=== PATIENT | female | born 1970 | race Hispanic/Latino ===

== ENCOUNTER 2016-09-21 07:56 | Inpatient (IN) | payer OTHER ==
[2016-09-21 09:03] LABS: Hematocrit 34.1 % (30.3-42.9); Hemoglobin 11.3 gm/dl (10.1-14.3); Mean Corpuscular HGB Conc 33 % (30-34); Mean Corpuscular Hemoglobin 28 pg (28-32); Mean Corpuscular Volume 85 fl (79-97); Platelet Count 394 K/mm3 (140-440); Red Blood Count 4.03 M/mm3 (3.65-5.03); Red Cell Distribution Width 13.4 % (13.2-15.2); White Blood Count 19.6 K/mm3 (4.5-11.0)
[2016-09-21 09:17] LABS: BUN/Creatinine Ratio 13.75; Blood Urea Nitrogen 11 mg/dL (7-17); Calcium 8.2 mg/dL (8.4-10.2); Carbon Dioxide 21 mmol/L (22-30); Glucose 404 mg/dL (65-100)
[2016-09-21 09:35] LABS: Anion Gap 25 mmol/L; Chloride 90.7 mmol/L (98-107); Potassium 3.1 mmol/L (3.6-5.0); Sodium 134 mmol/L (137-145)
[2016-09-21 10:52] LABS: Basophils % (Manual) 0 % (0.0-1.8); Blastocytes % (Manual) 0 %
[2016-09-21 10:53] LABS: Diff Status Complete; RBC Morphology Normal
--- NOTE | 2016-09-21 12:21 | Emergency Department Report ---
HPI - General Chief Complaint: Skin/Abscess/Foreign Body Time Seen by Provider: 09/21/16 12:05 - HPI HPI: Room 7 The patient is a 46-year-old female presenting with a chief complaint of buttocks abscess. Patient states for the past week she is "felt miserable." Patient states her symptoms include body aches, subjective fever and chills. Patient states last night she developed nausea vomiting. Patient states approximately one week ago she noticed a "cyst" on her left buttocks that has been draining "red pus." The patient states she has had similar episodes in the past she has same feeling. The patient currently gives her pain a score of 8-9/10 Location: Left buttocks Duration: One week Quality: Pain Severity: 8-9/10 Modifying factors: [see above] Context: [see above] Mode of transportation: Unknown ED Past Medical Hx - Past Medical History Hx Hypertension: Yes Hx Congestive Heart Failure: Yes Hx Diabetes: Yes Hx Renal Disease: Yes (CKD) Additional medical history: pacemaker, chronic back pain, peripheral neuropathy - Surgical History Hx Pacemaker: Yes Hx Internal Defibrillator: Yes Hx Breast Surgery: Yes Additional Surgical History: breast surg x 2 - Family History Family history: no significant - Social History Smoking Status: Current Every Day Smoker Substance Use Type: None (denies illicit drug use) - Medications Home Medications: Home Medications Medication Instructions Recorded Confirmed Last Taken Type metFORMIN [Glucophage] 1,000 mg PO BID 07/31/14 02/08/16 02/07/16 History Lansoprazole [Prevacid] 30 mg PO QDAY 11/29/15 02/08/16 02/07/16 History PARoxetine [Paxil] 40 mg PO DAILY 11/29/15 02/08/16 02/07/16 History Cephalexin [Keflex] 250 mg PO QID #40 capsule 06/25/16 Unknown Rx Ibuprofen [Motrin 600 MG tab] 600 mg PO Q8H PRN #30 tablet 06/25/16 Unknown Rx Clindamycin [Clindamycin CAP] 300 mg PO Q8H #20 cap 06/29/16 Unknown Rx oxyCODONE /ACETAMINOPHEN [Percocet 1 tab PO Q6HR PRN #20 tablet 06/29/16 Unknown Rx 5/325] ED Review of Systems ROS: Stated complaint: INFECTED CYST Other details as noted in HPI Comment: All other systems reviewed and negative Constitutional: chills, fever (subjective) Eyes: denies: eye pain, eye discharge, vision change ENT: denies: ear pain, throat pain Respiratory: denies: cough, shortness of breath, wheezing Cardiovascular: denies: chest pain, palpitations Endocrine: no symptoms reported Gastrointestinal: nausea, vomiting. denies: abdominal pain, diarrhea Musculoskeletal: myalgia Skin: lesions. denies: rash Neurological: denies: headache, weakness, paresthesias Psychiatric: denies: anxiety, depression Hematological/Lymphatic: denies: easy bleeding, easy bruising Physical Exam - Physical Exam Vital Signs: Vital Signs 09/21/16 08:10 Temperature 98.9 F Pulse Rate 110 H Respiratory 19 Rate Blood Pressure 118/71 O2 Sat by Pulse 100 Oximetry Physical Exam: GENERAL: The patient is well-developed well-nourished female lying on stretcher in right lateral decubitus position not appearing to be in acute distress. [] HEENT: Normocephalic. Atraumatic. Extraocular motions are intact. Patient has moist mucous membranes. NECK: Supple. Trachea midline CHEST/LUNGS: Clear to auscultation. There is no respiratory distress noted. HEART/CARDIOVASCULAR: Regular. There is tachycardia. There is no gallop rub or murmur. ABDOMEN: Abdomen is soft, nontender. Patient has normal bowel sounds. There is no abdominal distention. SKIN: . Left perianal gluteal fullness palpated. No overlying erythema. No definite abscess palpated. Intertriginous candidiasis of the gluteal cleft/ perineum There is no diaphoresis. NEURO: The patient is awake, alert, and oriented. The patient is cooperative. The patient has normal speech MUSCULOSKELETAL: There is no evidence of acute injury. ED Course Vital Signs 09/21/16 08:10 Temperature 98.9 F Pulse Rate 110 H Respiratory 19 Rate Blood Pressure 118/71 O2 Sat by Pulse 100 Oximetry ED Medical Decision Making - Lab Data Result diagrams: 09/21/16 08:39 09/21/16 08:39 Laboratory Tests 09/21/16 09/21/16 09/21/16 08:39 08:39 08:39 WBC 19.6 H RBC 4.03 Hgb 11.3 Hct 34.1 MCV 85 MCH 28 MCHC 33 RDW 13.4 Plt Count 394 Add Manual Diff Complete Total Counted 100 Seg Neuts % (Manual) 89.0 H Band Neutrophils % 4.0 Lymphocytes % (Manual) 3.0 L Reactive Lymphs % (Man) 0 Monocytes % (Manual) 3.0 Eosinophils % (Manual) 1.0 Basophils % (Manual) 0 Metamyelocytes % 0 Myelocytes % 0 Promyelocytes % 0 Blast Cells % 0 Nucleated RBC % Not Reportable Seg Neutrophils # Man 17.4 H Band Neutrophils # 0.8 Lymphocytes # (Manual) 0.6 L Abs React Lymphs (Man) 0.0 Monocytes # (Manual) 0.6 Eosinophils # (Manual) 0.2 Basophils # (Manual) 0.0 Metamyelocytes # 0.0 Myelocytes # 0.0 Promyelocytes # 0.0 Blast Cells # 0.0 WBC Morphology Not Reportable Hypersegmented Neuts Not Reportable Hyposegmented Neuts Not Reportable Hypogranular Neuts Not Reportable Smudge Cells Not Reportable Toxic Granulation Not Reportable Toxic Vacuolation Not Reportable Dohle Bodies Not Reportable Pelger-Huet Anomaly Not Reportable Joel Rods Not Reportable Platelet Estimate Appears normal Clumped Platelets Not Reportable Plt Clumps, EDTA Not Reportable Large Platelets Not Reportable Giant Platelets Not Reportable Platelet Satelliting Not Reportable Plt Morphology Comment Not Reportable RBC Morphology Normal Dimorphic RBCs Not Reportable Polychromasia Not Reportable Hypochromasia Not Reportable Poikilocytosis Not Reportable Anisocytosis Not Reportable Microcytosis Not Reportable Macrocytosis Not Reportable Spherocytes Not Reportable Pappenheimer Bodies Not Reportable Sickle Cells Not Reportable Target Cells Not Reportable Tear Drop Cells Not Reportable Ovalocytes Not Reportable Helmet Cells Not Reportable [place] Bodies Not Reportable [place] Rings Not Reportable [place] Cells Not Reportable Bite Cells Not Reportable Crenated Cell Not Reportable Elliptocytes Not Reportable Acanthocytes (Spur) Not Reportable Rouleaux Not Reportable Hemoglobin C Crystals Not Reportable Schistocytes Not Reportable Malaria parasites Not Reportable Prashant Bodies Not Reportable Hem Pathologist Commnt No VBG pH Sodium 134 L Potassium 3.1 L Chloride 90.7 L Carbon Dioxide 21 L Anion Gap 25 BUN 11 Creatinine 0.8 Estimated GFR > 60 BUN/Creatinine Ratio 13.75 Glucose 404 H Calcium 8.2 L HCG, Qual Negative 03/16/17 12:38 WBC RBC Hgb Hct MCV MCH MCHC RDW Plt Count Add Manual Diff Total Counted Seg Neuts % (Manual) Band Neutrophils % Lymphocytes % (Manual) Reactive Lymphs % (Man) Monocytes % (Manual) Eosinophils % (Manual) Basophils % (Manual) Metamyelocytes % Myelocytes % Promyelocytes % Blast Cells % Nucleated RBC % Seg Neutrophils # Man Band Neutrophils # Lymphocytes # (Manual) Abs React Lymphs (Man) Monocytes # (Manual) Eosinophils # (Manual) Basophils # (Manual) Metamyelocytes # Myelocytes # Promyelocytes # Blast Cells # WBC Morphology Hypersegmented Neuts Hyposegmented Neuts Hypogranular Neuts Smudge Cells Toxic Granulation Toxic Vacuolation Dohle Bodies Pelger-Huet Anomaly Joel Rods Platelet Estimate Clumped Platelets Plt Clumps, EDTA Large Platelets Giant Platelets Platelet Satelliting Plt Morphology Comment RBC Morphology Dimorphic RBCs Polychromasia Hypochromasia Poikilocytosis Anisocytosis Microcytosis Macrocytosis Spherocytes Pappenheimer Bodies Sickle Cells Target Cells Tear Drop Cells Ovalocytes Helmet Cells [place] Bodies [place] Rings [place] Cells Bite Cells Crenated Cell Elliptocytes Acanthocytes (Spur) Rouleaux Hemoglobin C Crystals Schistocytes Malaria parasites Prashant Bodies Hem Pathologist Commnt VBG pH 7.454 H Sodium Potassium Chloride Carbon Dioxide Anion Gap BUN Creatinine Estimated GFR BUN/Creatinine Ratio Glucose Calcium HCG, Qual - Radiology Data Radiology results: report reviewed (CT pelvis), image reviewed (CT pelvis) CT pelvis (read by radiologist)-clamped or changes/cellulitis are seen in the left perirectal/perineal soft tissues with no evidence of abscess. - Differential Diagnosis gluteal abscess, deep space infection, Critical care attestation.: If time is entered above; I have spent that time in minutes in the direct care of this critically ill patient, excluding procedure time. ED Disposition Clinical Impression: Leukocytosis, Tachycardia, Hyperglycemia, Gluteal pain, Intertriginous candidiasis Disposition: OP ADMITTED IP TO THIS HOSP Is pt being admited?: Yes Does the pt Need Aspirin: Yes Condition: Fair Referrals: PRIMARY CARE, [Primary Care Provider] - 3-5 Days Time of Disposition: 13:46 (hospitalist paged)
[2016-09-21] MEDS ORDERED: ZOFRAN IV ONE ×2 (12:25→16:59)
[2016-09-21] MEDS ORDERED: NACL 0.9% 1000 ML 1,000 ML IV ONE (12:25)
[2016-09-21] MEDS ORDERED: SUBLIMAZE IV ONE (12:25)
--- NOTE | 2016-09-21 12:57 | Admit Criteria Form ---
Admission Criteria Documentation: CELLULITIS Clinical Indications for Admission to Inpatient Care (Place 'X' for any and all applicable criteria): Admission is indicated for ANY ONE of the following(1)(2)(3)(4)(5): [ ]I. Limb-threatening infection [ X]II. High-risk comorbid condition as indicated by ANY ONE of the following: [ ]a) Uncontrolled diabetes (eg, HbA1c greater than 10% (0.1)) [ ]b) Cirrhosis [ ]c) Neutropenia [ ]d) Asplenia [ ]e) Immunosuppression [X ]f) Symptomatic heart failure [ ]III. Failure of outpatient therapy as indicated by ALL of the following: [ ]a) Progression or no improvement after adequate trial (minimum of 48 hours, with longer period for stable lower extremity infection) [ ]b) Adequate antibiotic regimen as indicated by use of ANY ONE of the following: [ ]i) First-generation cephalosporin (e.g., cephalexin) [ ]ii) Antistaphylococcal penicillin (e.g., dicloxacillin) [ ]iii) Penicillin-allergic patient regimen (clindamycin, extended-spectrum fluoroquinolone, or doxycycline) [ ]iv) Resistant organism (eg, methicillin-resistant Staphylococcus aureus) regimen (6) [ ]c) Outpatient intravenous therapy regimen is not appropriate due to ANY ONE of the following. (7)(8)(9)(10): [ ]i) It was tried and was not successful (eg, progression of infection). [ ]ii) It is not available or cannot be arranged in a clinically appropriate time frame (e.g., the next day). [ ]iii) Clinical presentation (eg, acuity of infection, rapidity of progression, confirmed or suspected bacteremia) is judged to require ALL of the following: [ ]1) Immediate initiation of intravenous therapy ( eg, cannot wait for next day) [ ]2) Intensity of patient monitoring and observation (eg, vital sign measurement, checks for infection progression) that cannot be provided at other than inpatient level of care [ ]IV. Mental status changes [ ]V. Bacteremia [ ]. Hemodynamic instability [ ]VII. Suspected necrotizing soft tissue infection (e.g., gas in tissue)(11)( 12) [ ]VIII. Orbital infection (13)(14) [ ]IX. Associated surgical procedure (e.g., abscess drainage, debridement) not amenable to outpatient, emergency department, or observation care [ ]X. Cutaneous gangrene [ ]XI. High fever (temperature greater than 39.5 degrees C (103.1 degrees F) (oral)) not responsive to outpatient, emergency department, or observation care therapy [ ]XIII. Inpatient admission required rather than observation care (Also use Cellulitis: Observation Care as appropriate) because of ANY ONE of the following : [ ]a) Periorbital or perineal infection that is severe or worsening [ ]b) Severe pain requiring acute inpatient management [ ]c) IV fluid to replace significant ongoing (e.g., for over 24 hours) losses (greater than 3L/m2 per day) [ ]d) Compartment syndrome monitoring (17) [ ]e) Strict or protective (eg, laminar flow) isolation [ ]f) Urgent debridement or skin grafting [ ]g) Bone or joint debridement [ ]h) Immediate inpatient surgery [ ]i) Other condition, treatment or monitoring requiring inpatient admission Extended stay beyond goal length of stay may be needed for (1)(18): [ ]a) Necrotizing soft tissue infection or fasciitis [ ]b) Gram-negative infection [ ]c) Methicillin-resistant Staphylococcal aureus (MRSA) infection [ ]d) Peripheral venous insufficiency with cellulitis [ ]e) Extensive edema [ ]f) Sepsis or continued Hemodynamic instability [ ]g) Continued high fever or mental status change [ ]h) Bacteremia [ ]i) Active serious comorbid conditions ( eg, heart failure, renal insufficiency) The original [facility] content created by [facility] [employer] has been revised. The portions of the content which have been revised are identified through the use of italic text or in bold, and [facility] has neither reviewed nor approved the modified material. All other unmodified content is copyright [facility] Please see references footnoted in the original [facility] [employer] edition 2016 Admission Criteria Met: Yes
--- NOTE | 2016-09-21 13:37 | Cat Scan Report ---
CT of the pelvis with IV contrast. History: Left gluteal perirectal fullness and pain. Findings: There are no pelvic masses or abnormal fluid collections. No adenopathy is seen. The uterus and adnexal regions are unremarkable. There is edema in the left perirectal fat with no evidence of a focal fluid collection or other evidence of a perirectal abscess. The edema extends into the perineal and subcutaneous fat as well. Impression: Inflammatory changes/cellulitis are seen in the left perirectal/perineal soft tissues with no evidence of abscess.
[2016-09-21] MEDS ORDERED: LEVAQUIN 750MG/150ML 750 MG/150 ML BAG IV ONE (13:43)
[2016-09-21] MEDS ORDERED: ZOFRAN ONE (16:57)
[2016-09-21] MEDS ORDERED: PERCOCET 5/325 ONE (16:57)
[2016-09-21] MEDS ORDERED: PERCOCET 5/325 PO ONE (17:00)
--- NOTE | 2016-09-21 17:45 | History and Physical Report ---
History of Present Illness Date of examination: 09/21/16 Date of admission: 09/21/16 13:50 History of present illness: The patient is a 46-year-old female presenting with a chief complaint of buttocks abscess. Patient states for the past week she is "felt miserable." Patient states her symptoms include body aches, subjective fever and chills. Patient states last night she developed nausea vomiting. Patient states approximately one week ago she noticed a "cyst" on her left buttocks that has been draining "red pus." The patient states she has had similar episodes in the past she has same feeling. The patient currently gives her pain a score of 8-9/10 Past History Past Medical History: diabetes, GERD Medications and Allergies Allergies Allergy/AdvReac Type Severity Reaction Status Date / Time Sulfa (Sulfonamide Allergy Anaphylaxis Verified 09/21/16 08:14 Antibiotics) vancomycin Allergy "SHUTS Verified 09/21/16 08:14 KIDNEYS DOWN" Home Medications Medication Instructions Recorded Confirmed Last Taken Type metFORMIN [Glucophage] 1,000 mg PO BID 07/31/14 02/08/16 02/07/16 History Lansoprazole [Prevacid] 30 mg PO QDAY 11/29/15 02/08/16 02/07/16 History PARoxetine [Paxil] 40 mg PO DAILY 11/29/15 02/08/16 02/07/16 History Cephalexin [Keflex] 250 mg PO QID #40 capsule 06/25/16 Unknown Rx Ibuprofen [Motrin 600 MG tab] 600 mg PO Q8H PRN #30 tablet 06/25/16 Unknown Rx Clindamycin [Clindamycin CAP] 300 mg PO Q8H #20 cap 06/29/16 Unknown Rx oxyCODONE /ACETAMINOPHEN [Percocet 1 tab PO Q6HR PRN #20 tablet 06/29/16 Unknown Rx 5/325] Exam - Constitutional Vitals: Temp Pulse Resp BP Pulse Ox 98.9 F 104 H 16 137/84 97 09/21/16 17:05 09/21/16 17:05 09/21/16 17:05 09/21/16 17:05 09/21/16 17:05 General appearance: Present: no acute distress - EENT Eyes: Present: PERRL, EOM intact ENT: hearing intact, clear oral mucosa - Neck Neck: Present: supple, normal ROM - Respiratory Respiratory effort: normal Respiratory: bilateral: CTA - Cardiovascular Rhythm: regular Heart Sounds: Present: S1 & S2 - Extremities Extremities: no ischemia, No edema - Abdominal General gastrointestinal: Present: soft, non-tender, non-distended, normal bowel sounds - Rectal Rectal Exam: other (left buttock erythema and tenderness) - Musculoskeletal Musculoskeletal: strength equal bilaterally - Psychiatric Psychiatric: appropriate mood/affect, intact judgment & insight - Neurologic Neurologic: CNII-XII intact, moves all extremities Results - Labs CBC & Chem 7: 09/21/16 08:39 09/21/16 08:39 Labs: Laboratory Last Values WBC 19.6 K/mm3 (4.5-11.0) H 09/21/16 08:39 RBC 4.03 M/mm3 (3.65-5.03) 09/21/16 08:39 Hgb 11.3 gm/dl (10.1-14.3) 09/21/16 08:39 Hct 34.1 % (30.3-42.9) 09/21/16 08:39 MCV 85 fl (79-97) 09/21/16 08:39 MCH 28 pg (28-32) 09/21/16 08:39 MCHC 33 % (30-34) 09/21/16 08:39 RDW 13.4 % (13.2-15.2) 09/21/16 08:39 Plt Count 394 K/mm3 (140-440) 09/21/16 08:39 Add Manual Diff Complete 09/21/16 08:39 Total Counted 100 09/21/16 08:39 Seg Neuts % (Manual) 89.0 % (40.0-70.0) H 09/21/16 08:39 Band Neutrophils % 4.0 % 09/21/16 08:39 Lymphocytes % (Manual) 3.0 % (13.4-35.0) L 09/21/16 08:39 Reactive Lymphs % (Man) 0 % 09/21/16 08:39 Monocytes % (Manual) 3.0 % (0.0-7.3) 09/21/16 08:39 Eosinophils % (Manual) 1.0 % (0.0-4.3) 09/21/16 08:39 Basophils % (Manual) 0 % (0.0-1.8) 09/21/16 08:39 Metamyelocytes % 0 % 09/21/16 08:39 Myelocytes % 0 % 09/21/16 08:39 Promyelocytes % 0 % 09/21/16 08:39 Blast Cells % 0 % 09/21/16 08:39 Nucleated RBC % Not Reportable 09/21/16 08:39 Seg Neutrophils # Man 17.4 K/mm3 (1.8-7.7) H 09/21/16 08:39 Band Neutrophils # 0.8 K/mm3 09/21/16 08:39 Lymphocytes # (Manual) 0.6 K/mm3 (1.2-5.4) L 09/21/16 08:39 Abs React Lymphs (Man) 0.0 K/mm3 09/21/16 08:39 Monocytes # (Manual) 0.6 K/mm3 (0.0-0.8) 09/21/16 08:39 Eosinophils # (Manual) 0.2 K/mm3 (0.0-0.4) 09/21/16 08:39 Basophils # (Manual) 0.0 K/mm3 (0.0-0.1) 09/21/16 08:39 Metamyelocytes # 0.0 K/mm3 09/21/16 08:39 Myelocytes # 0.0 K/mm3 09/21/16 08:39 Promyelocytes # 0.0 K/mm3 09/21/16 08:39 Blast Cells # 0.0 K/mm3 09/21/16 08:39 WBC Morphology Not Reportable 09/21/16 08:39 Hypersegmented Neuts Not Reportable 09/21/16 08:39 Hyposegmented Neuts Not Reportable 09/21/16 08:39 Hypogranular Neuts Not Reportable 09/21/16 08:39 Smudge Cells Not Reportable 09/21/16 08:39 Toxic Granulation Not Reportable 09/21/16 08:39 Toxic Vacuolation Not Reportable 09/21/16 08:39 Dohle Bodies Not Reportable 09/21/16 08:39 Pelger-Huet Anomaly Not Reportable 09/21/16 08:39 Joel Rods Not Reportable 09/21/16 08:39 Platelet Estimate Appears normal 09/21/16 08:39 Clumped Platelets Not Reportable 09/21/16 08:39 Plt Clumps, EDTA Not Reportable 09/21/16 08:39 Large Platelets Not Reportable 09/21/16 08:39 Giant Platelets Not Reportable 09/21/16 08:39 Platelet Satelliting Not Reportable 09/21/16 08:39 Plt Morphology Comment Not Reportable 09/21/16 08:39 RBC Morphology Normal 09/21/16 08:39 Dimorphic RBCs Not Reportable 09/21/16 08:39 Polychromasia Not Reportable 09/21/16 08:39 Hypochromasia Not Reportable 09/21/16 08:39 Poikilocytosis Not Reportable 09/21/16 08:39 Anisocytosis Not Reportable 09/21/16 08:39 Microcytosis Not Reportable 09/21/16 08:39 Macrocytosis Not Reportable 09/21/16 08:39 Spherocytes Not Reportable 09/21/16 08:39 Pappenheimer Bodies Not Reportable 09/21/16 08:39 Sickle Cells Not Reportable 09/21/16 08:39 Target Cells Not Reportable 09/21/16 08:39 Tear Drop Cells Not Reportable 09/21/16 08:39 Ovalocytes Not Reportable 09/21/16 08:39 Helmet Cells Not Reportable 09/21/16 08:39 [place] Bodies Not Reportable 09/21/16 08:39 [place] Rings Not Reportable 09/21/16 08:39 [place] Cells Not Reportable 09/21/16 08:39 Bite Cells Not Reportable 09/21/16 08:39 Crenated Cell Not Reportable 09/21/16 08:39 Elliptocytes Not Reportable 09/21/16 08:39 Acanthocytes (Spur) Not Reportable 09/21/16 08:39 Rouleaux Not Reportable 09/21/16 08:39 Hemoglobin C Crystals Not Reportable 09/21/16 08:39 Schistocytes Not Reportable 09/21/16 08:39 Malaria parasites Not Reportable 09/21/16 08:39 Prashant Bodies Not Reportable 09/21/16 08:39 Hem Pathologist Commnt No 09/21/16 08:39 VBG pH 7.454 (7.320-7.420) H 09/21/16 12:38 Sodium 134 mmol/L (137-145) L 09/21/16 08:39 Potassium 3.1 mmol/L (3.6-5.0) L 09/21/16 08:39 Chloride 90.7 mmol/L (98-107) L 09/21/16 08:39 Carbon Dioxide 21 mmol/L (22-30) L 09/21/16 08:39 Anion Gap 25 mmol/L 09/21/16 08:39 BUN 11 mg/dL (7-17) 09/21/16 08:39 Creatinine 0.8 mg/dL (0.7-1.2) 09/21/16 08:39 Estimated GFR > 60 ml/min 09/21/16 08:39 BUN/Creatinine Ratio 13.75 % 09/21/16 08:39 Glucose 404 mg/dL (65-100) H 09/21/16 08:39 Calcium 8.2 mg/dL (8.4-10.2) L 09/21/16 08:39 HCG, Qual Negative (Negative) 09/21/16 08:39 Assessment and Plan - Patient Problems (1) Cellulitis of buttock, left Current Visit: Yes Status: Acute Plan to address problem: Start IV Zosyn. Follow blood cultures. (2) Diabetes mellitus Current Visit: Yes Status: Acute Qualifiers: Diabetes mellitus type: D Diabetes mellitus complication status: D Diabetes mellitus complication detail: D Diabetic retinopathy severity: D Proliferative retinopathy type: P Diabetes mellitus macular edema: D Diabetes mellitus lobsterman insulin use: D Laterality: L Chronic kidney disease stage: C Plan to address problem: Accu-Cheks, sliding scale insulin, follow hemoglobin A1c (3) CHF (congestive heart failure) Current Visit: Yes Status: Acute Qualifiers: Congestive heart failure type: C Congestive heart failure chronicity: C Plan to address problem: 2-D echo. Continue meds (4) HTN (hypertension), benign Current Visit: No Status: Acute Plan to address problem: Control. Continue meds
[2016-09-21] MEDS ORDERED: NON-FORMULARY (Lansoprazole [Prevacid] 30 MG) PO SCH (18:00)
[2016-09-21] MEDS ORDERED: LEVAQUIN 500MG/100ML 500 MG/100 ML BAG IV SCH (18:00)
[2016-09-21] MEDS: PAXIL PO SCH (20:09)
[2016-09-21] MEDS: PERCOCET 5/325 PO PRN (20:09)
[2016-09-21] MEDS: GLUCOPHAGE PO SCH (22:11)
[2016-09-22] MEDS: ZOFRAN IV PRN ×4 (00:53→18:20)
[2016-09-22 04:36] LABS: Hematocrit 31.1 % (30.3-42.9); Hemoglobin 10.3 gm/dl (10.1-14.3); Mean Corpuscular HGB Conc 33 % (30-34); Mean Corpuscular Hemoglobin 28 pg (28-32); Mean Corpuscular Volume 85 fl (79-97); Platelet Count 343 K/mm3 (140-440); Red Blood Count 3.69 M/mm3 (3.65-5.03); Red Cell Distribution Width 13.4 % (13.2-15.2); White Blood Count 19.6 K/mm3 (4.5-11.0)
[2016-09-22 05:34] LABS: Alanine Aminotransferase 6 units/L (7-56); Albumin 2.6 g/dL (3.9-5); Albumin/Globulin Ratio 0.7 %; Alkaline Phosphatase 130 units/L (35-129); Anion Gap 22 mmol/L; BUN/Creatinine Ratio 16.66; Bilirubin,Total 0.3 mg/dL (0.1-1.2); Blood Urea Nitrogen 10 mg/dL (7-17); Calcium 7.4 mg/dL (8.4-10.2); Carbon Dioxide 21 mmol/L (22-30); Chloride 90.8 mmol/L (98-107); Glucose 252 mg/dL (65-100); Sodium 131 mmol/L (137-145); Total Protein 6.6 g/dL (6.3-8.2)
[2016-09-22 06:58] LABS: Potassium 2.8 mmol/L (3.6-5.0)
[2016-09-22 07:03] LABS: Basophils % (Manual) 0 % (0.0-1.8); Blastocytes % (Manual) 0 %
[2016-09-22 07:08] LABS: Anisocytosis Few; Diff Status Complete
[2016-09-22] MEDS: PERCOCET 5/325 PO PRN ×3 (07:40→20:08)
[2016-09-22] MEDS ORDERED: NACL 0.9% 500 ML 500 ML IV ONE (09:32)
[2016-09-22] MEDS ORDERED: GLUCOPHAGE PO SCH (10:17)
[2016-09-22] MEDS: PAXIL PO SCH (11:21)
[2016-09-22] MEDS: KCL 10MEQ/100ML 10 MEQ/100 ML BAG IV SCH ×4 (11:21→21:52)
[2016-09-22] MEDS: PROTONIX PO SCH (11:23)
[2016-09-22] MEDS: HABITROL TD SCH (11:35)
[2016-09-22] MEDS: GLUCOPHAGE PO SCH (12:12)
--- NOTE | 2016-09-22 14:44 | Progress Note ---
Assessment and Plan Assessment and plan: Cellulitis right gluteal region. Continue IV antibiotics with Levaquin IV. Add Flagyl. Continue IV fluids. Consult wound nurse Diabetes mellitus type II. Fingerstick glucose before every meal and at bedtime Leukocytosis secondary to cellulitis Hypokalemia. Replace and recheck later today. Hyponatremia. iv fluids with Normal saline. DVT prophylaxis with Lovenox History Interval history: Patient is 46-year-old presented with right gluteal cellulitis, drainage from cellulitis Hospitalist Physical - Physical exam Narrative exam: Gen: not in acute distress HEENT: normocephalic,atraumatic Neck :supple, no JVD Lungs: clear to auscultation bilaterally, no crackles no wheezes Heart: S1 and S2 regular, no murmurs no gallops, Abdomen: soft nontender, nondistended, normal bowel sounds Extremities: no edema, no clubbing or cyanosis Neuro: Awake alert oriented x 3, no focal signs. Psych: Normal mood Skin: cellulitis,redness tender, right lower gluteal region - Constitutional Vitals: Temp Pulse Resp BP Pulse Ox 99.9 F H 103 H 18 146/70 96 09/21/16 23:00 09/21/16 23:00 09/22/16 07:40 09/21/16 23:00 09/21/16 23:00 General appearance: Present: no acute distress Results - Labs CBC & Chem 7: 09/23/16 09:10 09/23/16 09:10 Labs: Laboratory Last Values WBC 19.6 K/mm3 (4.5-11.0) H 09/22/16 03:53 RBC 3.69 M/mm3 (3.65-5.03) 09/22/16 03:53 Hgb 10.3 gm/dl (10.1-14.3) 09/22/16 03:53 Hct 31.1 % (30.3-42.9) 09/22/16 03:53 MCV 85 fl (79-97) 09/22/16 03:53 MCH 28 pg (28-32) 09/22/16 03:53 MCHC 33 % (30-34) 09/22/16 03:53 RDW 13.4 % (13.2-15.2) 09/22/16 03:53 Plt Count 343 K/mm3 (140-440) 09/22/16 03:53 Add Manual Diff Complete 09/22/16 03:53 Total Counted 100 09/22/16 03:53 Seg Neuts % (Manual) 80.0 % (40.0-70.0) H 09/22/16 03:53 Band Neutrophils % 0 % 09/22/16 03:53 Lymphocytes % (Manual) 13.0 % (13.4-35.0) L 09/22/16 03:53 Reactive Lymphs % (Man) 1.0 % 09/22/16 03:53 Monocytes % (Manual) 4.0 % (0.0-7.3) 09/22/16 03:53 Eosinophils % (Manual) 1.0 % (0.0-4.3) 09/22/16 03:53 Basophils % (Manual) 0 % (0.0-1.8) 09/22/16 03:53 Metamyelocytes % 0 % 09/22/16 03:53 Myelocytes % 1.0 % 09/22/16 03:53 Promyelocytes % 0 % 09/22/16 03:53 Blast Cells % 0 % 09/22/16 03:53 Nucleated RBC % Not Reportable 09/22/16 03:53 Seg Neutrophils # Man 15.7 K/mm3 (1.8-7.7) H 09/22/16 03:53 Band Neutrophils # 0.0 K/mm3 09/22/16 03:53 Lymphocytes # (Manual) 2.5 K/mm3 (1.2-5.4) 09/22/16 03:53 Abs React Lymphs (Man) 0.2 K/mm3 09/22/16 03:53 Monocytes # (Manual) 0.8 K/mm3 (0.0-0.8) 09/22/16 03:53 Eosinophils # (Manual) 0.2 K/mm3 (0.0-0.4) 09/22/16 03:53 Basophils # (Manual) 0.0 K/mm3 (0.0-0.1) 09/22/16 03:53 Metamyelocytes # 0.0 K/mm3 09/22/16 03:53 Myelocytes # 0.2 K/mm3 09/22/16 03:53 Promyelocytes # 0.0 K/mm3 09/22/16 03:53 Blast Cells # 0.0 K/mm3 09/22/16 03:53 WBC Morphology Not Reportable 09/22/16 03:53 Hypersegmented Neuts Not Reportable 09/22/16 03:53 Hyposegmented Neuts Not Reportable 09/22/16 03:53 Hypogranular Neuts Not Reportable 09/22/16 03:53 Smudge Cells Not Reportable 09/22/16 03:53 Toxic Granulation Not Reportable 09/22/16 03:53 Toxic Vacuolation Not Reportable 09/22/16 03:53 Dohle Bodies Not Reportable 09/22/16 03:53 Pelger-Huet Anomaly Not Reportable 09/22/16 03:53 Joel Rods Not Reportable 09/22/16 03:53 Platelet Estimate Appears normal 09/22/16 03:53 Clumped Platelets Not Reportable 09/22/16 03:53 Plt Clumps, EDTA Not Reportable 09/22/16 03:53 Large Platelets Not Reportable 09/22/16 03:53 Giant Platelets Not Reportable 09/22/16 03:53 Platelet Satelliting Not Reportable 09/22/16 03:53 Plt Morphology Comment Not Reportable 09/22/16 03:53 RBC Morphology Not Reportable 09/22/16 03:53 Dimorphic RBCs Not Reportable 09/22/16 03:53 Polychromasia Not Reportable 09/22/16 03:53 Hypochromasia Not Reportable 09/22/16 03:53 Poikilocytosis Not Reportable 09/22/16 03:53 Anisocytosis Few 09/22/16 03:53 Microcytosis Not Reportable 09/22/16 03:53 Macrocytosis Not Reportable 09/22/16 03:53 Spherocytes Not Reportable 09/22/16 03:53 Pappenheimer Bodies Not Reportable 09/22/16 03:53 Sickle Cells Not Reportable 09/22/16 03:53 Target Cells Not Reportable 09/22/16 03:53 Tear Drop Cells Not Reportable 09/22/16 03:53 Ovalocytes Not Reportable 09/22/16 03:53 Helmet Cells Not Reportable 09/22/16 03:53 [place] Bodies Not Reportable 09/22/16 03:53 [place] Rings Not Reportable 09/22/16 03:53 [place] Cells Not Reportable 09/22/16 03:53 Bite Cells Not Reportable 09/22/16 03:53 Crenated Cell Not Reportable 09/22/16 03:53 Elliptocytes Not Reportable 09/22/16 03:53 Acanthocytes (Spur) Not Reportable 09/22/16 03:53 Rouleaux Not Reportable 09/22/16 03:53 Hemoglobin C Crystals Not Reportable 09/22/16 03:53 Schistocytes Not Reportable 09/22/16 03:53 Malaria parasites Not Reportable 09/22/16 03:53 Prashant Bodies Not Reportable 09/22/16 03:53 Hem Pathologist Commnt No 09/22/16 03:53 VBG pH 7.454 (7.320-7.420) H 09/21/16 12:38 Sodium 131 mmol/L (137-145) L 09/22/16 03:53 Potassium 2.8 mmol/L (3.6-5.0) L* 09/22/16 03:53 Chloride 90.8 mmol/L (98-107) L 09/22/16 03:53 Carbon Dioxide 21 mmol/L (22-30) L 09/22/16 03:53 Anion Gap 22 mmol/L 09/22/16 03:53 BUN 10 mg/dL (7-17) 09/22/16 03:53 Creatinine 0.6 mg/dL (0.7-1.2) L 09/22/16 03:53 Estimated GFR > 60 ml/min 09/22/16 03:53 BUN/Creatinine Ratio 16.66 % 09/22/16 03:53 Glucose 252 mg/dL (65-100) H 09/22/16 03:53 Calcium 7.4 mg/dL (8.4-10.2) L 09/22/16 03:53 Total Bilirubin 0.3 mg/dL (0.1-1.2) 09/22/16 03:53 AST 10 units/L (5-40) 09/22/16 03:53 ALT 6 units/L (7-56) L 09/22/16 03:53 Alkaline Phosphatase 130 units/L (35-129) H 09/22/16 03:53 Total Protein 6.6 g/dL (6.3-8.2) 09/22/16 03:53 Albumin 2.6 g/dL (3.9-5) L 09/22/16 03:53 Albumin/Globulin Ratio 0.7 % 09/22/16 03:53 HCG, Qual Negative (Negative) 09/21/16 08:39
[2016-09-22] MEDS: LEVAQUIN 750MG/150ML 750 MG/150 ML BAG IV SCH (18:16)
[2016-09-22] MEDS: FLAGYL 500 MG/100 ML 500 MG/100 ML BAG IV SCH ×2 (20:09→23:18)
[2016-09-22] MEDS: LOVENOX SUB-Q SCH (21:57)
[2016-09-22] MEDS: DOMEBORO PACKET TP SCH (21:57)
[2016-09-23] MEDS: PERCOCET 5/325 PO PRN ×4 (00:49→23:10)
[2016-09-23] MEDS: ZOFRAN IV PRN ×5 (00:49→21:32)
[2016-09-23] MEDS: FLAGYL 500 MG/100 ML 500 MG/100 ML BAG IV SCH ×3 (05:23→22:38)
[2016-09-23] MEDS: DOMEBORO PACKET TP SCH ×2 (05:31→22:45)
[2016-09-23] MEDS: PAXIL PO SCH (09:40)
[2016-09-23] MEDS: PROTONIX PO SCH (09:41)
[2016-09-23] MEDS: HABITROL TD SCH (09:41)
[2016-09-23 09:43] LABS: Hematocrit 32.1 % (30.3-42.9); Hemoglobin 10.7 gm/dl (10.1-14.3); Mean Corpuscular HGB Conc 33 % (30-34); Mean Corpuscular Hemoglobin 28 pg (28-32); Mean Corpuscular Volume 84 fl (79-97); Platelet Count 367 K/mm3 (140-440); Red Cell Distribution Width 13.5 % (13.2-15.2)
[2016-09-23 09:48] LABS: White Blood Count 20.7 K/mm3 (4.5-11.0)
[2016-09-23 09:52] LABS: Anion Gap 23 mmol/L; BUN/Creatinine Ratio 11.66; Blood Urea Nitrogen 7 mg/dL (7-17); Calcium 7.1 mg/dL (8.4-10.2); Carbon Dioxide 20 mmol/L (22-30); Chloride 95.5 mmol/L (98-107); Glucose 260 mg/dL (65-100); Potassium 3.1 mmol/L (3.6-5.0); Sodium 135 mmol/L (137-145)
--- NOTE | 2016-09-23 10:17 | Consultation ---
History of Present Illness Consult date: 09/23/16 Reason for consult: other (Perineal drainage) Chief complaint: Perineal drainage and pain. - History of present illness History of present illness: 46 years old female history the diabetes mellitus admitted to the hospital because of perineal pain and drainage. CT of the abdomen and pelvis showed cellulitis in the left perineal region. We are consulted because of the persistent drainage. Past History Past Medical History: diabetes, GERD Past Surgical History: Other (incision and drainage of breast abscess.) Medications and Allergies Allergies Allergy/AdvReac Type Severity Reaction Status Date / Time Sulfa (Sulfonamide Allergy Anaphylaxis Verified 09/21/16 08:14 Antibiotics) vancomycin Allergy "SHUTS Verified 09/21/16 08:14 KIDNEYS DOWN" Home Medications Medication Instructions Recorded Confirmed Last Taken Type metFORMIN [Glucophage] 1,000 mg PO BID 07/31/14 02/08/16 02/07/16 History Lansoprazole [Prevacid] 30 mg PO QDAY 11/29/15 02/08/16 02/07/16 History PARoxetine [Paxil] 40 mg PO DAILY 11/29/15 02/08/16 02/07/16 History Cephalexin [Keflex] 250 mg PO QID #40 capsule 06/25/16 Unknown Rx Ibuprofen [Motrin 600 MG tab] 600 mg PO Q8H PRN #30 tablet 06/25/16 Unknown Rx Clindamycin [Clindamycin CAP] 300 mg PO Q8H #20 cap 06/29/16 Unknown Rx oxyCODONE /ACETAMINOPHEN [Percocet 1 tab PO Q6HR PRN #20 tablet 06/29/16 Unknown Rx 5/325] Active Meds: Active Medications Aluminum Sulfate/Calcium Acetate ([place] Packet) 1 each TP Q8HR [facility] Last Admin: 09/23/16 05:31 Dose: 1 each Enoxaparin Sodium (Lovenox) 40 mg SUB-Q QDAY@2200 [facility] Last Admin: 09/22/16 21:57 Dose: 40 mg Levofloxacin/Dextrose (Levaquin 750mg/150ml) 750 mg in 150 mls @ 150 mls/hr IV Q24H MARLO PRN Reason: Protocol Last Admin: 09/22/16 18:16 Dose: 150 mls/hr Metronidazole (Flagyl 500 Mg/100 Ml) 500 mg in 100 mls @ 100 mls/hr IV Q8HR [facility] Last Admin: 09/23/16 05:23 Dose: 100 mls/hr Ibuprofen (Motrin) 600 mg PO Q8H PRN PRN Reason: Pain Insulin Human Isoph/Insulin Regular (Novolin 70/30) 8 unit SUB-Q BIDDIAB [facility] Last Admin: 09/23/16 08:52 Dose: 8 unit Nicotine (Habitrol) 21 mg TD QDAY [facility] Last Admin: 09/23/16 09:41 Dose: 21 mg Ondansetron HCl (Zofran) 4 mg IV Q4H PRN PRN Reason: Nausea And Vomiting Last Admin: 09/23/16 05:21 Dose: 4 mg Oxycodone/Acetaminophen (Percocet 5/325) 1 tab PO Q6HR PRN PRN Reason: Pain Last Admin: 09/23/16 05:21 Dose: 1 tab Pantoprazole Sodium (Protonix) 40 mg PO DAILY [facility] Last Admin: 09/23/16 09:41 Dose: 40 mg Paroxetine HCl (Paxil) 40 mg PO DAILY [facility] Last Admin: 09/23/16 09:40 Dose: 40 mg Review of Systems - Constitutional weight loss (she reportedly secondary to diabetic neuropathy.) Exam Vital Signs Temp Pulse Resp BP Pulse Ox 98.9 F 110 H 19 118/71 100 09/21/16 08:10 09/21/16 08:10 09/21/16 08:10 09/21/16 08:10 09/21/16 08:10 - General physical appearance Positive: well developed, well nourished, no distress - Eyes Positive: PERRL, normal occular movement - ENT Positive: normal pinna, normal nares, normal mucosa, no hearing loss, no congestion - Neck Positive: no masses, no bruits, trachea midline, no venous distension - Respiratory Positive: normal expansion, normal respiratory effort, clear to auscultation - Cardiovascular Rhythm: regular Heart Sounds: Present: S1 & S2 - Breasts Breasts: deferred - Abdomen Abdomen: Present: soft, bowel sounds normal. Absent: tender - Genitourinary Female Genitourinary: normal - Rectum Rectum: normal spincter tone, no hemorrhoids - Integumentary other (redness, induration and tenderness in the posterior left perineal area ) Results - Labs 09/23/16 09:10 09/23/16 09:10 Abnormal lab results 09/22/16 09/23/16 09/23/16 Range/Units 15:29 06:20 09:10 WBC 20.7 H (4.5-11.0) K/mm3 Sodium (137-145) mmol/L Potassium 3.2 L (3.6-5.0) mmol/L Chloride (98-107) mmol/L Carbon Dioxide (22-30) mmol/L Creatinine (0.7-1.2) mg/dL Glucose (65-100) mg/dL Hemoglobin A1c 14.3 H (4-6) % Calcium (8.4-10.2) mg/dL 09/23/16 Range/Units 09:10 WBC (4.5-11.0) K/mm3 Sodium 135 L (137-145) mmol/L Potassium 3.1 L (3.6-5.0) mmol/L Chloride 95.5 L (98-107) mmol/L Carbon Dioxide 20 L (22-30) mmol/L Creatinine 0.6 L (0.7-1.2) mg/dL Glucose 260 H (65-100) mg/dL Hemoglobin A1c (4-6) % Calcium 7.1 L (8.4-10.2) mg/dL Diabetes panel 09/22/16 09/23/16 09/23/16 Range/Units 15:29 06:20 09:10 Sodium 135 L (137-145) mmol/L Potassium 3.2 L 3.1 L (3.6-5.0) mmol/L Chloride 95.5 L (98-107) mmol/L Carbon Dioxide 20 L (22-30) mmol/L BUN 7 (7-17) mg/dL Creatinine 0.6 L (0.7-1.2) mg/dL Glucose 260 H (65-100) mg/dL Hemoglobin A1c 14.3 H (4-6) % Calcium 7.1 L (8.4-10.2) mg/dL Calcium panel 09/23/16 Range/Units 09:10 Calcium 7.1 L (8.4-10.2) mg/dL Pituitary panel 09/22/16 09/23/16 Range/Units 15:29 09:10 Sodium 135 L (137-145) mmol/L Potassium 3.2 L 3.1 L (3.6-5.0) mmol/L Chloride 95.5 L (98-107) mmol/L Carbon Dioxide 20 L (22-30) mmol/L BUN 7 (7-17) mg/dL Creatinine 0.6 L (0.7-1.2) mg/dL Glucose 260 H (65-100) mg/dL Calcium 7.1 L (8.4-10.2) mg/dL Adrenal panel 09/22/16 09/23/16 Range/Units 15:29 09:10 Sodium 135 L (137-145) mmol/L Potassium 3.2 L 3.1 L (3.6-5.0) mmol/L Chloride 95.5 L (98-107) mmol/L Carbon Dioxide 20 L (22-30) mmol/L BUN 7 (7-17) mg/dL Creatinine 0.6 L (0.7-1.2) mg/dL Glucose 260 H (65-100) mg/dL Calcium 7.1 L (8.4-10.2) mg/dL - Imaging CT scan - abdomen: report reviewed, image reviewed (CT reviewed with Dr. Banegas. There is an area in the left perineal region more superficial that seems to be liquifying and has some bubbles.) Assessment and Plan Impression: #1. Cellulitis and abscess left perineal area. 2. Diabetes mellitus. Plans: Incision and drainage of left perineal area under general anesthesia in the operating room. Patient was explained the operative procedure, risks and complications. She requested to have the procedure performed.
[2016-09-23] MEDS ORDERED: ZOFRAN IV PRN (10:51)
[2016-09-23] MEDS ORDERED: SUBLIMAZE ONE ×2 (10:55→11:30)
[2016-09-23] MEDS ORDERED: DIPRIVAN 10 MG/ML IV ONE (10:55)
[2016-09-23] MEDS ORDERED: PEPCID IV ONE (11:00)
[2016-09-23] MEDS ORDERED: NACL 0.9% 1000 ML 1,000 ML ONE ×2 (11:01→13:29)
--- NOTE | 2016-09-23 11:01 | Anesthesia Consultation ---
Anesthesia Consult and Med Hx Date of service: 09/23/16 - Airway Anesthetic Teeth Evaluation: Edentulous ROM Head & Neck: Adequate Mental/Hyoid Distance: Adequate Mallampati Class: Class II Intubation Access Assessment: Probably Good - Pulmonary Exam CTA: Yes - Cardiac Exam Cardiac Exam: RRR - Pre-Operative Health Status ASA Pre-Surgery Classification: ASA3, Emergency Proposed Anesthetic Plan: General - Pulmonary Hx Smoking: Yes (1PPD) Hx Asthma: No COPD: No Hx Pneumonia: No Hx Sleep Apnea: No - Cardiovascular System Hx Hypertension: No Hx Coronary Artery Disease: No (H/O CHF, EF 30%) Hx Cardia Arrhythmia: Yes (H/O AFIB) Hx Pacemaker: Yes Hx Internal Defibrillator: Yes - Central Nervous System Hx Seizures: No CVA: No - Endocrine Hx Renal Disease: No Hx End Stage Renal Disease: No Hx Insulin Dependent Diabetes: Yes Hx Thyroid Disease: No Hx Hypothyroidism: No - Other Systems Hx Cancer: No Hx Obesity: No
[2016-09-23] MEDS ORDERED: XYLOCAINE MPF 2% ONE (11:09)
[2016-09-23] MEDS ORDERED: QUELICIN ONE (11:10)
--- NOTE | 2016-09-23 11:14 | Post Anesthesia Evaluation ---
- Post Anesthesia Evaluation Patient Participated: Yes Airway Patent: Yes Stable Respiratory Function: Yes Nausea/Vomiting: No Temp > 96.8F: Yes Pain Manageable: Yes Adequeate Hydration: Yes Anesthesia Complications: No Block Receding Appropriately: Not Applicable Patient on Ventilator: No
--- NOTE | 2016-09-23 11:14 | Anesthesia Day of Surgery ---
Anesthesia Day of Surgery - Day of Surgery Patient Examined: Yes Patient H&P Reviewed: Yes Patient is NPO: Yes
[2016-09-23] MEDS ORDERED: MARCAINE 0.5% INFILTRATI ONE (11:34)
[2016-09-23] MEDS ORDERED: NACL 0.9% IR ONE (11:34)
[2016-09-23] MEDS ORDERED: ZOFRAN ONE (11:41)
--- NOTE | 2016-09-23 12:34 | Operative Report ---
Operative Report Operative Report: Date of operation: 09/23/2016. Preoperative diagnosis: Abscess left perineal area. Postoperative diagnosis: #1. Abscess left buttock and perineal area. #2. Necrotizing cellulitis left buttock and perineal area. Operation: #1. Incision and drainage of abscess left buttock and perineal area. #2. Excisional debridement of cellulitis left buttock and perineal area. Surgeon: Ming Rodriguez M.D. Findings: 46 years old female admitted with drainage and induration and pain in the left buttock and perineal area. A CT scan of the abdomen and pelvis 2 days ago showed extensive cellulitis of that area. The patient drainage and pain persisted, the white blood count continued to increase. We were consulted for evaluation. The CT findings were discussed with the radiologist and we were concerned about abscess development by this time. At operation we found abscess in the area of interest with extensive necrotizing cellulitis or soft tissue in the left buttock and perineal area. Procedure: Under general anesthesia the patient was put in the decubitus prone position. The buttocks were spread with tape. The area was prepped and draped in the usual sterile manner. Then at the point of drainage we made an incision big enough to admit my index finger which was used to probe the subcutaneous tissue and immediately a pocket of pus was encountered. This incision was extended to the left anterolateral position of the perianal area in the buttock. The incision was extended laterally and immediately a chunk of necrotic tissue was easily removed. Then we continued debridement of the necrotic tissue encountered. We noticed that the cavity was radiating posteriorly or superiorly in the left buttock, so another incision was made radially in the posterior-lateral perianal area of the buttock. Some more necrotic tissue was encountered at that site and it was removed by sharp dissection. The necrotic tissue under the bridge of skin between the 2 incisions was also removed by dissection. The area of interest was about 15 x 8 cm and about 4 cm deep making it about 500 cm. The wound was irrigated with peroxide and normal saline solution mixed half and half and then again irrigated with plain normal saline solution until clear. The wounds were packed with Kerlix gauze soaked in Betadine solution. Then they were dressed with fluffs and AVD pads. The patient was then returned to the supine position , awakened, extubated and transferred to the recovery room in good condition. Estimated blood loss: Less than 50 mL. Intravenous fluid replacement: Crystalloids. Condition: Stable. Specimen: Necrotic tissue from the left buttock sent to pathology for examination and cultures.
[2016-09-23] MEDS: DILAUDID IV PRN ×4 (12:35→13:05)
--- NOTE | 2016-09-23 14:51 | Progress Note ---
Assessment and Plan Assessment and plan: Cellulitis right buttock. Continue IV Levaquin IV and Flagyl 500mg iv q8h. She is allergic to Vanco. Continue IV fluids. Consulted wound nurse and discussed with her. She recommended surgical consult. Discussed today with Dr. Rodriguez. He will take to OR for I and D for possible abscess. Diabetes mellitus type II. Fingerstick glucose before every meal and at bedtime Sepsis secondary to cellulitis possible abscess Leukocytosis secondary to sepsis. Hypokalemia. Potassium 3.1. Replace and recheck tomorrow Hyponatremia. iv fluids with Normal saline. DVT prophylaxis with Lovenox Full code status History Interval history: Patient is 46-year-old presented with right gluteal cellulitis, drainage from cellulitis, pain buttock Hospitalist Physical - Physical exam Narrative exam: Gen: not in acute distress HEENT: normocephalic,atraumatic Neck :supple, no JVD Lungs: clear to auscultation bilaterally, no crackles no wheezes Heart: S1 and S2 regular, no murmurs no gallops, Abdomen: soft nontender, nondistended, normal bowel sounds Extremities: no edema, no clubbing or cyanosis Neuro: Awake alert oriented x 3, no focal signs. Psych: Normal mood Skin: cellulitis,redness tender, right lower gluteal region - Constitutional Vitals: Temp Pulse Resp BP Pulse Ox 98.9 F 105 H 24 130/71 96 09/23/16 13:45 09/23/16 14:00 09/23/16 14:00 09/23/16 14:00 09/23/16 14:00 General appearance: Present: no acute distress Results - Labs CBC & Chem 7: 09/23/16 09:10 09/23/16 09:10 Labs: Laboratory Last Values WBC 20.7 K/mm3 (4.5-11.0) H 09/23/16 09:10 RBC 3.80 M/mm3 (3.65-5.03) 09/23/16 09:10 Hgb 10.7 gm/dl (10.1-14.3) 09/23/16 09:10 Hct 32.1 % (30.3-42.9) 09/23/16 09:10 MCV 84 fl (79-97) 09/23/16 09:10 MCH 28 pg (28-32) 09/23/16 09:10 MCHC 33 % (30-34) 09/23/16 09:10 RDW 13.5 % (13.2-15.2) 09/23/16 09:10 Plt Count 367 K/mm3 (140-440) 09/23/16 09:10 Add Manual Diff Complete 09/22/16 03:53 Total Counted 100 09/22/16 03:53 Seg Neuts % (Manual) 80.0 % (40.0-70.0) H 09/22/16 03:53 Band Neutrophils % 0 % 09/22/16 03:53 Lymphocytes % (Manual) 13.0 % (13.4-35.0) L 09/22/16 03:53 Reactive Lymphs % (Man) 1.0 % 09/22/16 03:53 Monocytes % (Manual) 4.0 % (0.0-7.3) 09/22/16 03:53 Eosinophils % (Manual) 1.0 % (0.0-4.3) 09/22/16 03:53 Basophils % (Manual) 0 % (0.0-1.8) 09/22/16 03:53 Metamyelocytes % 0 % 09/22/16 03:53 Myelocytes % 1.0 % 09/22/16 03:53 Promyelocytes % 0 % 09/22/16 03:53 Blast Cells % 0 % 09/22/16 03:53 Nucleated RBC % Not Reportable 09/22/16 03:53 Seg Neutrophils # Man 15.7 K/mm3 (1.8-7.7) H 09/22/16 03:53 Band Neutrophils # 0.0 K/mm3 09/22/16 03:53 Lymphocytes # (Manual) 2.5 K/mm3 (1.2-5.4) 09/22/16 03:53 Abs React Lymphs (Man) 0.2 K/mm3 09/22/16 03:53 Monocytes # (Manual) 0.8 K/mm3 (0.0-0.8) 09/22/16 03:53 Eosinophils # (Manual) 0.2 K/mm3 (0.0-0.4) 09/22/16 03:53 Basophils # (Manual) 0.0 K/mm3 (0.0-0.1) 09/22/16 03:53 Metamyelocytes # 0.0 K/mm3 09/22/16 03:53 Myelocytes # 0.2 K/mm3 09/22/16 03:53 Promyelocytes # 0.0 K/mm3 09/22/16 03:53 Blast Cells # 0.0 K/mm3 09/22/16 03:53 WBC Morphology Not Reportable 09/22/16 03:53 Hypersegmented Neuts Not Reportable 09/22/16 03:53 Hyposegmented Neuts Not Reportable 09/22/16 03:53 Hypogranular Neuts Not Reportable 09/22/16 03:53 Smudge Cells Not Reportable 09/22/16 03:53 Toxic Granulation Not Reportable 09/22/16 03:53 Toxic Vacuolation Not Reportable 09/22/16 03:53 Dohle Bodies Not Reportable 09/22/16 03:53 [place]-Huet Anomaly Not Reportable 09/22/16 03:53 Joel Rods Not Reportable 09/22/16 03:53 Platelet Estimate Appears normal 09/22/16 03:53 Clumped Platelets Not Reportable 09/22/16 03:53 Plt Clumps, EDTA Not Reportable 09/22/16 03:53 Large Platelets Not Reportable 09/22/16 03:53 Giant Platelets Not Reportable 09/22/16 03:53 Platelet Satelliting Not Reportable 09/22/16 03:53 Plt Morphology Comment Not Reportable 09/22/16 03:53 RBC Morphology Not Reportable 09/22/16 03:53 Dimorphic RBCs Not Reportable 09/22/16 03:53 Polychromasia Not Reportable 09/22/16 03:53 Hypochromasia Not Reportable 09/22/16 03:53 Poikilocytosis Not Reportable 09/22/16 03:53 Anisocytosis Few 09/22/16 03:53 Microcytosis Not Reportable 09/22/16 03:53 Macrocytosis Not Reportable 09/22/16 03:53 Spherocytes Not Reportable 09/22/16 03:53 Pappenheimer Bodies Not Reportable 09/22/16 03:53 Sickle Cells Not Reportable 09/22/16 03:53 Target Cells Not Reportable 09/22/16 03:53 Tear Drop Cells Not Reportable 09/22/16 03:53 Ovalocytes Not Reportable 09/22/16 03:53 Helmet Cells Not Reportable 09/22/16 03:53 [place] Bodies Not Reportable 09/22/16 03:53 [place] Rings Not Reportable 09/22/16 03:53 [place] Cells Not Reportable 09/22/16 03:53 Bite Cells Not Reportable 09/22/16 03:53 Crenated Cell Not Reportable 09/22/16 03:53 Elliptocytes Not Reportable 09/22/16 03:53 Acanthocytes (Spur) Not Reportable 09/22/16 03:53 Rouleaux Not Reportable 09/22/16 03:53 Hemoglobin C Crystals Not Reportable 09/22/16 03:53 Schistocytes Not Reportable 09/22/16 03:53 Malaria parasites Not Reportable 09/22/16 03:53 Prashant Bodies Not Reportable 09/22/16 03:53 Hem Pathologist Commnt No 09/22/16 03:53 VBG pH 7.454 (7.320-7.420) H 09/21/16 12:38 Sodium 135 mmol/L (137-145) L 09/23/16 09:10 Potassium 3.1 mmol/L (3.6-5.0) L 09/23/16 09:10 Chloride 95.5 mmol/L (98-107) L 09/23/16 09:10 Carbon Dioxide 20 mmol/L (22-30) L 09/23/16 09:10 Anion Gap 23 mmol/L 09/23/16 09:10 BUN 7 mg/dL (7-17) 09/23/16 09:10 Creatinine 0.6 mg/dL (0.7-1.2) L 09/23/16 09:10 Estimated GFR > 60 ml/min 09/23/16 09:10 BUN/Creatinine Ratio 11.66 % 09/23/16 09:10 Glucose 260 mg/dL (65-100) H 09/23/16 09:10 Hemoglobin A1c 14.3 % (4-6) H 09/23/16 06:20 Calcium 7.1 mg/dL (8.4-10.2) L 09/23/16 09:10 Total Bilirubin 0.3 mg/dL (0.1-1.2) 09/22/16 03:53 AST 10 units/L (5-40) 09/22/16 03:53 ALT 6 units/L (7-56) L 09/22/16 03:53 Alkaline Phosphatase 130 units/L (35-129) H 09/22/16 03:53 Total Protein 6.6 g/dL (6.3-8.2) 09/22/16 03:53 Albumin 2.6 g/dL (3.9-5) L 09/22/16 03:53 Albumin/Globulin Ratio 0.7 % 09/22/16 03:53 HCG, Qual Negative (Negative) 09/21/16 08:39
[2016-09-23] MEDS ORDERED: KCL 10MEQ/100ML 10 MEQ/100 ML BAG IV SCH (15:00)
[2016-09-23] MEDS: LEVAQUIN 750MG/150ML 750 MG/150 ML BAG IV SCH (15:44)
[2016-09-23 21:34] LABS: Anion Gap 22 mmol/L; Blood Urea Nitrogen 6 mg/dL (7-17); Calcium 6.5 mg/dL (8.4-10.2); Carbon Dioxide 20 mmol/L (22-30); Chloride 95.4 mmol/L (98-107); Glucose 208 mg/dL (65-100); Sodium 135 mmol/L (137-145)
[2016-09-23] MEDS: MOTRIN PO PRN (21:42)
[2016-09-23 22:03] LABS: Potassium 2.8 mmol/L (3.6-5.0)
[2016-09-23] MEDS: KCL 10MEQ/100ML 10 MEQ/100 ML BAG IV SCH (23:01)
[2016-09-23] MEDS: LOVENOX SUB-Q SCH (23:43)
[2016-09-24] MEDS: KCL 10MEQ/100ML 10 MEQ/100 ML BAG IV SCH ×2 (00:40→01:40)
[2016-09-24] MEDS ORDERED: MAGNESIUM SULFATE 2GM/50ML 2 GM/50 ML BAG IV ONE (04:17)
[2016-09-24] MEDS: FLAGYL 500 MG/100 ML 500 MG/100 ML BAG IV SCH ×3 (05:19→22:35)
[2016-09-24] MEDS: DOMEBORO PACKET TP SCH ×4 (06:48→21:38)
[2016-09-24 07:53] LABS: Hematocrit 30.8 % (30.3-42.9); Mean Corpuscular HGB Conc 32 % (30-34); Mean Corpuscular Hemoglobin 28 pg (28-32); Mean Corpuscular Volume 85 fl (79-97); Platelet Count 377 K/mm3 (140-440); Red Blood Count 3.61 M/mm3 (3.65-5.03); Red Cell Distribution Width 13.6 % (13.2-15.2)
[2016-09-24] MEDS: ZOFRAN IV PRN ×2 (07:56→20:20)
[2016-09-24] MEDS: PERCOCET 5/325 PO PRN ×3 (08:06→21:25)
[2016-09-24 08:14] LABS: Anion Gap 23 mmol/L; BUN/Creatinine Ratio 8.75; Blood Urea Nitrogen 7 mg/dL (7-17); Calcium 6.4 mg/dL (8.4-10.2); Carbon Dioxide 20 mmol/L (22-30); Chloride 96.3 mmol/L (98-107); Glucose 236 mg/dL (65-100); Potassium 3.3 mmol/L (3.6-5.0); Sodium 136 mmol/L (137-145)
--- NOTE | 2016-09-24 09:12 | Progress Note ---
Assessment and Plan IMP: Clinically better. Parsistent vomiting, Gastroparesis? PLAN: To start sitz bath today. Compazine IV. Labs in am. Subjective Date of service: 09/24/16 Patient Reports: Positive: feels better, vomiting (in spite of Zofran) Objective Vital Signs - 12hr 09/23/16 09/24/16 09/24/16 22:00 00:00 04:00 Temperature 98.4 F 98.1 F Pulse Rate [ 102 H From Monitor] Pulse Rate [ 105 H 98 H Right Radial] Respiratory 18 18 18 Rate Blood Pressure 151/82 140/77 [Right Arm] O2 Sat by Pulse 99 98 Oximetry 09/24/16 09/24/16 08:15 08:43 Temperature 98.2 F Pulse Rate [ 98 H From Monitor] Pulse Rate [ 98 H Right Radial] Respiratory 18 Rate Blood Pressure 133/71 [Right Arm] O2 Sat by Pulse 99 Oximetry - Integumentary other (dressings dry and clear.) - Labs 09/24/16 07:42 09/24/16 07:42 Diabetes panel 09/23/16 09/23/16 09/24/16 Range/Units 09:10 20:59 07:42 Sodium 135 L 135 L 136 L (137-145) mmol/L Potassium 3.1 L 2.8 L* 3.3 L (3.6-5.0) mmol/L Chloride 95.5 L 95.4 L 96.3 L (98-107) mmol/L Carbon Dioxide 20 L 20 L 20 L (22-30) mmol/L BUN 7 6 L 7 (7-17) mg/dL Creatinine 0.6 L 0.6 L 0.8 (0.7-1.2) mg/dL Glucose 260 H 208 H 236 H (65-100) mg/dL Calcium 7.1 L 6.5 L 6.4 L (8.4-10.2) mg/dL Calcium panel 09/23/16 09/23/16 09/24/16 Range/Units 09:10 20:59 07:42 Calcium 7.1 L 6.5 L 6.4 L (8.4-10.2) mg/dL Pituitary panel 09/23/16 09/23/16 09/24/16 Range/Units 09:10 20:59 07:42 Sodium 135 L 135 L 136 L (137-145) mmol/L Potassium 3.1 L 2.8 L* 3.3 L (3.6-5.0) mmol/L Chloride 95.5 L 95.4 L 96.3 L (98-107) mmol/L Carbon Dioxide 20 L 20 L 20 L (22-30) mmol/L BUN 7 6 L 7 (7-17) mg/dL Creatinine 0.6 L 0.6 L 0.8 (0.7-1.2) mg/dL Glucose 260 H 208 H 236 H (65-100) mg/dL Calcium 7.1 L 6.5 L 6.4 L (8.4-10.2) mg/dL Adrenal panel 09/23/16 09/23/16 09/24/16 Range/Units 09:10 20:59 07:42 Sodium 135 L 135 L 136 L (137-145) mmol/L Potassium 3.1 L 2.8 L* 3.3 L (3.6-5.0) mmol/L Chloride 95.5 L 95.4 L 96.3 L (98-107) mmol/L Carbon Dioxide 20 L 20 L 20 L (22-30) mmol/L BUN 7 6 L 7 (7-17) mg/dL Creatinine 0.6 L 0.6 L 0.8 (0.7-1.2) mg/dL Glucose 260 H 208 H 236 H (65-100) mg/dL Calcium 7.1 L 6.5 L 6.4 L (8.4-10.2) mg/dL
[2016-09-24] MEDS: PROTONIX PO SCH (10:01)
[2016-09-24] MEDS: HABITROL TD SCH (10:02)
[2016-09-24 10:14] LABS: Blastocytes % (Manual) 0 %; Diff Status Complete; RBC Morphology Normal; Toxic Vacuolation Few
--- NOTE | 2016-09-24 10:42 | Progress Note ---
Assessment and Plan Assessment and plan: Abscess right buttock, s/p incision and drainage. Continue IV Levaquin and Flagyl. She is allergic to Vanco. Continue IV fluids. Consulted wound nurse and discussed with her. She recommended surgical consult. I and D done by Dr. Rodriguez. Diabetes mellitus type II. Fingerstick glucose before every meal and at bedtime Sepsis secondary to abscess right buttock/perneal rgion. continue Levaquin and Flagyl Leukocytosis secondary to sepsis. Hypokalemia. Potassium 3.3 today. Replace and recheck tomorrow Hyponatremia. iv fluids with Normal saline. DVT prophylaxis with Lovenox Full code status History Interval history: Patient is 46-year-old presented with right buttock abscess and cellulitis, s/p I and D, vomiting Less pain on buttock Hospitalist Physical - Physical exam Narrative exam: Gen: not in acute distress HEENT: normocephalic,atraumatic Neck :supple, no JVD Lungs: clear to auscultation bilaterally, no crackles no wheezes Heart: S1 and S2 regular, no murmurs no gallops, Abdomen: soft nontender, nondistended, normal bowel sounds Extremities: no edema, no clubbing or cyanosis Neuro: Awake alert oriented x 3, no focal signs. Psych: Normal mood Skin: dressing over buttock,perineal region. - Constitutional Vitals: Temp Pulse Resp BP Pulse Ox 98.2 F 98 H 18 133/71 99 09/24/16 08:15 09/24/16 08:43 09/24/16 08:15 09/24/16 08:15 09/24/16 08:15 General appearance: Present: no acute distress Results - Labs CBC & Chem 7: 09/24/16 07:42 09/24/16 07:42 Labs: Laboratory Last Values WBC 23.0 K/mm3 (4.5-11.0) H 09/24/16 07:42 RBC 3.61 M/mm3 (3.65-5.03) L 09/24/16 07:42 Hgb 10.0 gm/dl (10.1-14.3) L 09/24/16 07:42 Hct 30.8 % (30.3-42.9) 09/24/16 07:42 MCV 85 fl (79-97) 09/24/16 07:42 MCH 28 pg (28-32) 09/24/16 07:42 MCHC 32 % (30-34) 09/24/16 07:42 RDW 13.6 % (13.2-15.2) 09/24/16 07:42 Plt Count 377 K/mm3 (140-440) 09/24/16 07:42 Add Manual Diff Complete 09/24/16 07:42 Total Counted 100 09/24/16 07:42 Seg Neuts % (Manual) 84.0 % (40.0-70.0) H 09/24/16 07:42 Band Neutrophils % 7.0 % 09/24/16 07:42 Lymphocytes % (Manual) 5.0 % (13.4-35.0) L 09/24/16 07:42 Reactive Lymphs % (Man) 0 % 09/24/16 07:42 Monocytes % (Manual) 4.0 % (0.0-7.3) 09/24/16 07:42 Eosinophils % (Manual) 1.0 % (0.0-4.3) 09/22/16 03:53 Basophils % (Manual) 0 % (0.0-1.8) 09/22/16 03:53 Metamyelocytes % 0 % 09/24/16 07:42 Myelocytes % 0 % 09/24/16 07:42 Promyelocytes % 0 % 09/24/16 07:42 Blast Cells % 0 % 09/24/16 07:42 Nucleated RBC % Not Reportable 09/24/16 07:42 Seg Neutrophils # Man 19.3 K/mm3 (1.8-7.7) H 09/24/16 07:42 Band Neutrophils # 1.6 K/mm3 09/24/16 07:42 Lymphocytes # (Manual) 1.2 K/mm3 (1.2-5.4) 09/24/16 07:42 Abs React Lymphs (Man) 0.0 K/mm3 09/24/16 07:42 Monocytes # (Manual) 0.9 K/mm3 (0.0-0.8) H 09/24/16 07:42 Eosinophils # (Manual) 0.0 K/mm3 (0.0-0.4) 09/24/16 07:42 Basophils # (Manual) 0.0 K/mm3 (0.0-0.1) 09/24/16 07:42 Metamyelocytes # 0.0 K/mm3 09/24/16 07:42 Myelocytes # 0.0 K/mm3 09/24/16 07:42 Promyelocytes # 0.0 K/mm3 09/24/16 07:42 Blast Cells # 0.0 K/mm3 09/24/16 07:42 WBC Morphology Not Reportable 09/24/16 07:42 Hypersegmented Neuts Not Reportable 09/24/16 07:42 Hyposegmented Neuts Not Reportable 09/24/16 07:42 Hypogranular Neuts Not Reportable 09/24/16 07:42 Smudge Cells Not Reportable 09/24/16 07:42 Toxic Granulation Not Reportable 09/24/16 07:42 Toxic Vacuolation Few 09/24/16 07:42 Dohle Bodies Not Reportable 09/24/16 07:42 Pelger-Huet Anomaly Not Reportable 09/24/16 07:42 Joel Rods Not Reportable 09/24/16 07:42 Platelet Estimate Appears normal 09/24/16 07:42 Clumped Platelets Not Reportable 09/24/16 07:42 Plt Clumps, EDTA Not Reportable 09/24/16 07:42 Large Platelets Not Reportable 09/24/16 07:42 Giant Platelets Not Reportable 09/24/16 07:42 Platelet Satelliting Not Reportable 09/24/16 07:42 Plt Morphology Comment Not Reportable 09/24/16 07:42 RBC Morphology Normal 09/24/16 07:42 Dimorphic RBCs Not Reportable 09/24/16 07:42 Polychromasia Not Reportable 09/24/16 07:42 Hypochromasia Not Reportable 09/24/16 07:42 Poikilocytosis Not Reportable 09/24/16 07:42 Anisocytosis Not Reportable 09/24/16 07:42 Microcytosis Not Reportable 09/24/16 07:42 Macrocytosis Not Reportable 09/24/16 07:42 Spherocytes Not Reportable 09/24/16 07:42 Pappenheimer Bodies Not Reportable 09/24/16 07:42 Sickle Cells Not Reportable 09/24/16 07:42 Target Cells Not Reportable 09/24/16 07:42 Tear Drop Cells Not Reportable 09/24/16 07:42 Ovalocytes Not Reportable 09/24/16 07:42 Helmet Cells Not Reportable 09/24/16 07:42 [place] Bodies Not Reportable 09/24/16 07:42 [place] Rings Not Reportable 09/24/16 07:42 [place] Cells Not Reportable 09/24/16 07:42 Bite Cells Not Reportable 09/24/16 07:42 Crenated Cell Not Reportable 09/24/16 07:42 Elliptocytes Not Reportable 09/24/16 07:42 Acanthocytes (Spur) Not Reportable 09/24/16 07:42 Rouleaux Not Reportable 09/24/16 07:42 Hemoglobin C Crystals Not Reportable 09/24/16 07:42 Schistocytes Not Reportable 09/24/16 07:42 Malaria parasites Not Reportable 09/24/16 07:42 Prashant Bodies Not Reportable 09/24/16 07:42 Hem Pathologist Commnt No 09/24/16 07:42 VBG pH 7.454 (7.320-7.420) H 09/21/16 12:38 Sodium 136 mmol/L (137-145) L 09/24/16 07:42 Potassium 3.3 mmol/L (3.6-5.0) L 09/24/16 07:42 Chloride 96.3 mmol/L (98-107) L 09/24/16 07:42 Carbon Dioxide 20 mmol/L (22-30) L 09/24/16 07:42 Anion Gap 23 mmol/L 09/24/16 07:42 BUN 7 mg/dL (7-17) 09/24/16 07:42 Creatinine 0.8 mg/dL (0.7-1.2) 09/24/16 07:42 Estimated GFR > 60 ml/min 09/24/16 07:42 BUN/Creatinine Ratio 8.75 % 09/24/16 07:42 Glucose 236 mg/dL (65-100) H 09/24/16 07:42 Hemoglobin A1c 14.3 % (4-6) H 09/23/16 06:20 Calcium 6.4 mg/dL (8.4-10.2) L 09/24/16 07:42 Magnesium 0.8 mg/dL (1.7-2.3) L* 09/23/16 00:06 Total Bilirubin 0.3 mg/dL (0.1-1.2) 09/22/16 03:53 AST 10 units/L (5-40) 09/22/16 03:53 ALT 6 units/L (7-56) L 09/22/16 03:53 Alkaline Phosphatase 130 units/L (35-129) H 09/22/16 03:53 Total Protein 6.6 g/dL (6.3-8.2) 09/22/16 03:53 Albumin 2.6 g/dL (3.9-5) L 09/22/16 03:53 Albumin/Globulin Ratio 0.7 % 09/22/16 03:53 HCG, Qual Negative (Negative) 09/21/16 08:39
[2016-09-24] MEDS: PAXIL PO SCH (11:02)
--- NOTE | 2016-09-24 11:24 | Progress Note ---
Subjective Date of service: 09/24/16 Interval history: No anesthetic related complaints. Patient is awake and alert. Objective - Constitutional Vitals: Vital Signs - 12hr 09/24/16 09/24/16 09/24/16 00:00 04:00 08:15 Temperature 98.4 F 98.1 F 98.2 F Pulse Rate [ From Monitor] Pulse Rate [ 105 H 98 H 98 H Right Radial] Respiratory 18 18 18 Rate Blood Pressure 151/82 140/77 133/71 [Right Arm] O2 Sat by Pulse 99 98 99 Oximetry 09/24/16 08:43 Temperature Pulse Rate [ 98 H From Monitor] Pulse Rate [ Right Radial] Respiratory Rate Blood Pressure [Right Arm] O2 Sat by Pulse Oximetry - Labs CBC & Chem 7: 09/24/16 07:42 09/24/16 07:42 Labs: Abnormal lab results 09/23/16 09/23/16 09/24/16 Range/Units 00:06 20:59 07:42 WBC 23.0 H (4.5-11.0) K/mm3 RBC 3.61 L (3.65-5.03) M/mm3 Hgb 10.0 L (10.1-14.3) gm/dl Seg Neuts % (Manual) 84.0 H (40.0-70.0) % Lymphocytes % (Manual) 5.0 L (13.4-35.0) % Seg Neutrophils # Man 19.3 H (1.8-7.7) K/mm3 Monocytes # (Manual) 0.9 H (0.0-0.8) K/mm3 Sodium 135 L (137-145) mmol/L Potassium 2.8 L* (3.6-5.0) mmol/L Chloride 95.4 L (98-107) mmol/L Carbon Dioxide 20 L (22-30) mmol/L BUN 6 L (7-17) mg/dL Creatinine 0.6 L (0.7-1.2) mg/dL Glucose 208 H (65-100) mg/dL Calcium 6.5 L (8.4-10.2) mg/dL Magnesium 0.8 L* (1.7-2.3) mg/dL 09/24/16 Range/Units 07:42 WBC (4.5-11.0) K/mm3 RBC (3.65-5.03) M/mm3 Hgb (10.1-14.3) gm/dl Seg Neuts % (Manual) (40.0-70.0) % Lymphocytes % (Manual) (13.4-35.0) % Seg Neutrophils # Man (1.8-7.7) K/mm3 Monocytes # (Manual) (0.0-0.8) K/mm3 Sodium 136 L (137-145) mmol/L Potassium 3.3 L (3.6-5.0) mmol/L Chloride 96.3 L (98-107) mmol/L Carbon Dioxide 20 L (22-30) mmol/L BUN (7-17) mg/dL Creatinine (0.7-1.2) mg/dL Glucose 236 H (65-100) mg/dL Calcium 6.4 L (8.4-10.2) mg/dL Magnesium (1.7-2.3) mg/dL
[2016-09-24] MEDS: COMPAZINE IV PRN (14:10)
[2016-09-24] MEDS: LEVAQUIN 750MG/150ML 750 MG/150 ML BAG IV SCH (14:30)
[2016-09-24 17:05] LABS: Anion Gap 22 mmol/L; Blood Urea Nitrogen 6 mg/dL (7-17); Calcium 6.5 mg/dL (8.4-10.2); Carbon Dioxide 20 mmol/L (22-30); Glucose 193 mg/dL (65-100); Sodium 135 mmol/L (137-145)
[2016-09-24] MEDS ORDERED: KCL 30 MEQ in NACL 0.9% 1000 ML 1,000 ML IV SCH (19:00)
[2016-09-24] MEDS: LOVENOX SUB-Q SCH (21:25)
[2016-09-24] MEDS ORDERED: XANAX PO PRN (21:35)
[2016-09-24] MEDS ORDERED: XANAX PO ONE (22:00)
[2016-09-24] MEDS ORDERED: MAGNESIUM SULFATE 3 GM in NACL 0.9% 100 ML IV ONE (22:36)
[2016-09-25 04:05] LABS: Hemoglobin 9.5 gm/dl (10.1-14.3); Mean Corpuscular HGB Conc 33 % (30-34); Mean Corpuscular Hemoglobin 28 pg (28-32); Mean Corpuscular Volume 84 fl (79-97); Platelet Count 434 K/mm3 (140-440); Red Blood Count 3.44 M/mm3 (3.65-5.03); Red Cell Distribution Width 13.5 % (13.2-15.2)
[2016-09-25 04:12] LABS: White Blood Count 20.9 K/mm3 (4.5-11.0)
[2016-09-25] MEDS: PERCOCET 5/325 PO PRN ×3 (04:15→22:20)
[2016-09-25] MEDS: COMPAZINE IV PRN (04:15)
[2016-09-25 04:29] LABS: Anion Gap 22 mmol/L; BUN/Creatinine Ratio 6.66; Blood Urea Nitrogen 4 mg/dL (7-17); Calcium 6.6 mg/dL (8.4-10.2); Carbon Dioxide 22 mmol/L (22-30); Chloride 98.1 mmol/L (98-107); Glucose 204 mg/dL (65-100); Potassium 3.6 mmol/L (3.6-5.0); Sodium 138 mmol/L (137-145)
[2016-09-25] MEDS: FLAGYL 500 MG/100 ML 500 MG/100 ML BAG IV SCH ×3 (05:18→22:22)
[2016-09-25 05:39] LABS: Anisocytosis 1+; Basophils % (Manual) 0 % (0.0-1.8); Blastocytes % (Manual) 0 %; Diff Status Complete; Hypochromasia Rare; Platelet Estimate Appears Increased
[2016-09-25] MEDS: DOMEBORO PACKET TP SCH (07:58)
[2016-09-25] MEDS: MOTRIN PO PRN (08:53)
--- NOTE | 2016-09-25 10:01 | Progress Note ---
Assessment and Plan Assessment and plan: Abscess left buttock, s/p incision and drainage. Continue IV Levaquin and Flagyl. She is allergic to Vanco. Continue IV fluids. Wound Nurse following. Incision and drainage of abscess done by Dr. Rodriguez, Surgeon. Diabetes mellitus type II. Fingerstick glucose before every meal and at bedtime Sepsis secondary to abscess left buttock/perineal region. continue Levaquin and Flagyl Leukocytosis secondary to sepsis. Hypokalemia. Improving. Potassium 3.6 today. Give Potassium containing iv fluid Hypomagnesemia. Replace iv and repeat. Hyponatremia. iv fluids with Normal saline. DVT prophylaxis with Lovenox subcut Full code status History Interval history: Patient is 46-year-old presented with leftight buttock abscess and cellulitis, s/p I and D, nausea and vomiting Less pain on buttock Hospitalist Physical - Physical exam Narrative exam: Gen: not in acute distress HEENT: normocephalic,atraumatic Neck :supple, no JVD Lungs: clear to auscultation bilaterally, no crackles no wheezes Heart: S1 and S2 regular, no murmurs, rubs or gallops, Abdomen: soft non-tender, non-distended, normal bowel sounds Extremities: no edema, no clubbing or cyanosis Neuro: Awake alert oriented x 3, no focal signs. Psych: Normal mood Skin: dressing over left buttock,perineal region. - Constitutional Vitals: Temp Pulse Resp BP Pulse Ox 98.3 F 103 H 18 140/78 99 09/25/16 08:00 09/25/16 08:00 09/25/16 08:00 09/25/16 08:00 09/25/16 08:00 General appearance: Present: no acute distress Results - Labs CBC & Chem 7: 09/25/16 03:54 09/25/16 15:55 Labs: Laboratory Last Values WBC 20.9 K/mm3 (4.5-11.0) H 09/25/16 03:54 RBC 3.44 M/mm3 (3.65-5.03) L 09/25/16 03:54 Hgb 9.5 gm/dl (10.1-14.3) L 09/25/16 03:54 Hct 29.0 % (30.3-42.9) L 09/25/16 03:54 MCV 84 fl (79-97) 09/25/16 03:54 MCH 28 pg (28-32) 09/25/16 03:54 MCHC 33 % (30-34) 09/25/16 03:54 RDW 13.5 % (13.2-15.2) 09/25/16 03:54 Plt Count 434 K/mm3 (140-440) 09/25/16 03:54 Add Manual Diff Complete 09/25/16 03:54 Total Counted 100 09/25/16 03:54 Seg Neuts % (Manual) 93.0 % (40.0-70.0) H 09/25/16 03:54 Band Neutrophils % 0 % 09/25/16 03:54 Lymphocytes % (Manual) 5.0 % (13.4-35.0) L 09/25/16 03:54 Reactive Lymphs % (Man) 0 % 09/25/16 03:54 Monocytes % (Manual) 1.0 % (0.0-7.3) 09/25/16 03:54 Eosinophils % (Manual) 1.0 % (0.0-4.3) 09/25/16 03:54 Basophils % (Manual) 0 % (0.0-1.8) 09/25/16 03:54 Metamyelocytes % 0 % 09/25/16 03:54 Myelocytes % 0 % 09/25/16 03:54 Promyelocytes % 0 % 09/25/16 03:54 Blast Cells % 0 % 09/25/16 03:54 Nucleated RBC % Not Reportable 09/25/16 03:54 Seg Neutrophils # Man 19.4 K/mm3 (1.8-7.7) H 09/25/16 03:54 Band Neutrophils # 0.0 K/mm3 09/25/16 03:54 Lymphocytes # (Manual) 1.0 K/mm3 (1.2-5.4) L 09/25/16 03:54 Abs React Lymphs (Man) 0.0 K/mm3 09/25/16 03:54 Monocytes # (Manual) 0.2 K/mm3 (0.0-0.8) 09/25/16 03:54 Eosinophils # (Manual) 0.2 K/mm3 (0.0-0.4) 09/25/16 03:54 Basophils # (Manual) 0.0 K/mm3 (0.0-0.1) 09/25/16 03:54 Metamyelocytes # 0.0 K/mm3 09/25/16 03:54 Myelocytes # 0.0 K/mm3 09/25/16 03:54 Promyelocytes # 0.0 K/mm3 09/25/16 03:54 Blast Cells # 0.0 K/mm3 09/25/16 03:54 WBC Morphology Not Reportable 09/25/16 03:54 Hypersegmented Neuts Not Reportable 09/25/16 03:54 Hyposegmented Neuts Not Reportable 09/25/16 03:54 Hypogranular Neuts Not Reportable 09/25/16 03:54 Smudge Cells Not Reportable 09/25/16 03:54 Toxic Granulation Not Reportable 09/25/16 03:54 Toxic Vacuolation Not Reportable 09/25/16 03:54 Dohle Bodies Not Reportable 09/25/16 03:54 Pelger-Huet Anomaly Not Reportable 09/25/16 03:54 Joel Rods Not Reportable 09/25/16 03:54 Platelet Estimate Appears increased 09/25/16 03:54 Clumped Platelets Not Reportable 09/25/16 03:54 Plt Clumps, EDTA Not Reportable 09/25/16 03:54 Large Platelets Not Reportable 09/25/16 03:54 Giant Platelets Not Reportable 09/25/16 03:54 Platelet Satelliting Not Reportable 09/25/16 03:54 Plt Morphology Comment Not Reportable 09/25/16 03:54 RBC Morphology Not Reportable 09/25/16 03:54 Dimorphic RBCs Not Reportable 09/25/16 03:54 Polychromasia Not Reportable 09/25/16 03:54 Hypochromasia Rare 09/25/16 03:54 Poikilocytosis Not Reportable 09/25/16 03:54 Anisocytosis 1+ 09/25/16 03:54 Microcytosis Not Reportable 09/25/16 03:54 Macrocytosis Not Reportable 09/25/16 03:54 Spherocytes Not Reportable 09/25/16 03:54 Pappenheimer Bodies Not Reportable 09/25/16 03:54 Sickle Cells Not Reportable 09/25/16 03:54 Target Cells Not Reportable 09/25/16 03:54 Tear Drop Cells Not Reportable 09/25/16 03:54 Ovalocytes Not Reportable 09/25/16 03:54 Helmet Cells Not Reportable 09/25/16 03:54 [place] Bodies Not Reportable 09/25/16 03:54 [place] Rings Not Reportable 09/25/16 03:54 [place] Cells Not Reportable 09/25/16 03:54 Bite Cells Not Reportable 09/25/16 03:54 Crenated Cell Not Reportable 09/25/16 03:54 Elliptocytes Not Reportable 09/25/16 03:54 Acanthocytes (Spur) Not Reportable 09/25/16 03:54 Rouleaux Not Reportable 09/25/16 03:54 Hemoglobin C Crystals Not Reportable 09/25/16 03:54 Schistocytes Not Reportable 09/25/16 03:54 Malaria parasites Not Reportable 09/25/16 03:54 Prashant Bodies Not Reportable 09/25/16 03:54 Hem Pathologist Commnt No 09/25/16 03:54 VBG pH 7.454 (7.320-7.420) H 09/21/16 12:38 Sodium 138 mmol/L (137-145) 09/25/16 03:54 Potassium 3.6 mmol/L (3.6-5.0) 09/25/16 03:54 Chloride 98.1 mmol/L (98-107) 09/25/16 03:54 Carbon Dioxide 22 mmol/L (22-30) 09/25/16 03:54 Anion Gap 22 mmol/L 09/25/16 03:54 BUN 4 mg/dL (7-17) L 09/25/16 03:54 Creatinine 0.6 mg/dL (0.7-1.2) L 09/25/16 03:54 Estimated GFR > 60 ml/min 09/25/16 03:54 BUN/Creatinine Ratio 6.66 % 09/25/16 03:54 Glucose 204 mg/dL (65-100) H 09/25/16 03:54 Hemoglobin A1c 14.3 % (4-6) H 09/23/16 06:20 Calcium 6.6 mg/dL (8.4-10.2) L 09/25/16 03:54 Magnesium 1.2 mg/dL (1.7-2.3) L 09/24/16 19:15 Total Bilirubin 0.3 mg/dL (0.1-1.2) 09/22/16 03:53 AST 10 units/L (5-40) 09/22/16 03:53 ALT 6 units/L (7-56) L 09/22/16 03:53 Alkaline Phosphatase 130 units/L (35-129) H 09/22/16 03:53 Total Protein 6.6 g/dL (6.3-8.2) 09/22/16 03:53 Albumin 2.6 g/dL (3.9-5) L 09/22/16 03:53 Albumin/Globulin Ratio 0.7 % 09/22/16 03:53 HCG, Qual Negative (Negative) 09/21/16 08:39
--- NOTE | 2016-09-25 10:18 | Progress Note ---
Assessment and Plan IMP: Clinically improved. PLAN: Wound nurse to change dressings and packing. Subjective Date of service: 09/25/16 Patient Reports: Positive: no new complaints, feels better, voiding w/o difficulty Objective Vital Signs - 12hr 09/25/16 09/25/16 09/25/16 02:02 04:55 08:00 Temperature 98.2 F 98.3 F Pulse Rate [ 102 H 103 H Right Radial] Respiratory 18 18 Rate Blood Pressure 134/80 140/78 [Right Arm] O2 Sat by Pulse 100 99 Oximetry - Integumentary other (dressings in placr, dry and clear) - Labs 09/25/16 03:54 09/25/16 03:54 Diabetes panel 09/24/16 09/25/16 Range/Units 16:33 03:54 Sodium 135 L 138 (137-145) mmol/L Potassium 3.0 L 3.6 (3.6-5.0) mmol/L Chloride 96.0 L 98.1 (98-107) mmol/L Carbon Dioxide 20 L 22 (22-30) mmol/L BUN 6 L 4 L (7-17) mg/dL Creatinine 0.6 L 0.6 L (0.7-1.2) mg/dL Glucose 193 H 204 H (65-100) mg/dL Calcium 6.5 L 6.6 L (8.4-10.2) mg/dL Calcium panel 09/24/16 09/25/16 Range/Units 16:33 03:54 Calcium 6.5 L 6.6 L (8.4-10.2) mg/dL Pituitary panel 09/24/16 09/25/16 Range/Units 16:33 03:54 Sodium 135 L 138 (137-145) mmol/L Potassium 3.0 L 3.6 (3.6-5.0) mmol/L Chloride 96.0 L 98.1 (98-107) mmol/L Carbon Dioxide 20 L 22 (22-30) mmol/L BUN 6 L 4 L (7-17) mg/dL Creatinine 0.6 L 0.6 L (0.7-1.2) mg/dL Glucose 193 H 204 H (65-100) mg/dL Calcium 6.5 L 6.6 L (8.4-10.2) mg/dL Adrenal panel 09/24/16 09/25/16 Range/Units 16:33 03:54 Sodium 135 L 138 (137-145) mmol/L Potassium 3.0 L 3.6 (3.6-5.0) mmol/L Chloride 96.0 L 98.1 (98-107) mmol/L Carbon Dioxide 20 L 22 (22-30) mmol/L BUN 6 L 4 L (7-17) mg/dL Creatinine 0.6 L 0.6 L (0.7-1.2) mg/dL Glucose 193 H 204 H (65-100) mg/dL Calcium 6.5 L 6.6 L (8.4-10.2) mg/dL
[2016-09-25] MEDS: PROTONIX PO SCH (10:32)
[2016-09-25] MEDS: PAXIL PO SCH (10:32)
[2016-09-25] MEDS: HABITROL TD SCH (10:34)
[2016-09-25] MEDS ORDERED: NACL 0.9% 1000 ML 1,000 ML ONE (10:34)
[2016-09-25] MEDS ORDERED: MORPHINE IV ONE (14:00)
[2016-09-25] MEDS ORDERED: MORPHINE ONE (16:31)
[2016-09-25 16:35] LABS: Anion Gap 19 mmol/L; Blood Urea Nitrogen 4 mg/dL (7-17); Calcium 6.5 mg/dL (8.4-10.2); Carbon Dioxide 22 mmol/L (22-30); Glucose 142 mg/dL (65-100); Magnesium 1.6 mg/dL (1.7-2.3); Potassium 3.3 mmol/L (3.6-5.0); Sodium 139 mmol/L (137-145)
[2016-09-25] MEDS ORDERED: D50W (25GM) IV PRN (18:49)
[2016-09-25] MEDS: ZOFRAN IV PRN (20:37)
[2016-09-25] MEDS ORDERED: NS/KCL 20MEQ 20 MEQ/1,000 ML BAG IV SCH (21:00)
[2016-09-25] MEDS ORDERED: MAGNESIUM SULFATE 3 GM in NACL 0.9% 100 ML IV ONE (21:13)
[2016-09-25] MEDS: NOVOLOG SUB-Q SCH (22:00)
[2016-09-25] MEDS: LOVENOX SUB-Q SCH (22:23)
[2016-09-26] MEDS: ZOFRAN IV PRN ×2 (01:31→06:22)
[2016-09-26] MEDS: PERCOCET 5/325 PO PRN ×2 (05:49→10:30)
[2016-09-26] MEDS: FLAGYL 500 MG/100 ML 500 MG/100 ML BAG IV SCH ×2 (05:49→15:05)
[2016-09-26] MEDS: NOVOLOG SUB-Q SCH ×2 (07:03→12:09)
[2016-09-26 07:56] LABS: Hematocrit 30.7 % (30.3-42.9); Hemoglobin 9.8 gm/dl (10.1-14.3); Mean Corpuscular HGB Conc 32 % (30-34); Mean Corpuscular Hemoglobin 28 pg (28-32); Mean Corpuscular Volume 87 fl (79-97); Platelet Count 469 K/mm3 (140-440); Red Blood Count 3.54 M/mm3 (3.65-5.03); Red Cell Distribution Width 13.8 % (13.2-15.2); White Blood Count 19.7 K/mm3 (4.5-11.0)
[2016-09-26 08:25] LABS: Anion Gap 20 mmol/L; Blood Urea Nitrogen 2 mg/dL (7-17); Calcium 6.5 mg/dL (8.4-10.2); Carbon Dioxide 21 mmol/L (22-30); Chloride 102.1 mmol/L (98-107); Glucose 146 mg/dL (65-100); Magnesium 1.8 mg/dL (1.7-2.3); Potassium 3.3 mmol/L (3.6-5.0); Sodium 140 mmol/L (137-145)
[2016-09-26] MEDS: HABITROL TD SCH (10:04)
[2016-09-26] MEDS: PROTONIX PO SCH (10:05)
[2016-09-26] MEDS: PAXIL PO SCH (10:05)
--- NOTE | 2016-09-26 13:06 | Progress Note ---
Assessment and Plan IMP: Feeling better fter debridement of left buttock. PLAN: Home per hospitalist on home health care for wound management. Subjective Date of service: 09/26/16 Patient Reports: Positive: no new complaints, feels better Objective Vital Signs - 12hr 09/26/16 07:00 Temperature 98.5 F Pulse Rate [ 100 H Right Radial] Respiratory 16 Rate Blood Pressure 134/78 [Right Arm] O2 Sat by Pulse 98 Oximetry - Integumentary other (Packing removed. Wounds look clear. Bridge of skin between incisions looks clear and viable.) - Labs 09/26/16 07:28 09/26/16 07:28 Diabetes panel 09/25/16 09/26/16 Range/Units 15:55 07:28 Sodium 139 140 (137-145) mmol/L Potassium 3.3 L 3.3 L (3.6-5.0) mmol/L Chloride 101.0 102.1 (98-107) mmol/L Carbon Dioxide 22 21 L (22-30) mmol/L BUN 4 L 2 L (7-17) mg/dL Creatinine 0.5 L 0.4 L (0.7-1.2) mg/dL Glucose 142 H 146 H (65-100) mg/dL Calcium 6.5 L 6.5 L (8.4-10.2) mg/dL Calcium panel 09/25/16 09/26/16 Range/Units 15:55 07:28 Calcium 6.5 L 6.5 L (8.4-10.2) mg/dL Pituitary panel 09/25/16 09/26/16 Range/Units 15:55 07:28 Sodium 139 140 (137-145) mmol/L Potassium 3.3 L 3.3 L (3.6-5.0) mmol/L Chloride 101.0 102.1 (98-107) mmol/L Carbon Dioxide 22 21 L (22-30) mmol/L BUN 4 L 2 L (7-17) mg/dL Creatinine 0.5 L 0.4 L (0.7-1.2) mg/dL Glucose 142 H 146 H (65-100) mg/dL Calcium 6.5 L 6.5 L (8.4-10.2) mg/dL Adrenal panel 09/25/16 09/26/16 Range/Units 15:55 07:28 Sodium 139 140 (137-145) mmol/L Potassium 3.3 L 3.3 L (3.6-5.0) mmol/L Chloride 101.0 102.1 (98-107) mmol/L Carbon Dioxide 22 21 L (22-30) mmol/L BUN 4 L 2 L (7-17) mg/dL Creatinine 0.5 L 0.4 L (0.7-1.2) mg/dL Glucose 142 H 146 H (65-100) mg/dL Calcium 6.5 L 6.5 L (8.4-10.2) mg/dL
--- NOTE | 2016-09-26 14:11 | Discharge Summary ---
Providers - Providers Date of Admission: 09/21/16 13:50 Date of discharge: 09/26/16 Attending physician: RADHA WHYTE MD 09/22/16 14:41 Consult to Wound/ET Nurse [CONS] Routine Reason For Exam: wound eval 09/22/16 16:52 Consult to Physician [CONS] Routine Consulting Provider: JIN RIVAS Reason For Exam: cellulitis with drainage gluteal region Place consult to:: Dr. Rivas Notified:: answering service Phone number called:: Was contact made?: Yes If yes, spoke with:: roman Time called:: 17:09/25/16 10:29 Consult to Dietitian/Nutrition [CONS] Routine Physician Instructions: Reason For Exam: Postop surgical Reason for Consult: Poor oral intake Primary care physician: SAFETY AIDE Hospitalization Reason for admission: left gluteal abscess Condition: Fair Hospital course: The patient is a 46-year-old female presenting with a chief complaint of buttocks abscess. Patient states for the past week she is "felt miserable." Patient states her symptoms include body aches, subjective fever and chills. Patient states the nights prior to admission she developed nausea vomiting. Patient states approximately one week ago she noticed a "cyst" on her left buttocks that has been draining "red pus." The patient states she has had similar episodes in the past she has same feeling. The patient on admission gives her pain a score of 8-9/10 to us and by surgery and went for incision and drainage and was started on IV Levaquin and Flagyl. Patient was allergic to vancomycin. She did have persistent leukocytosis although no fever. She did have hypokalemia which was replaced. Today the patient verbalized that she wants to leave the hospital I did proceed with her to stay one more day so we can at least identify the bacteria organism that is causing this abscess the patient refused. This point was sending her on Flagyl and doxycycline with extensive advice to the patient that we do not know accurate bacteria that would treat this point. She is to follow with the surgeon and her primary care physician whether final cultures come be reviewed and antibiotics changed as needed. The patient verbalized understanding and again she understands that she is leaving AGAINST MEDICAL ADVICE as at this point I do not know what activity is causing this infection. We did also advice about the control of her blood sugar. Case management is working to see if we can get home health to her home to help with the packing and dressing again the patient refused to stay for this. Discharge diagnosis Sepsis secondary to abscess left buttock/perineal region Leukocytosis secondary to sepsis. Hypokalemia. Hypomagnesemia. Diabetes mellitus type II. Hyponatremia. Disposition: LEFT AGAINST MEDICAL ADVICE Time spent for discharge: 35 mins Core Measure Documentation - Palliative Care Palliative Care/ Comfort Measures: Not Applicable - Core Measures Any of the following diagnoses?: none - VTE Discharge Requirements Deep Vein Thrombosis/Pulmonary Embolism Present on Admission: No Exam - Physical Exam Narrative exam: VITAL SIGNS: Reviewed. GENERAL: The patient appeared well nourished and normally developed. Vital signs as documented. HEAD: No signs of head trauma. EYES: Pupils are equal. Extraocular motions intact. EARS: Hearing grossly intact. MOUTH: Oropharynx is normal. NECK: No adenopathy, no JVD. CHEST: Chest with clear breath sounds bilaterally. No wheezes, rales, or rhonchi. CARDIAC: Regular rate and rhythm. S1 and S2, without murmurs, gallops, or rubs. VASCULAR: No Edema. Peripheral pulses normal and equal in all extremities. ABDOMEN: Soft, without detectable tenderness. No sign of distention. No rebound or guarding, and no masses palpated. Bowel Sounds normal. MUSCULOSKELETAL: Good range of motion of all major joints. Extremities without clubbing, cyanosis or edema. NEUROLOGIC EXAM: Alert and oriented x 3. No focal sensory or strength deficits. Speech normal. Follows commands. PSYCHIATRIC: Mood normal. SKIN: Left gluteal with mild induration placking is in place - Constitutional Vitals: Temp Pulse Resp BP Pulse Ox 98.5 F 100 H 16 134/78 98 09/26/16 07:00 09/26/16 07:00 09/26/16 07:00 09/26/16 07:00 09/26/16 07:00 Plan Activity: advance as tolerated, fall precautions Diet: diabetic Wound: per wound nurse instructions Special Instructions: home health RN Additional Instructions: Must follow with Primary care doctor and surgeon to follow cultures and address wound. Follow up with: CARON NOLASCO MD [Primary Care Provider] - 3-5 Days JIN RIVAS MD [Staff Physician] - 7 Days Prescriptions: Bacillus Coagulans [Probiotic] 1 each PO BID #30 capsule. Clindamycin [Clindamycin CAP] 300 mg PO Q8H #20 cap Doxycycline [Vibramycin CAP] 100 mg PO Q12HR #20 capsule oxyCODONE /ACETAMINOPHEN [Percocet 5/325 mg] 1 tab PO Q6HR PRN #20 tablet PRN Reason: Pain
[2016-09-26 15:56] VITALS: BP 149/80
== END 2016-09-26 15:30 | disposition left against medical advice (07) | DRG 854 ==
LOC: ED 07:56 → 3A 13:50 → 2B-SURG 09-23 14:02
PROVIDERS: ADMIT Internal Medicine; ATTEND Internal Medicine
PROC: 0JB90ZZ Excision of Buttock Subcutaneous Tissue and Fascia, Open Approach (ICD-10-PCS; principal; 2016-09-23)
PROC: 0JBB0ZZ Excision of Perineum Subcutaneous Tissue and Fascia, Open Approach (ICD-10-PCS; 2016-09-23)
DX: A41.9 Sepsis, unspecified organism (principal); L02.31 Cutaneous abscess of buttock; E87.1 Hypo-osmolality and hyponatremia; L02.215 Cutaneous abscess of perineum; I13.0 Hypertensive heart and chronic kidney disease with heart failure and stage 1 through stage 4 chronic kidney disease, or unspecified chronic kidney disease; L03.317 Cellulitis of buttock; L03.315 Cellulitis of perineum; D72.829 Elevated white blood cell count, unspecified; M79.1 Myalgia; I50.9 Heart failure, unspecified; G89.29 Other chronic pain; M54.9 Dorsalgia, unspecified; K21.9 Gastro-esophageal reflux disease without esophagitis; E87.6 Hypokalemia; E11.22 Type 2 diabetes mellitus with diabetic chronic kidney disease; N18.9 Chronic kidney disease, unspecified; E11.65 Type 2 diabetes mellitus with hyperglycemia; F17.210 Nicotine dependence, cigarettes, uncomplicated; I48.91 Unspecified atrial fibrillation; E83.42 Hypomagnesemia; Z53.21 Procedure and treatment not carried out due to patient leaving prior to being seen by health care provider; Z95.810 Presence of automatic (implantable) cardiac defibrillator; Z88.2 Allergy status to sulfonamides; Z88.1 Allergy status to other antibiotic agents
CPT/HCPCS: 36415; 72193; 80048; 80053; 82805; 82962; 83036; 83735; 84132; 84703; 85007; 85025; 85027; 87040; 87075; 87116; 88304; 96361; 96365; 96375; 99406; J0330; J0780; J1170; J1650; J1815; J1956; J2270; J2405; J2704; J3010; J3475; J3480; J7030; J7040; Q9967

== ENCOUNTER 2016-10-07 09:18 | Inpatient (IN) | payer OTHER ==
[2016-10-07 10:50] LABS: Basophils % (Auto) 0.7 % (0.0-1.8); Eosinophils % (Auto) 0.2 % (0.0-4.3); Hematocrit 31.3 % (30.3-42.9); Hemoglobin 10.1 gm/dl (10.1-14.3); Mean Corpuscular HGB Conc 32 % (30-34); Mean Corpuscular Hemoglobin 28 pg (28-32); Mean Corpuscular Volume 85 fl (79-97); Platelet Count 308 K/mm3 (140-440); Red Blood Count 3.68 M/mm3 (3.65-5.03); Red Cell Distribution Width 14.2 % (13.2-15.2); White Blood Count 11.4 K/mm3 (4.5-11.0)
[2016-10-07 10:59] LABS: Anion Gap 16 mmol/L; BUN/Creatinine Ratio 16.66; Blood Urea Nitrogen 10 mg/dL (7-17); Calcium 7.1 mg/dL (8.4-10.2); Carbon Dioxide 31 mmol/L (22-30); Chloride 97.6 mmol/L (98-107); Glucose 233 mg/dL (65-100); Sodium 142 mmol/L (137-145)
[2016-10-07 11:08] LABS: Potassium 2.9 mmol/L (3.6-5.0)
[2016-10-07] MEDS ORDERED: ZOFRAN IV ONE (11:27)
[2016-10-07] MEDS ORDERED: MORPHINE IV ONE (11:27)
--- NOTE | 2016-10-07 11:28 | Emergency Department Report ---
ED General Adult HPI - General Chief complaint: Skin/Abscess/Foreign Body Stated complaint: N/V WEAK Time Seen by Provider: 10/07/16 11:11 Source: patient, RN notes reviewed, old records reviewed Mode of arrival: Ambulatory Limitations: Physical Limitation - History of Present Illness Initial comments: This is a 46-year-old female. She is previously unknown to me. Her primary care doctor is Dr. Morales Brady Past medical history includes diabetes, hypokalemia, hypomagnesemia, hyponatremia, recent admission to this hospital for gluteal abscess, seen and evaluated by general surgery, Dr. Rodriguez She has an ICD device for "weak heart muscle", and sees Dr. Calvo. Patient presents to the ER with generalized weakness, nausea, vomiting, inability to tolerate liquid feeds. Patient reports multiple episodes of nausea and vomiting , subjective fevers. No irritative or obstructive urinary symptoms. No abdominal pain. Diarrhea is watery and brown. No irritative or obstructive urinary symptoms. Patient reports that she is defecating normally, passing gas normally. Symptoms are worsened, she reports that she went to the bathroom yesterday, urinated, and walks to her room, and passed out. Prior to passing out, there was no chest pain, neck pain, shortness of breath. There is currently no extremity weakness. There is no extremity numbness. -: Gradual Consistency: constant Improves with: none Worsens with: none Associated Symptoms: fever/chills, loss of appetite, malaise, nausea/vomiting, syncope, weakness - Related Data Home Medications Medication Instructions Recorded Confirmed Last Taken metFORMIN [Glucophage] 1,000 mg PO BID 07/31/14 10/07/16 02/07/16 Lansoprazole [Prevacid] 30 mg PO QDAY 11/29/15 10/07/16 02/07/16 PARoxetine [Paxil] 40 mg PO DAILY 11/29/15 10/07/16 02/07/16 Previous Rx's Medication Instructions Recorded Last Taken Type Ibuprofen [Motrin 600 MG tab] 600 mg PO Q8H PRN #30 tablet 06/25/16 Unknown Rx Bacillus Coagulans [Probiotic] 1 each PO BID #30 capsule. 09/26/16 Unknown Rx Clindamycin [Clindamycin CAP] 300 mg PO Q8H #20 cap 09/26/16 Unknown Rx Doxycycline [Vibramycin CAP] 100 mg PO Q12HR #20 capsule 09/26/16 Unknown Rx Allergies Allergy/AdvReac Type Severity Reaction Status Date / Time Sulfa (Sulfonamide Allergy Anaphylaxis Verified 09/21/16 08:14 Antibiotics) vancomycin Allergy "SHUTS Verified 09/21/16 08:14 KIDNEYS DOWN" ED Review of Systems ROS: Stated complaint: N/V WEAK Other details as noted in HPI Constitutional: fever, malaise, weakness Eyes: denies: vision change ENT: denies: epistaxis Respiratory: see HPI Cardiovascular: as per HPI Gastrointestinal: nausea, vomiting Genitourinary: as per HPI Musculoskeletal: arthralgia, myalgia Skin: lesions Neurological: weakness Psychiatric: anxiety ED Past Medical Hx - Past Medical History Previous Medical History?: Yes Hx Hypertension: Yes Hx Congestive Heart Failure: Yes Hx Diabetes: Yes Hx Renal Disease: No Hx Seizures: No Hx Asthma: No Hx COPD: No Additional medical history: pacemaker/defibrillator, chronic back pain, peripheral neuropathy - Surgical History Hx Pacemaker: Yes Hx Internal Defibrillator: Yes Hx Breast Surgery: Yes Additional Surgical History: breast surg x 2 - Social History Smoking Status: Current Every Day Smoker Substance Use Type: None - Medications Home Medications: Home Medications Medication Instructions Recorded Confirmed Last Taken Type metFORMIN [Glucophage] 1,000 mg PO BID 07/31/14 10/07/16 02/07/16 History Lansoprazole [Prevacid] 30 mg PO QDAY 11/29/15 10/07/16 02/07/16 History PARoxetine [Paxil] 40 mg PO DAILY 11/29/15 10/07/16 02/07/16 History Ibuprofen [Motrin 600 MG tab] 600 mg PO Q8H PRN #30 tablet 06/25/16 10/07/16 Unknown Rx Bacillus Coagulans [Probiotic] 1 each PO BID #30 capsule. 09/26/16 10/07/16 Unknown Rx Clindamycin [Clindamycin CAP] 300 mg PO Q8H #20 cap 09/26/16 10/07/16 Unknown Rx Doxycycline [Vibramycin CAP] 100 mg PO Q12HR #20 capsule 09/26/16 10/07/16 Unknown Rx ED Physical Exam - General Limitations: No Limitations General appearance: alert, in no apparent distress - Head Head exam: Present: atraumatic, normocephalic - Eye Eye exam: Present: normal appearance, PERRL, EOMI. Absent: nystagmus - ENT ENT exam: Present: normal exam, normal orophraynx, mucous membranes moist, normal external ear exam - Neck Neck exam: Present: normal inspection, full ROM. Absent: tenderness, meningismus - Respiratory Respiratory exam: Present: normal lung sounds bilaterally. Absent: respiratory distress, wheezes, rales, rhonchi, stridor, decreased breath sounds - Cardiovascular Cardiovascular Exam: Present: regular rate, normal rhythm, normal heart sounds. Absent: bradycardia, tachycardia, irregular rhythm, systolic murmur, diastolic murmur, rubs, gallop - GI/Abdominal GI/Abdominal exam: Present: soft, normal bowel sounds. Absent: distended, tenderness, guarding, rebound, rigid, pulsatile mass - Rectal Rectal exam: Present: normal inspection (surgical sites appear to be healing well. There is appropriate postoperative tenderness. Minimal purulent discharge is noted, however the compartments are soft, there is appropriate granulation tissue, there is no fluctuance), other (during rectal examination, I am escorted by nurse Nella eDleon) - Extremities Exam Extremities exam: Present: normal inspection, full ROM, normal capillary refill. Absent: tenderness, pedal edema, joint swelling, calf tenderness - Back Exam Back exam: Present: normal inspection, full ROM. Absent: tenderness, CVA tenderness (R), CVA tenderness (L), muscle spasm, paraspinal tenderness, vertebral tenderness - Neurological Exam Neurological exam: Present: alert, oriented X3, other (Extraocular movements intact. Tongue midline. No facial droop. Facial sensation intact to light touch in the V1, V2, V3 distribution bilaterally. 5 and 5 strength in 4 extremities.. Sensation is intact to light touch in 4 extremities.). Absent: motor sensory deficit - Psychiatric Psychiatric exam: Present: normal affect, normal mood - Skin Skin exam: Present: warm, dry, intact, normal color. Absent: rash ED Course Vital Signs 10/07/16 10/07/16 10/07/16 09:57 10:12 12:23 Temperature 99.1 F Pulse Rate 92 H Respiratory 18 18 18 Rate Blood Pressure 115/68 Blood Pressure [Left] O2 Sat by Pulse 97 100 Oximetry 10/07/16 10/07/16 12:53 13:29 Temperature 98.9 F Pulse Rate 86 Respiratory 18 18 Rate Blood Pressure Blood Pressure 122/74 [Left] O2 Sat by Pulse 99 Oximetry - Reevaluation(s) Reevaluation #1: 10/07/16 12:56 Differential diagnosis: Pneumonia, urinary tract infection, gastroenteritis, bacteremia, viremia, dehydration, structural cardiac disease, orthostasis, electrolyte imbalance Assessment and plan: 46-year-old female with nausea, vomiting, diarrhea, low- grade temperature rectally, 99.2, with reported inability to tolerate liquid feeds and syncope. Patient recently admitted to the hospital, however, she is perc Clarita, with a negative d-dimer. She has multiple electrolyte abnormalities , with , hypokalemia, hypomagnesemia. Her EKG demonstrates a ventricular paced rhythm which is essentially unchanged from her prior EKG, she has a GCS of 15, with an NIH score of 0.Patient is clinically sober at this time. The cervical spine is cleared through nexus and gibraltarian c spine rule I think it is very likely that the patient has acute intracranial injury. Nevertheless, a noncontrast CT scan of the brain is ordered. X-ray of the chest not consistent with pneumonia, urinalysis is pending. Case was discussed with the covering tariff expert, Dr. Lobato, whose group will follow as a consult. Patient has a [place] scientific ICD device, and nursing staff is working on interrogating it. I will defer to the inpatient team to follow up on the ICD device interrogation. Case was discussed with the Hospital physician, Dr. Nieves, who graciously accepted the patient to his service for intractable nausea or vomiting, multiple electrolyte imbalances, syncope. Reevaluation #2: 10/07/16 12:58 based on the patient's current physical examination and clinical presentation, I do not believe she requires emergent CT scan of the chest, abdomen, pelvis. Abdomen is soft and benign, with no tenderness, she is defecating and passing gas. Surgical site appears to be healing well, I don't believe it requires immediate or emergent imaging at this time. ED Medical Decision Making - Lab Data Result diagrams: 10/08/16 10:01 10/09/16 05:19 Vital Signs 10/07/16 10/07/16 09:57 12:23 Temperature 99.1 F Pulse Rate 92 H Respiratory 18 18 Rate Blood Pressure 115/68 O2 Sat by Pulse 97 Oximetry Lab Results 10/07/16 10/07/1617 Range/Units 10:34 10:34 11:26 WBC 11.4 H (4.5-11.0) K/mm3 RBC 3.68 (3.65-5.03) M/mm3 Hgb 10.1 (10.1-14.3) gm/dl Hct 31.3 (30.3-42.9) % MCV 85 (79-97) fl MCH 28 (28-32) pg MCHC 32 (30-34) % RDW 14.2 (13.2-15.2) % Plt Count 308 (140-440) K/mm3 Lymph % (Auto) 14.1 (13.4-35.0) % Victoria % (Auto) 9.2 H (0.0-7.3) % Eos % (Auto) 0.2 (0.0-4.3) % Baso % (Auto) 0.7 (0.0-1.8) % Lymph # 1.6 (1.2-5.4) K/mm3 Victoria # 1.0 H (0.0-0.8) K/mm3 Eos # 0.0 (0.0-0.4) K/mm3 Baso # 0.1 (0.0-0.1) K/mm3 Seg Neutrophils % 75.8 H (40.0-70.0) % Seg Neutrophils # 8.6 H (1.8-7.7) K/mm3 PT (12.2-14.9) Sec. INR (0.87-1.13) D-Dimer (0-234) ng/mlDDU Sodium 142 (137-145) mmol/L Potassium 2.9 L* (3.6-5.0) mmol/L Chloride 97.6 L (98-107) mmol/L Carbon Dioxide 31 H (22-30) mmol/L Anion Gap 16 mmol/L BUN 10 (7-17) mg/dL Creatinine 0.6 L (0.7-1.2) mg/dL Estimated GFR > 60 ml/min BUN/Creatinine Ratio 16.66 % Glucose 233 H (65-100) mg/dL Calcium 7.1 L (8.4-10.2) mg/dL Magnesium 1.2 L (1.7-2.3) mg/dL Total Creatine Kinase 33 (30-135) units/L Troponin T (0.00-0.029) ng/mL HCG, Quant (0-4) mIU/mL 10/07/16 10/07/16 10/07/16 Range/Units 11:26 11:26 11:31 WBC (4.5-11.0) K/mm3 RBC (3.65-5.03) M/mm3 Hgb (10.1-14.3) gm/dl Hct (30.3-42.9) % MCV (79-97) fl MCH (28-32) pg MCHC (30-34) % RDW (13.2-15.2) % Plt Count (140-440) K/mm3 Lymph % (Auto) (13.4-35.0) % Victoria % (Auto) (0.0-7.3) % Eos % (Auto) (0.0-4.3) % Baso % (Auto) (0.0-1.8) % Lymph # (1.2-5.4) K/mm3 Victoria # (0.0-0.8) K/mm3 Eos # (0.0-0.4) K/mm3 Baso # (0.0-0.1) K/mm3 Seg Neutrophils % (40.0-70.0) % Seg Neutrophils # (1.8-7.7) K/mm3 PT 18.2 H (12.2-14.9) Sec. INR 1.51 H (0.87-1.13) D-Dimer 187.08 (0-234) ng/mlDDU Sodium (137-145) mmol/L Potassium (3.6-5.0) mmol/L Chloride (98-107) mmol/L Carbon Dioxide (22-30) mmol/L Anion Gap mmol/L BUN (7-17) mg/dL Creatinine (0.7-1.2) mg/dL Estimated GFR ml/min BUN/Creatinine Ratio % Glucose (65-100) mg/dL Calcium (8.4-10.2) mg/dL Magnesium (1.7-2.3) mg/dL Total Creatine Kinase (30-135) units/L Troponin T < 0.010 (0.00-0.029) ng/mL HCG, Quant < 2 (0-4) mIU/mL - EKG Data 10/07/16 12:59 ventricular paced rhythm, none to be traumatic, left axis deviation, appropriate intraventricular conduction delay, good capture, not consistent with STEMI, appears unchanged from prior EKG. - Radiology Data Radiology results: image reviewed interpreted by me: X-ray the chest is negative for acute disease, left-sided ICD device is noted. Critical care attestation.: If time is entered above; I have spent that time in minutes in the direct care of this critically ill patient, excluding procedure time. ED Disposition Clinical Impression: Hypokalemia, Hypomagnesemia, Syncope, Nausea and vomiting Disposition: OP ADMITTED IP TO THIS HOSP Is pt being admited?: Yes Does the pt Need Aspirin: No Condition: Good
[2016-10-07] MEDS ORDERED: NACL 0.9% 1000 ML 2,000 ML IV ONE (11:29)
[2016-10-07 11:51] LABS: INR 1.51 (0.87-1.13)
[2016-10-07 12:01] LABS: Magnesium 1.2 mg/dL (1.7-2.3)
--- NOTE | 2016-10-07 12:42 | History and Physical Report ---
History of Present Illness Chief complaint: i feel nauseated and i keep throwing up History of present illness: 46 YO Female with DM with Neuropathy,HTN, CHF,Nicotine Dependence present to ED for evaluation. Pt states that she has been experiencing nausea and vomiting for the past week, with worsening symptoms over the past 12 hours. Pt is unable to tolerate solid or liquid diet for the past 2 days. Pt denies fever, chills, CP, Palpitations, BRBPR, Hematemesis, Syncope, skin rashes, productive cough, or recent ill contacts. Past History Past Medical History: diabetes, heart failure, hypertension Past Surgical History: Other (ICD placement, breast surgery) Social history: single, smoking. denies: alcohol abuse, prescription drug abuse , IV drug use Family history: diabetes, hypertension Medications and Allergies Allergies Allergy/AdvReac Type Severity Reaction Status Date / Time Sulfa (Sulfonamide Allergy Anaphylaxis Verified 09/21/16 08:14 Antibiotics) vancomycin Allergy "SHUTS Verified 09/21/16 08:14 KIDNEYS DOWN" Home Medications Medication Instructions Recorded Confirmed Last Taken Type metFORMIN [Glucophage] 1,000 mg PO BID 07/31/14 10/07/16 02/07/16 History Lansoprazole [Prevacid] 30 mg PO QDAY 11/29/15 10/07/16 02/07/16 History PARoxetine [Paxil] 40 mg PO DAILY 11/29/15 10/07/16 02/07/16 History Ibuprofen [Motrin 600 MG tab] 600 mg PO Q8H PRN #30 tablet 06/25/16 10/07/16 Unknown Rx Bacillus Coagulans [Probiotic] 1 each PO BID #30 capsule. 09/26/16 10/07/16 Unknown Rx Clindamycin [Clindamycin CAP] 300 mg PO Q8H #20 cap 09/26/16 10/07/16 Unknown Rx Doxycycline [Vibramycin CAP] 100 mg PO Q12HR #20 capsule 09/26/16 10/07/16 Unknown Rx Active Meds: Active Medications Potassium Chloride (Kcl 10meq/100ml) 10 meq in 100 mls @ 100 mls/hr IV Q1H MARLO Stop: 10/07/16 15:59 Review of Systems All systems: negative Gastrointestinal: nausea, vomiting, loss of appetite Exam - Constitutional Vitals: Temp Pulse Resp BP Pulse Ox 99.1 F 92 H 18 115/68 97 04/01/17 09:57 10/07/16 09:57 10/07/16 12:23 10/07/16 09:57 10/07/16 09:57 General appearance: Present: no acute distress, well-nourished - EENT Eyes: Present: PERRL ENT: hearing intact, clear oral mucosa - Neck Neck: Present: supple, normal ROM - Respiratory Respiratory effort: normal Respiratory: bilateral: CTA - Cardiovascular Heart Sounds: Present: S1 & S2. Absent: rub, click - Extremities Extremities: pulses symmetrical, No edema Peripheral Pulses: within normal limits - Abdominal General gastrointestinal: Present: soft, non-tender, non-distended, hypoactive bowel sounds. Absent: hepatomegaly, splenomegaly Female genitourinary: Present: normal - Integumentary Integumentary: Present: clear, warm, dry - Musculoskeletal Musculoskeletal: gait normal, strength equal bilaterally - Psychiatric Psychiatric: appropriate mood/affect, intact judgment & insight - Neurologic Neurologic: CNII-XII intact, moves all extremities Results - Labs CBC & Chem 7: 10/07/16 10:34 10/07/16 10:34 Labs: Abnormal lab results 10/07/16 10/07/16 10/07/16 Range/Units 10:34 10:34 11:26 WBC 11.4 H (4.5-11.0) K/mm3 Ogle % (Auto) 9.2 H (0.0-7.3) % Ogle # 1.0 H (0.0-0.8) K/mm3 Seg Neutrophils % 75.8 H (40.0-70.0) % Seg Neutrophils # 8.6 H (1.8-7.7) K/mm3 PT (12.2-14.9) Sec. INR (0.87-1.13) Potassium 2.9 L* (3.6-5.0) mmol/L Chloride 97.6 L (98-107) mmol/L Carbon Dioxide 31 H (22-30) mmol/L Creatinine 0.6 L (0.7-1.2) mg/dL Glucose 233 H (65-100) mg/dL Calcium 7.1 L (8.4-10.2) mg/dL Magnesium 1.2 L (1.7-2.3) mg/dL 10/07/16 Range/Units 11:31 WBC (4.5-11.0) K/mm3 Ogle % (Auto) (0.0-7.3) % Ogle # (0.0-0.8) K/mm3 Seg Neutrophils % (40.0-70.0) % Seg Neutrophils # (1.8-7.7) K/mm3 PT 18.2 H (12.2-14.9) Sec. INR 1.51 H (0.87-1.13) Potassium (3.6-5.0) mmol/L Chloride (98-107) mmol/L Carbon Dioxide (22-30) mmol/L Creatinine (0.7-1.2) mg/dL Glucose (65-100) mg/dL Calcium (8.4-10.2) mg/dL Magnesium (1.7-2.3) mg/dL Assessment and Plan - Patient Problems (1) SIRS (systemic inflammatory response syndrome) Current Visit: Yes Status: Acute Plan to address problem: Supportive care, IVF therapy, Iv abx, bowel rest but advance as tolerated. (2) Hypokalemia Current Visit: Yes Status: Acute Plan to address problem: Repleted (3) Intractable nausea and vomiting Current Visit: Yes Status: Acute Qualifiers: Vomiting type: V Plan to address problem: IVF, supportive care, IVF replacement, anti emetic therapy, reglan, early ambulation, (4) Orthostatic hypotension Current Visit: Yes Status: Acute Plan to address problem: IVF, supportive care. monitor bp q shift (5) Diabetes Current Visit: Yes Status: Acute Qualifiers: Diabetes mellitus type: D Diabetes mellitus complication status: D Diabetes mellitus complication detail: D Diabetic retinopathy severity: D Proliferative retinopathy type: P Diabetes mellitus macular edema: D Diabetes mellitus fdc insulin use: D Laterality: L Chronic kidney disease stage: C Plan to address problem: ADA diet, insulin, accu check (6) DVT prophylaxis Current Visit: Yes Status: Acute
[2016-10-07] MEDS: KCL 10MEQ/100ML 10 MEQ/100 ML BAG IV SCH ×3 (12:50→22:25)
[2016-10-07] MEDS ORDERED: MAGNESIUM SULFATE 2GM/50ML 2 GM/50 ML BAG IV ONE ×2 (12:51→15:19)
[2016-10-07] MEDS ORDERED: DUONEB 0.5 MG-3 MG/3 ML SOLN IH PRN (13:29)
[2016-10-07] MEDS ORDERED: TYLENOL PO PRN (13:29)
--- NOTE | 2016-10-07 13:31 | Cat Scan Report ---
CT scan of contrast: History: Syncope. Findings: Ventricles are normal in size and midline in location. No evidence of acute ischemia, hemorrhage or mass. No extra axial fluid collection. The right middle cerebral artery appears more prominent and slightly denser compared to the left. There is abnormal ischemic change distal to it. No extra-axial fluid collection. Normal brainstem and cerebellum. Normal sinuses and mastoid air cells. Impression: Prominent right middle cerebral artery. If acute ischemia is suspected MRI scan for further evaluation.
--- NOTE | 2016-10-07 13:32 | XRay Report ---
Single view chest: History: Fever and syncope. Findings: Normal cardiomediastinal silhouette. Trachea is midline. No consolidation, pneumothorax or pleural effusion. Stable pacemaker. Impression: No acute cardiopulmonary findings.
[2016-10-07] MEDS ORDERED: PROVENTIL IH PRN (13:36)
[2016-10-07 14:46] LABS: Bilirubin,Urine NEG (Negative); Blood,Urine NEG (Negative); Ketones,Urine NEG (Negative); Leukocyte Esterase,Urine NEG (Negative); Mucus,Urine FEW /HPF; Nitrite,Urine NEG (Negative); Urobilinogen,Urine < 2.0 mg/dL (<2.0)
[2016-10-07] MEDS ORDERED: KCL 10MEQ/100ML 10 MEQ/100 ML BAG IV ONE (15:19)
[2016-10-07] MEDS: REGLAN PO ONE ×2 (15:31→22:39)
[2016-10-07] MEDS ORDERED: REGLAN ONE (15:39)
[2016-10-07] MEDS: ZOFRAN IV PRN ×2 (17:34→22:41)
[2016-10-07] MEDS ORDERED: K-DUR PO ONE (18:05)
[2016-10-07] MEDS: NORCO 5/325 PO PRN (18:42)
[2016-10-07] MEDS: NOVOLOG SUB-Q SCH (22:32)
[2016-10-08] MEDS: NORCO 5/325 PO PRN ×3 (06:10→20:03)
[2016-10-08] MEDS: ZOFRAN IV PRN ×3 (06:39→20:03)
[2016-10-08] MEDS: NOVOLOG SUB-Q SCH ×3 (08:08→16:53)
--- NOTE | 2016-10-08 10:19 | Progress Note ---
Assessment and Plan Assessment and plan: Intractable nausea,vomiting, diarrhea. On iv fluids, Zofran iv prn. Gastroparesis vs acute gastroenteritis. Diabetes mellitus type II. Continue fingerstick glucose before every meal and at bedtime Hypokalemiaia. Replace and recheck Hypomagnesemia. Magnesium 1.2 on admission. Replace and recheck. Hypertension. Blood pressure stable DVT prophylaxis with heparin Full code History Interval history: nausea, Vomiting, diarrhea Hospitalist Physical - Physical exam Narrative exam: Gen: Not in acute distress, Neck:supple, no JVD HEENT: Normocephalic, atraumatic Lungs:Clear to auscultation bilaterally, no rales or wheeze Heart:S1 and S2 reg, no murmurs,rubs or gallop Abdomen:soft, non tender, non distended, normal bowel sounds Ext: No edema, clubbing or cyanosis Neuro:Awake,alert,oriented x 3. no facial asymmetry, normal speech, Psych:normal mood - Constitutional Vitals: Temp Pulse Resp BP Pulse Ox 98.3 F 96 H 20 153/87 95 10/08/16 07:35 10/08/16 07:35 10/08/16 07:35 10/08/16 07:35 10/08/16 07:35 General appearance: Present: no acute distress, well-nourished Results - Labs CBC & Chem 7: 10/08/16 10:01 10/09/16 05:19 Labs: Laboratory Last Values WBC 11.4 K/mm3 (4.5-11.0) H 10/07/16 10:34 RBC 3.68 M/mm3 (3.65-5.03) 10/07/16 10:34 Hgb 10.1 gm/dl (10.1-14.3) 10/07/16 10:34 Hct 31.3 % (30.3-42.9) 10/07/16 10:34 MCV 85 fl (79-97) 10/07/16 10:34 MCH 28 pg (28-32) 10/07/16 10:34 MCHC 32 % (30-34) 10/07/16 10:34 RDW 14.2 % (13.2-15.2) 10/07/16 10:34 Plt Count 308 K/mm3 (140-440) 10/07/16 10:34 Lymph % (Auto) 14.1 % (13.4-35.0) 10/07/16 10:34 Wake % (Auto) 9.2 % (0.0-7.3) H 10/07/16 10:34 Eos % (Auto) 0.2 % (0.0-4.3) 10/07/16 10:34 Baso % (Auto) 0.7 % (0.0-1.8) 10/07/16 10:34 Lymph # 1.6 K/mm3 (1.2-5.4) 10/07/16 10:34 Wake # 1.0 K/mm3 (0.0-0.8) H 10/07/16 10:34 Eos # 0.0 K/mm3 (0.0-0.4) 10/07/16 10:34 Baso # 0.1 K/mm3 (0.0-0.1) 10/07/16 10:34 Seg Neutrophils % 75.8 % (40.0-70.0) H 10/07/16 10:34 Seg Neutrophils # 8.6 K/mm3 (1.8-7.7) H 10/07/16 10:34 PT 18.2 Sec. (12.2-14.9) H 10/07/16 11:31 INR 1.51 (0.87-1.13) H 10/07/16 11:31 D-Dimer 187.08 ng/mlDDU (0-234) 10/07/16 11:31 Sodium 142 mmol/L (137-145) 10/07/16 10:34 Potassium 2.9 mmol/L (3.6-5.0) L* 10/07/16 10:34 Chloride 97.6 mmol/L (98-107) L 10/07/16 10:34 Carbon Dioxide 31 mmol/L (22-30) H 10/07/16 10:34 Anion Gap 16 mmol/L 10/07/16 10:34 BUN 10 mg/dL (7-17) 10/07/16 10:34 Creatinine 0.6 mg/dL (0.7-1.2) L 10/07/16 10:34 Estimated GFR > 60 ml/min 10/07/16 10:34 BUN/Creatinine Ratio 16.66 % 10/07/16 10:34 Glucose 233 mg/dL (65-100) H 10/07/16 10:34 POC Glucose 201 (70-105) H 10/08/16 05:48 Calcium 7.1 mg/dL (8.4-10.2) L 10/07/16 10:34 Magnesium 1.2 mg/dL (1.7-2.3) L 10/07/16 11:26 Total Creatine Kinase 33 units/L (30-135) 10/07/16 11:26 Troponin T < 0.010 ng/mL (0.00-0.029) 10/07/16 11:26 HCG, Quant < 2 mIU/mL (0-4) 10/07/16 11:26 Urine Color Yellow (Yellow) 10/07/16 14:30 Urine Turbidity Clear (Clear) 10/07/16 14:30 Urine pH 6.0 (5.0-7.0) 10/07/16 14:30 Ur Specific [place] 1.017 (1.003-1.030) 10/07/16 14:30 Urine Protein 30 mg/dl mg/dL (Negative) 10/07/16 14:30 Urine Glucose (UA) 50 mg/dL (Negative) 10/07/16 14:30 Urine Ketones Neg mg/dL (Negative) 10/07/16 14:30 Urine Blood Neg (Negative) 10/07/16 14:30 Urine Nitrite Neg (Negative) 10/07/16 14:30 Urine Bilirubin Neg (Negative) 10/07/16 14:30 Urine Urobilinogen < 2.0 mg/dL (<2.0) 10/07/16 14:30 Ur Leukocyte Esterase Neg (Negative) 10/07/16 14:30 Urine WBC (Auto) 1.0 /HPF (0.0-6.0) 10/07/16 14:30 Urine RBC (Auto) 3.0 /HPF (0.0-6.0) 10/07/16 14:30 Urine Mucus Few /HPF 10/07/16 14:30 Urine HCG, Qual Negative (Negative) 10/07/16 14:30
[2016-10-08 11:18] LABS: Hematocrit 31.2 % (30.3-42.9); Hemoglobin 10.2 gm/dl (10.1-14.3); Mean Corpuscular HGB Conc 33 % (30-34); Mean Corpuscular Hemoglobin 28 pg (28-32); Mean Corpuscular Volume 86 fl (79-97); Platelet Count 277 K/mm3 (140-440); Red Blood Count 3.63 M/mm3 (3.65-5.03); Red Cell Distribution Width 14.5 % (13.2-15.2); White Blood Count 10.5 K/mm3 (4.5-11.0)
[2016-10-08 11:30] LABS: Anion Gap 18 mmol/L; Blood Urea Nitrogen 8 mg/dL (7-17); Calcium 6.8 mg/dL (8.4-10.2); Carbon Dioxide 29 mmol/L (22-30); Chloride 98.4 mmol/L (98-107); Glucose 147 mg/dL (65-100); Sodium 143 mmol/L (137-145)
[2016-10-08] MEDS ORDERED: MAGNESIUM SULFATE 3 GM in NACL 0.9% 100 ML IV ONE (11:44)
[2016-10-08 11:57] LABS: Potassium 2.5 mmol/L (3.6-5.0)
--- NOTE | 2016-10-08 12:42 | Consultation ---
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 denies: alcohol abuse, prescription drug abuse , IV drug use Family history: diabetes, hypertension Medications and Allergies Allergies Allergy/AdvReac Type Severity Reaction Status Date / Time Sulfa (Sulfonamide Allergy Anaphylaxis Verified 09/21/16 08:14 Antibiotics) vancomycin Allergy "SHUTS Verified 09/21/16 08:14 KIDNEYS DOWN" Home Medications Medication Instructions Recorded Confirmed Last Taken Type metFORMIN [Glucophage] 1,000 mg PO BID 07/31/14 10/07/16 02/07/16 History Lansoprazole [Prevacid] 30 mg PO QDAY 11/29/15 10/07/16 02/07/16 History PARoxetine [Paxil] 40 mg PO DAILY 11/29/15 10/07/16 02/07/16 History Ibuprofen [Motrin 600 MG tab] 600 mg PO Q8H PRN #30 tablet 06/25/16 10/07/16 Unknown Rx Bacillus Coagulans [Probiotic] 1 each PO BID #30 capsule. 09/26/16 10/07/16 Unknown Rx Clindamycin [Clindamycin CAP] 300 mg PO Q8H #20 cap 09/26/16 10/07/16 Unknown Rx Doxycycline [Vibramycin CAP] 100 mg PO Q12HR #20 capsule 09/26/16 10/07/16 Unknown Rx Active Meds: Active Medications Acetaminophen (Tylenol) 650 mg PO Q4H PRN PRN Reason: Pain MILD(1-3)/Fever >100.5/BAL Acetaminophen/Hydrocodone Bitart ([place] 5/325) 1 each PO Q6H PRN PRN Reason: Pain, Moderate (4-6) Last Admin: 10/08/16 06:10 Dose: 1 each Albuterol (Proventil) 2.5 mg IH Q4H PRN PRN Reason: Shortness Of Breath Magnesium Sulfate 3 gm/ Sodium (Chloride) 106 mls @ 35.333 mls/hr IV ONCE ONE Stop: 10/08/16 14:43 Potassium Chloride (Kcl 10meq/100ml) 10 meq in 100 mls @ 100 mls/hr IV Q1H MARLO Stop: 10/08/16 16:59 Insulin Aspart (Novolog) 0 units SUB-Q ACHS MARLO PRN Reason: Protocol Last Admin: 10/08/16 08:08 Dose: 2 units Ondansetron HCl (Zofran) 4 mg IV Q6HR PRN PRN Reason: Nausea And Vomiting Last Admin: 10/08/16 06:39 Dose: 4 mg Potassium Chloride (Potassium Chloride) 40 meq PO Q4H MARLO Stop: 10/08/16 21:01 Physical Examination Vital Signs Temp Pulse Resp BP Pulse Ox 99.1 F 92 H 18 115/68 97 10/07/16 09:57 10/07/16 09:57 10/07/16 09:57 10/07/16 09:57 10/07/16 09:57 General appearance: no acute distress HEENT: Positive: PERRL, EOMI Neck: Positive: neck supple. Negative: JVD/HJR Cardiac: Positive: Reg Rate and Rhythm, S1/S2. Negative: S3 Lungs: Positive: Normal Exam Neuro: Positive: Grossly Intact Abdomen: Positive: Soft Extremities: Absent: edema Results 10/08/16 10:01 10/08/16 10:01 CBC 10/08/16 Range/Units 10:01 WBC 10.5 (4.5-11.0) K/mm3 RBC 3.63 L (3.65-5.03) M/mm3 Hgb 10.2 (10.1-14.3) gm/dl Hct 31.2 (30.3-42.9) % Plt Count 277 (140-440) K/mm3 Comprehensive Metabolic Panel 10/08/16 Range/Units 10:01 Sodium 143 (137-145) mmol/L Potassium 2.5 L* (3.6-5.0) mmol/L Chloride 98.4 (98-107) mmol/L Carbon Dioxide 29 (22-30) mmol/L BUN 8 (7-17) mg/dL Creatinine 0.5 L (0.7-1.2) mg/dL Glucose 147 H (65-100) mg/dL Calcium 6.8 L (8.4-10.2) mg/dL
[2016-10-08] MEDS: POTASSIUM CHLORIDE PO SCH ×2 (12:44→16:53)
[2016-10-08] MEDS: KCL 10MEQ/100ML 10 MEQ/100 ML BAG IV SCH ×2 (16:53→20:57)
[2016-10-08] MEDS ORDERED: NACL 0.9% 250ML 250 ML IV ONE (17:01)
[2016-10-08 21:46] LABS: Anion Gap 20 mmol/L; Blood Urea Nitrogen 7 mg/dL (7-17); Calcium 6.9 mg/dL (8.4-10.2); Carbon Dioxide 26 mmol/L (22-30); Chloride 96.9 mmol/L (98-107); Glucose 173 mg/dL (65-100); Potassium 3.6 mmol/L (3.6-5.0); Sodium 139 mmol/L (137-145)
[2016-10-09] MEDS: NOVOLOG SUB-Q SCH ×4 (00:13→17:13)
[2016-10-09] MEDS: KCL 10MEQ/100ML 10 MEQ/100 ML BAG IV SCH ×2 (00:13→04:27)
[2016-10-09] MEDS: POTASSIUM CHLORIDE PO SCH (00:24)
[2016-10-09] MEDS: NORCO 5/325 PO PRN ×2 (02:07→12:07)
[2016-10-09] MEDS: ZOFRAN IV PRN ×4 (02:07→17:16)
[2016-10-09 06:42] LABS: Anion Gap 20 mmol/L; Blood Urea Nitrogen 5 mg/dL (7-17); Carbon Dioxide 26 mmol/L (22-30); Chloride 97.2 mmol/L (98-107); Glucose 190 mg/dL (65-100); Magnesium 1.5 mg/dL (1.7-2.3); Potassium 3.7 mmol/L (3.6-5.0); Sodium 139 mmol/L (137-145)
--- NOTE | 2016-10-09 09:51 | Admit Criteria Form ---
Admission Criteria Documentation: HYPONATREMIA; HYPERNATREMIA; HYPOKALEMIA; HYPERKALEMIA; HYPOCALCEMIA; HYPERCALCEMIA Clinical Indications for Inpatient Care (Place 'X' for any and all applicable criteria): Ongoing inpatient care may be indicated for ANY ONE of the following [G](1)(2)(3 )(5): [ ]I. Hyponatremia with ANY ONE of the following: [ ]a) Sodium less than 130 mEq/L (mmol/L) (new) (6)(22) [ ]b) Sodium less than 135 mEq/L (mmol/L) with ANY ONE of the following: [ ]i) Severe medical etiology requiring inpatient management (eg, heart failure, hypovolemia) [ ]ii) Altered mental status [ ]iii) Seizures [ ]II. Hypernatremia with ANY ONE of the following: [ ]a) Sodium greater than 155 mEq/L (mmol/L) [ ]b) Sodium greater than 150 mEq/L (mmol/L) with ANY ONE of the following: [ ] i) Altered mental status [ ]ii) Seizures [ ]iii) Severe medical etiology (eg, hypovolemia, diabetes insipidus) [ ]iv) Severe weakness [ ]v) Severe medical etiology (eg, hemolysis, infection, drug overdose) [X]III. Hypokalemia with ANY ONE of the following: [ ]a) Potassium less than 2.5 mEq/L (mmol/L) despite outpatient and emergency treatment [X]b) Potassium less than 3.0 mEq/L (mmol/L) with ANY ONE of the following: [ ]i) Weakness [ ]ii) Cardiac abnormality (eg, arrhythmia, conduction disturbance) [ ]iii) Cardiac ischemia [ ]iv) Ileus [ ]v) Ongoing medical cause requiring inpatient management. ( e.g., acute renal wasting, SIADH) [X]vi) Other severe symptoms [ ] IV. Hyperkalemia with ANY ONE of the following: [ ]a) Potassium greater than 6.5 mEq/L (mmol/L) [ ]b) Potassium greater than 5 mEq/L (mmol/L) with ANY ONE of the following: [ ]i) Severe ECG findings [H] [ ]ii) Acute worsening of renal failure (creatinine greater than 2.5 mg/dL (221 micromoles/L) or significant elevation for age and size) [ ] V. Hypocalcemia with ANY ONE of the following: [ ]a) Calcium less than 7 mg/dL (1.75 mmol/L) despite outpatient and emergency treatment(19) [ ]b) Calcium less than 8 mg/dL (2 mmol/L) with significant symptoms or findings; examples include: [ ]i) Cardiac abnormality (eg, arrhythmia or conduction disturbance) [ ]ii) Altered mental status [ ]iii) Seizures [ ]iv) Breathing difficulty [ ]v) Muscle spasms [ ]. Hypercalcemia with ANY ONE of the following: [ ]a) Calcium greater than 14 mg/dL (3.5 mmol/L) [ ]b) Calcium greater than 12 mg/dL (3 mmol/L) with ANY ONE of the following: [ ]i) Significant dehydration or hypovolemia as indicated by ANY ONE of the following(2): [ ]1. Clinically significant dehydration as indicated by ANY ONE of the following: [ ]A. Acute loss of weight from baseline (5% of body weight in adults, 9% in pediatric patients) [ ]B. Hemodynamic instability [ ]C. Acute renal failure [ ]D. Serum sodium greater than 150 mEq/L (mmol/L) [ ]2) Dehydration that is persistent indicated by ALL of the following: [ ]A. Oral rehydration therapy not tolerated or insufficient to adequately correct dehydration [ ]B. Appropriate intravenous treatment (eg, fluids ) does not readily correct dehydration ie, after 12 to 24 hours of treatment) [ ]ii) Significant symptoms or findings; examples include: [ ]1) Altered mental status [ ]2) Cardiac abnormality (eg, arrhythmia, conduction disturbance) [ ]3) Cardiac abnormality (eg, arrhythmia, conduction disturbance) The original [facility] content created by [employer] has been revised. The portions of the content which have been revised are identified through the use of italic text or in bold, and [facility] has neither reviewed nor approved the modified material. All other unmodified content is copyright [facility] Please see references footnoted in the original [facility] [employer] edition 2016 Admission Criteria Met: Yes
[2016-10-09] MEDS ORDERED: MAGNESIUM SULFATE 4GM/100ML 4 GM/100 ML BAG IV ONE (10:00)
--- NOTE | 2016-10-09 10:51 | Progress Note ---
Assessment and Plan Assessment and plan: Intractable nausea,vomiting, diarrhea. On iv fluids, Zofran iv prn. Gastroparesis vs acute gastroenteritis. Consult GI for possible EGD. Diabetes mellitus type II. Continue fingerstick glucose before every meal and at bedtime Hypokalemiaia. Potassium 3.7 today. Hypomagnesemia . Magnesium improved to 1.5, but still low. Replace and recheck. Hypertension. Blood pressure stable DVT prophylaxis with Heparin. Full code History Interval history: nausea, Vomiting, diarrhea Hospitalist Physical - Physical exam Narrative exam: Gen: Not in acute distress, Neck:supple, no JVD HEENT: Normocephalic, atraumatic Lungs:Clear to auscultation bilaterally, no rales or wheeze Heart:S1 and S2 reg, no murmurs,rubs or gallop Abdomen:soft, non tender, non distended, normal bowel sounds Ext: No edema, clubbing or cyanosis Neuro:Awake,alert,oriented x 3. no facial asymmetry, normal speech, Psych:normal mood - Constitutional Vitals: Temp Pulse Resp BP Pulse Ox 98.4 F 106 H 18 137/80 98 10/09/16 08:00 10/09/16 08:00 10/09/16 08:00 10/09/16 08:00 10/09/16 08:00 General appearance: Present: no acute distress Results - Labs CBC & Chem 7: 10/08/16 10:01 10/09/16 05:19 Labs: Laboratory Last Values WBC 10.5 K/mm3 (4.5-11.0) 10/08/16 10:01 RBC 3.63 M/mm3 (3.65-5.03) L 10/08/16 10:01 Hgb 10.2 gm/dl (10.1-14.3) 10/08/16 10:01 Hct 31.2 % (30.3-42.9) 10/08/16 10:01 MCV 86 fl (79-97) 10/08/16 10:01 MCH 28 pg (28-32) 10/08/16 10:01 MCHC 33 % (30-34) 10/08/16 10:01 RDW 14.5 % (13.2-15.2) 10/08/16 10:01 Plt Count 277 K/mm3 (140-440) 10/08/16 10:01 Lymph % (Auto) 14.1 % (13.4-35.0) 10/07/16 10:34 [place] % (Auto) 9.2 % (0.0-7.3) H 10/07/16 10:34 Eos % (Auto) 0.2 % (0.0-4.3) 10/07/16 10:34 Baso % (Auto) 0.7 % (0.0-1.8) 10/07/16 10:34 Lymph # 1.6 K/mm3 (1.2-5.4) 10/07/16 10:34 [place] # 1.0 K/mm3 (0.0-0.8) H 10/07/16 10:34 Eos # 0.0 K/mm3 (0.0-0.4) 10/07/16 10:34 Baso # 0.1 K/mm3 (0.0-0.1) 10/07/16 10:34 Seg Neutrophils % 75.8 % (40.0-70.0) H 10/07/16 10:34 Seg Neutrophils # 8.6 K/mm3 (1.8-7.7) H 10/07/16 10:34 PT 18.2 Sec. (12.2-14.9) H 10/07/16 11:31 INR 1.51 (0.87-1.13) H 10/07/16 11:31 D-Dimer 187.08 ng/mlDDU (0-234) 10/07/16 11:31 Sodium 139 mmol/L (137-145) 10/09/16 05:19 Potassium 3.7 mmol/L (3.6-5.0) 10/09/16 05:19 Chloride 97.2 mmol/L (98-107) L 10/09/16 05:19 Carbon Dioxide 26 mmol/L (22-30) 10/09/16 05:19 Anion Gap 20 mmol/L 10/09/16 05:19 BUN 5 mg/dL (7-17) L 10/09/16 05:19 Creatinine 0.5 mg/dL (0.7-1.2) L 10/09/16 05:19 Estimated GFR > 60 ml/min 10/09/16 05:19 BUN/Creatinine Ratio 10.00 % 10/09/16 05:19 Glucose 190 mg/dL (65-100) H 10/09/16 05:19 POC Glucose 196 (70-105) H 10/09/16 06:22 Calcium 7.0 mg/dL (8.4-10.2) L 10/09/16 05:19 Magnesium 1.5 mg/dL (1.7-2.3) L 10/09/16 05:19 Total Creatine Kinase 33 units/L (30-135) 10/07/16 11:26 Troponin T < 0.010 ng/mL (0.00-0.029) 10/07/16 11:26 HCG, Quant < 2 mIU/mL (0-4) 10/07/16 11:26 Urine Color Yellow (Yellow) 10/07/16 14:30 Urine Turbidity Clear (Clear) 10/07/16 14:30 Urine pH 6.0 (5.0-7.0) 10/07/16 14:30 Ur Specific [place] 1.017 (1.003-1.030) 10/07/16 14:30 Urine Protein 30 mg/dl mg/dL (Negative) 10/07/16 14:30 Urine Glucose (UA) 50 mg/dL (Negative) 10/07/16 14:30 Urine Ketones Neg mg/dL (Negative) 10/07/16 14:30 Urine Blood Neg (Negative) 10/07/16 14:30 Urine Nitrite Neg (Negative) 10/07/16 14:30 Urine Bilirubin Neg (Negative) 10/07/16 14:30 Urine Urobilinogen < 2.0 mg/dL (<2.0) 10/07/16 14:30 Ur Leukocyte Esterase Neg (Negative) 10/07/16 14:30 Urine WBC (Auto) 1.0 /HPF (0.0-6.0) 10/07/16 14:30 Urine RBC (Auto) 3.0 /HPF (0.0-6.0) 10/07/16 14:30 Urine Mucus Few /HPF 10/07/16 14:30 Urine HCG, Qual Negative (Negative) 10/07/16 14:30
[2016-10-09] MEDS: NS/KCL 20MEQ 20 MEQ/1,000 ML BAG IV SCH (12:09)
--- NOTE | 2016-10-09 16:38 | Event Note ---
Date: 10/09/16 - luis consult dictated - pt h/o poorly controlled dm now nausea, vomiting - possible gastroparesis vs other - EGD am
[2016-10-09] MEDS: HEPARIN SUB-Q SCH ×2 (17:52→23:59)
--- NOTE | 2016-10-09 18:23 | Progress Note ---
Assessment and Plan - Patient Problems (1) Syncope Current Visit: Yes Status: Acute Qualifiers: Syncope type: S Encounter type: E Plan to address problem: Her syncope is likely vasovagal or due to dehydration, following 2 weeks of persistent nausea vomiting. She still complains of nausea and vomiting and unable to keep food down at this time, and GI consultation has been recommended. Subjective Date of service: 10/09/16 Interval history: This 46-year-old woman presented to the hospital with syncope after 2 weeks of nausea vomiting and abdominal pain. Her abdominal symptoms began after she apparently underwent surgical drainage of an abscess on her buttocks. She has a history of a nonischemic cardiomyopathy, with cardiac defibrillator in situ. As part of her syncope workup, she has undergone interrogation of her ICD which was negative. Her syncope is likely vasovagal or due to dehydration, following 2 weeks of persistent nausea vomiting. She still complains of nausea and vomiting and unable to keep food down at this time, and GI consultation has been recommended. Objective Vital Signs Temp Pulse Resp Resp BP Pulse Ox 10/09/16 15:00 98.4 F 100 H 20 128/77 10/09/16 08:00 98.4 F 106 H 18 137/80 98 10/09/16 02:07 16 10/09/16 00:00 99.4 F 106 H 18 118/72 97 10/08/16 22:00 18 16 10/08/16 20:03 16 - Physical Examination General: No Apparent Distress HEENT: Positive: PERRL, EOMI Neck: Positive: neck supple. Negative: JVD/HJR Cardiac: Positive: Reg Rate and Rhythm Lungs: Positive: Decreased Breath Sounds Neuro: Positive: Grossly Intact Abdomen: Positive: Soft Skin: Positive: Clear Extremities: Absent: edema - Labs and Meds Comprehensive Metabolic Panel 10/08/16 10/09/16 Range/Units 21:01 05:19 Sodium 139 139 (137-145) mmol/L Potassium 3.6 D 3.7 (3.6-5.0) mmol/L Chloride 96.9 L 97.2 L (98-107) mmol/L Carbon Dioxide 26 26 (22-30) mmol/L BUN 7 5 L (7-17) mg/dL Creatinine 0.5 L 0.5 L (0.7-1.2) mg/dL Glucose 173 H 190 H (65-100) mg/dL Calcium 6.9 L 7.0 L (8.4-10.2) mg/dL
[2016-10-10] MEDS: NOVOLOG SUB-Q SCH ×4 (00:02→18:36)
[2016-10-10] MEDS: ZOFRAN IV PRN ×5 (00:31→22:26)
--- NOTE | 2016-10-10 03:20 | Consultation ---
INDICATION: Nausea and vomiting. HISTORY OF PRESENT ILLNESS: The patient is a 46-year-old female with history of diabetes with neuropathy, hypertension, CHF, who presented for the Emergency Room for nausea and vomiting. The patient reports nausea and vomiting for the past week or over the last couple of days. The patient reports symptoms started after she had an abscess that was drained in buttocks area. The patient reports no fevers or chills. She reported diarrhea, constipation, rectal bleeding. Denies any hematemesis. Denies any other specific problems or complaints. PAST MEDICAL HISTORY: 1. Diabetes. 2. Heart failure. 3. Hypertension 4. Status post ICD placement. 5. Breast surgery. MEDICATIONS: See chart. ALLERGIES: Sulfa and vancomycin. SOCIAL HISTORY: Positive smoker. FAMILY HISTORY: Negative for colon cancer, IBD, or liver disease. REVIEW OF SYSTEMS: GENERAL: Reports mild weakness. HEENT: No visual complaints or tinnitus. PULMONARY: Denies shortness of breath. CARDIOVASCULAR: No chest pain. GASTROINTESTINAL: Reports nausea and vomiting. All points of 13-point review of systems otherwise negative. PHYSICAL EXAMINATION: VITAL SIGNS: Temperature of 99.4, pulse 100, respirations 20, blood pressure 120/77. GENERAL: Fairly nourished female in no acute distress. HEENT: Pupils equal, round, reactive to light and accommodation. Extraocular muscles intact. PULMONARY: Clear to auscultation bilaterally. CARDIOVASCULAR: Regular rhythm. Normal S1, S2. ABDOMEN: Positive bowel sounds, soft. SKIN: No obvious rashes. LABORATORY DATA: Pertinent for white count of 10.5, hemoglobin and hematocrit of 10.2 and 31.3, platelet count of 277. Chem-7 within normal limits. ASSESSMENT AND PLAN: A 46-year-old female with a history of diabetes with neuropathy, congestive heart failure, presented with now weeks of nausea, vomiting, worse over the last few days and continued while in the hospital. The patient reports she also has a history of dumping syndrome, but it is unclear how the diagnosis was made. The patient h/o diabetes suggest possible gastroparesis. Management as noted below. PLAN: 1. Antireflux diet. We will avoid any NSAIDs and aspirin. 2. Continue PPI daily. 3. Continue antiemetics as ordered. 4. EGD in a.m. 5. Consider gastric emptying study. 6. We will follow, further recommendation based on progress and results of the above. JOB# [id number] LUC/CHICO PEÑALOZA
[2016-10-10] MEDS: NS/KCL 20MEQ 20 MEQ/1,000 ML BAG IV SCH (03:44)
[2016-10-10 05:48] LABS: Anion Gap 18 mmol/L; Blood Urea Nitrogen 3 mg/dL (7-17); Calcium 6.7 mg/dL (8.4-10.2); Carbon Dioxide 25 mmol/L (22-30); Glucose 128 mg/dL (65-100); Potassium 3.6 mmol/L (3.6-5.0); Sodium 138 mmol/L (137-145)
[2016-10-10] MEDS: HEPARIN SUB-Q SCH ×3 (05:56→22:07)
[2016-10-10] MEDS: NORCO 5/325 PO PRN (06:06)
--- NOTE | 2016-10-10 12:15 | Progress Note ---
Assessment and Plan Syncope is likely vasovagal or due to dehydration following 2 weeks of persistent nausea vomiting Hx of Nonischemic cardiomyopathy Presence of cardiac defibrillator in situ interrogation of her ICD was negative GI workup in progress. Conservative cardiac management. Subjective Date of service: 10/10/16 Interval history: Patient has no chest pain or shortness of breath. Awaits GI endoscopy today. Objective Vital Signs Temp Pulse Pulse Resp BP Pulse Ox 10/10/16 08:00 98.4 F 104 H 18 147/82 96 10/10/16 06:06 18 10/09/16 23:12 98.1 F 97 H 18 136/81 97 10/09/16 22:00 18 10/09/16 15:00 98.4 F 100 H 20 128/77 - Physical Examination General: No Apparent Distress HEENT: Positive: PERRL Neck: Positive: neck supple. Negative: JVD/HJR Cardiac: Positive: Other (paced) Lungs: Positive: Decreased Breath Sounds Neuro: Positive: Grossly Intact Extremities: Absent: edema - Labs and Meds Comprehensive Metabolic Panel 10/10/16 Range/Units 04:35 Sodium 138 (137-145) mmol/L Potassium 3.6 (3.6-5.0) mmol/L Chloride 99.0 (98-107) mmol/L Carbon Dioxide 25 (22-30) mmol/L BUN 3 L (7-17) mg/dL Creatinine 0.4 L (0.7-1.2) mg/dL Glucose 128 H (65-100) mg/dL Calcium 6.7 L (8.4-10.2) mg/dL
--- NOTE | 2016-10-10 12:41 | Progress Note ---
Assessment and Plan Assessment and plan: Intractable nausea,vomiting, diarrhea. On iv fluids, Zofran iv prn. Gastroparesis vs acute gastroenteritis. EGD this morning. Diabetes mellitus type II. Continue fingerstick glucose before every meal and at bedtime Hypokalemiaia. Hypomagnesemia . Replaced. Hypertension. Blood pressure stable DVT prophylaxis with Heparin. Full code History Interval history: Patient still complains nausea and vomiting. Zofran didn't help her much. Hospitalist Physical - Physical exam Narrative exam: Not in cardiopulmonary distress. The patient appeared well nourished and normally developed. Vital signs as documented. Head exam is unremarkable. No scleral icterus . Neck is without jugular venous distension, thyromegaly, or carotid bruits. Lungs are clear to auscultation. Cardiac exam reveals regular rate and Rhythm. First and second heart sounds normal. No murmurs, rubs or gallops. Abdominal exam reveals normal bowel sounds, no masses, no organomegaly and no aortic enlargement. Extremities are nonedematous and both femoral and pedal pulses are normal. 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 No focal weakness. - Constitutional Vitals: Temp Pulse Resp BP Pulse Ox 98.4 F 104 H 18 147/82 96 10/10/16 08:00 10/10/16 08:00 10/10/16 08:00 10/10/16 08:00 10/10/16 08:00 General appearance: Present: no acute distress Results - Labs CBC & Chem 7: 10/08/16 10:01 10/10/16 04:35 Labs: Laboratory Last Values WBC 10.5 K/mm3 (4.5-11.0) 10/08/16 10:01 RBC 3.63 M/mm3 (3.65-5.03) L 10/08/16 10:01 Hgb 10.2 gm/dl (10.1-14.3) 10/08/16 10:01 Hct 31.2 % (30.3-42.9) 10/08/16 10:01 MCV 86 fl (79-97) 10/08/16 10:01 MCH 28 pg (28-32) 10/08/16 10:01 MCHC 33 % (30-34) 10/08/16 10:01 RDW 14.5 % (13.2-15.2) 10/08/16 10:01 Plt Count 277 K/mm3 (140-440) 10/08/16 10:01 Lymph % (Auto) 14.1 % (13.4-35.0) 10/07/16 10:34 [place] % (Auto) 9.2 % (0.0-7.3) H 10/07/16 10:34 Eos % (Auto) 0.2 % (0.0-4.3) 10/07/16 10:34 Baso % (Auto) 0.7 % (0.0-1.8) 10/07/16 10:34 Lymph # 1.6 K/mm3 (1.2-5.4) 10/07/16 10:34 [place] # 1.0 K/mm3 (0.0-0.8) H 10/07/16 10:34 Eos # 0.0 K/mm3 (0.0-0.4) 10/07/16 10:34 Baso # 0.1 K/mm3 (0.0-0.1) 10/07/16 10:34 Seg Neutrophils % 75.8 % (40.0-70.0) H 10/07/16 10:34 Seg Neutrophils # 8.6 K/mm3 (1.8-7.7) H 10/07/16 10:34 PT 18.2 Sec. (12.2-14.9) H 10/07/16 11:31 INR 1.51 (0.87-1.13) H 10/07/16 11:31 D-Dimer 187.08 ng/mlDDU (0-234) 10/07/16 11:31 Sodium 138 mmol/L (137-145) 10/10/16 04:35 Potassium 3.6 mmol/L (3.6-5.0) 10/10/16 04:35 Chloride 99.0 mmol/L (98-107) 10/10/16 04:35 Carbon Dioxide 25 mmol/L (22-30) 10/10/16 04:35 Anion Gap 18 mmol/L 10/10/16 04:35 BUN 3 mg/dL (7-17) L 10/10/16 04:35 Creatinine 0.4 mg/dL (0.7-1.2) L 10/10/16 04:35 Estimated GFR > 60 ml/min 10/10/16 04:35 BUN/Creatinine Ratio 7.50 % 10/10/16 04:35 Glucose 128 mg/dL (65-100) H 10/10/16 04:35 POC Glucose 136 (70-105) H 10/10/16 06:21 Calcium 6.7 mg/dL (8.4-10.2) L 10/10/16 04:35 Magnesium 1.5 mg/dL (1.7-2.3) L 10/09/16 05:19 Total Creatine Kinase 33 units/L (30-135) 10/07/16 11:26 Troponin T < 0.010 ng/mL (0.00-0.029) 10/07/16 11:26 HCG, Quant < 2 mIU/mL (0-4) 10/07/16 11:26 Urine Color Yellow (Yellow) 10/07/16 14:30 Urine Turbidity Clear (Clear) 10/07/16 14:30 Urine pH 6.0 (5.0-7.0) 10/07/16 14:30 Ur Specific [place] 1.017 (1.003-1.030) 10/07/16 14:30 Urine Protein 30 mg/dl mg/dL (Negative) 10/07/16 14:30 Urine Glucose (UA) 50 mg/dL (Negative) 10/07/16 14:30 Urine Ketones Neg mg/dL (Negative) 10/07/16 14:30 Urine Blood Neg (Negative) 10/07/16 14:30 Urine Nitrite Neg (Negative) 10/07/16 14:30 Urine Bilirubin Neg (Negative) 10/07/16 14:30 Urine Urobilinogen < 2.0 mg/dL (<2.0) 10/07/16 14:30 Ur Leukocyte Esterase Neg (Negative) 10/07/16 14:30 Urine WBC (Auto) 1.0 /HPF (0.0-6.0) 10/07/16 14:30 Urine RBC (Auto) 3.0 /HPF (0.0-6.0) 10/07/16 14:30 Urine Mucus Few /HPF 10/07/16 14:30 Urine HCG, Qual Negative (Negative) 10/07/16 14:30
[2016-10-10] MEDS ORDERED: MORPHINE IV PRN (12:51)
--- NOTE | 2016-10-10 14:55 | Anesthesia Day of Surgery ---
Anesthesia Day of Surgery - Day of Surgery Patient Examined: Yes Patient H&P Reviewed: Yes Patient is NPO: Yes
--- NOTE | 2016-10-10 14:55 | Anesthesia Consultation ---
Anesthesia Consult and Med Hx Date of service: 10/10/16 - Airway Anesthetic Teeth Evaluation: Dentures (upper and lower) ROM Head & Neck: Adequate Mental/Hyoid Distance: Adequate Mallampati Class: Class II Intubation Access Assessment: Probably Good - Pre-Operative Health Status ASA Pre-Surgery Classification: ASA3 Proposed Anesthetic Plan: MAC - Pulmonary Hx Smoking: Yes (1 pack/day x 20 years) Hx Asthma: No COPD: No Hx Pneumonia: No Hx Sleep Apnea: No - Cardiovascular System Hx Hypertension: Yes Hx Coronary Artery Disease: No Hx Heart Attack/AMI: No Hx Angina: No (h/o CHF, ischemic cardiomyopathy) Hx Percutaneous Transluminal Coronary Angioplasty (PTCA): No Hx Cardia Arrhythmia: Yes (H/O AFIB) Hx Pacemaker: Yes Hx Internal Defibrillator: Yes Hx Valvular Heart Disease: No Hx Heart Murmur: No Hx Peripheral Vascular Disease: No - Central Nervous System Hx Seizures: No CVA: No Hx Psychiatric Problems: Yes (anxiety disorder) - Gastrointestinal Hx Gastroesophageal Reflux Disease: Yes (persistent nausea and vomiting) - Endocrine Hx Renal Disease: No Hx End Stage Renal Disease: No Hx Liver Disease: No Hx Insulin Dependent Diabetes: Yes Hx Thyroid Disease: No Hx Hypothyroidism: No Hx Hyperthyroidism: No - Other Systems Hx Cancer: No Hx Obesity: No
[2016-10-10] MEDS: NACL 0.9% 1000 ML 1,000 ML IV SCH ×2 (15:06→19:43)
[2016-10-10] MEDS ORDERED: WATER FOR IRRIG STERILE IR ONE (15:36)
[2016-10-10] MEDS ORDERED: DIPRIVAN 10 MG/ML IV ONE (17:16)
--- NOTE | 2016-10-10 17:45 | Post Operative Note ---
Pre-op diagnosis: N/V, Hx of DM Post-op diagnosis: other (Esophagitis, Gastric polyp) Findings: 1. 3mm antrum polyp, cold bx, likely inflammatory 2. Small HH 3. Grade C erosive esophagitis, with possible joshua, mid/lower esophagus Procedure: EGD with cold bx Anesthesia: MAC Surgeon: MYA KEATING Estimated blood loss: minimal Pathology: list (1. Antrum polyp. 2. Random esophagus.) Specimen disposition: to lab Condition: stable Disposition: floor (Recs: 1. Advance to full liquid diet. 2. Empiric tx with diflucan x 5 days. 3. Daily protonix. 4. Advance diet as tolerated. 5. Likely DM gastroparesis; needs improved control of disease.)
[2016-10-10] MEDS ORDERED: NORCO 5/325 PO PRN (17:47)
[2016-10-10] MEDS: MORPHINE IV PRN (20:37)
[2016-10-10] MEDS: DIFLUCAN PO SCH ×2 (22:06→22:18)
[2016-10-10] MEDS: PROTONIX PO SCH ×2 (22:06→22:18)
[2016-10-11] MEDS: NOVOLOG SUB-Q SCH ×3 (04:21→12:27)
[2016-10-11] MEDS: ZOFRAN IV PRN (04:58)
[2016-10-11] MEDS: HEPARIN SUB-Q SCH ×2 (04:59→13:51)
[2016-10-11] MEDS: MORPHINE IV PRN (04:59)
[2016-10-11 05:45] LABS: Anion Gap 19 mmol/L; Blood Urea Nitrogen 4 mg/dL (7-17); Calcium 6.9 mg/dL (8.4-10.2); Carbon Dioxide 23 mmol/L (22-30); Chloride 99.7 mmol/L (98-107); Glucose 107 mg/dL (65-100); Potassium 3.2 mmol/L (3.6-5.0); Sodium 138 mmol/L (137-145)
--- NOTE | 2016-10-11 09:06 | Discharge Summary ---
Providers - Providers Date of Admission: 10/07/16 13:29 Date of discharge: 10/11/16 Attending physician: HAL MINA MD 10/07/16 18:40 Consult to Wound/ET Nurse [CONS] Routine Reason For Exam: wound eval 10/09/16 16:03 Consult to Physician [CONS] Routine Consulting Provider: MIRZA GRANDA Reason For Exam: nausea,vomiting,diarrhea Place consult to:: Dr. Judson Granda Notified:: office Phone number called:: [phone] Was contact made?: Yes If yes, spoke with:: connie Time called:: 16:07 Comment:: isaac notified Primary care physician: TRANSFER COORDINATOR Hospitalization Reason for admission: Intractable Nausea and vomiting Condition: Good Disposition: DISCHARGED TO HOME OR SELFCARE Time spent for discharge: 31 minutes - Discharge Diagnoses (1) Intractable nausea and vomiting Status: Acute Qualifiers: Vomiting type: V (2) Nausea and vomiting Status: Acute Qualifiers: Vomiting type: V Vomiting Intractability: V (3) Diabetes mellitus Status: Acute Qualifiers: Diabetes mellitus type: D Diabetes mellitus complication status: D Diabetes mellitus complication detail: D Diabetic retinopathy severity: D Proliferative retinopathy type: P Diabetes mellitus macular edema: D Diabetes mellitus manager long term care insulin use: D Laterality: L Chronic kidney disease stage: C Core Measure Documentation - Palliative Care Palliative Care/ Comfort Measures: Not Applicable - Core Measures Any of the following diagnoses?: none Exam - Physical Exam Narrative exam: Not in cardiopulmonary distress. The patient appeared well nourished and normally developed. Vital signs as documented. Head exam is unremarkable. No scleral icterus . Neck is without jugular venous distension, thyromegaly, or carotid bruits. Lungs are clear to auscultation. Cardiac exam reveals regular rate and Rhythm. First and second heart sounds normal. No murmurs, rubs or gallops. Abdominal exam reveals normal bowel sounds, no masses, no organomegaly and no aortic enlargement. Extremities are nonedematous and both femoral and pedal pulses are normal. 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 No focal weakness. - Constitutional Vitals: Temp Pulse Resp BP Pulse Ox 98.7 F 104 H 18 182/89 95 10/11/16 08:24 10/11/16 08:24 10/11/16 08:24 10/11/16 08:24 10/11/16 08:24 Plan Activity: no restrictions Weight Bearing Status: Full Weight Bearing Diet: low cholesterol, diabetic Follow up with: MYA KEATING MD [Staff Physician] - 7 Days PRIMARY CARE, [Primary Care Provider] - 10 Days Prescriptions: Fluconazole [Diflucan TAB] 100 mg PO QDAY #4 tablet HYDROcodone/APAP 5-325 [[place] 5-325 mg TAB] 1 each PO Q12H PRN #10 tablet PRN Reason: Pain, Moderate (4-6) Ondansetron [Zofran TAB] 4 mg PO Q8HR PRN #12 tablet PRN Reason: Nausea Pantoprazole [Protonix TAB] 40 mg PO QDAY #14 tablet
[2016-10-11] MEDS: PROTONIX PO SCH (09:46)
[2016-10-11] MEDS: DIFLUCAN PO SCH (09:46)
--- NOTE | 2016-10-11 10:50 | Progress Note ---
Assessment and Plan Syncope is likely vasovagal or due to dehydration following 2 weeks of persistent nausea vomiting EGD reports erosive esophagitis, with possible joshua Hx of Nonischemic cardiomyopathy Presence of cardiac defibrillator in situ interrogation of her ICD was negative Plan: Conservative cardiac management. Subjective Date of service: 10/11/16 Interval history: No cardiac events. Objective Vital Signs Temp Pulse Pulse Resp Resp BP BP 10/11/16 08:24 98.7 F 104 H 18 182/89 10/11/16 04:59 18 10/10/16 23:04 99.4 F 104 H 20 147/81 10/10/16 22:00 18 18 10/10/16 20:37 18 10/10/16 18:26 99 F 105 H 18 126/76 10/10/16 18:09 105 H 17 120/75 10/10/16 17:53 107 H 18 118/76 10/10/16 17:43 98.6 F 105 H 16 98/65 10/10/16 15:02 98.8 F 109 H 15 115/80 10/10/16 14:56 98.8 F 109 H 15 115/80 Pulse Ox 10/11/16 08:24 95 10/11/16 04:59 10/10/16 23:04 97 10/10/16 22:00 10/10/16 20:37 10/10/16 18:26 96 10/10/16 18:09 96 10/10/16 17:53 99 10/10/16 17:43 95 10/10/16 15:02 96 10/10/16 14:56 96 - Physical Examination General: No Apparent Distress HEENT: Positive: PERRL Neck: Positive: neck supple. Negative: JVD/HJR Cardiac: Positive: Reg Rate and Rhythm Lungs: Positive: Decreased Breath Sounds Neuro: Positive: Grossly Intact Extremities: Absent: edema - Labs and Meds Comprehensive Metabolic Panel 10/11/16 Range/Units 04:21 Sodium 138 (137-145) mmol/L Potassium 3.2 L (3.6-5.0) mmol/L Chloride 99.7 (98-107) mmol/L Carbon Dioxide 23 (22-30) mmol/L BUN 4 L (7-17) mg/dL Creatinine 0.4 L (0.7-1.2) mg/dL Glucose 107 H (65-100) mg/dL Calcium 6.9 L (8.4-10.2) mg/dL
--- NOTE | 2016-10-11 14:33 | Gastroenterology Progress Note ---
Assessment and Plan HI: stable s/p egd - advance diet as tolerated - ok to d/c from GI standpoint, will sign off, call if needed Subjective Date of service: 10/11/16 Interval history: - reports feeling better, tolerating po, wants to go home Objective - Constitutional Vitals: Temp Pulse Resp BP Pulse Ox 98.7 F 100 H 18 160/85 95 10/11/16 08:24 10/11/16 11:37 10/11/16 08:24 10/11/16 11:37 10/11/16 08:24 General appearance: no acute distress - EENT ENT: hearing intact - Respiratory Respiratory: negative: CTA - Cardiovascular Rhythm: regular Heart Sounds: Present: S1 & S2 - Gastrointestinal General gastrointestinal: Present: soft, non-tender, non-distended - Labs CBC & Chem 7: 10/08/16 10:01 10/11/16 04:21 Labs: Laboratory Results - last 24 hr 10/11/16 04:21 Sodium 138 Potassium 3.2 L Chloride 99.7 Carbon Dioxide 23 Anion Gap 19 BUN 4 L Creatinine 0.4 L Estimated GFR > 60 BUN/Creatinine Ratio 10.00 Glucose 107 H Calcium 6.9 L
[2016-10-11 15:24] VITALS: BP 138/84
== END 2016-10-11 14:55 | disposition home or self-care (01) | DRG 381 ==
LOC: ED 09:18 → 3A 13:29
PROVIDERS: ADMIT Internal Medicine; ATTEND Internal Medicine
PROC: 0DB68ZX Excision of Stomach, Via Natural or Artificial Opening Endoscopic, Diagnostic (ICD-10-PCS; principal; 2016-10-10)
DX: K22.10 Ulcer of esophagus without bleeding (principal); R65.10 Systemic inflammatory response syndrome (SIRS) of non-infectious origin without acute organ dysfunction; I42.0 Dilated cardiomyopathy; I11.0 Hypertensive heart disease with heart failure; E11.40 Type 2 diabetes mellitus with diabetic neuropathy, unspecified; E87.6 Hypokalemia; I50.9 Heart failure, unspecified; E11.43 Type 2 diabetes mellitus with diabetic autonomic (poly)neuropathy; K31.84 Gastroparesis; E86.0 Dehydration; F17.210 Nicotine dependence, cigarettes, uncomplicated; I95.1 Orthostatic hypotension; K21.9 Gastro-esophageal reflux disease without esophagitis; E83.42 Hypomagnesemia; Z88.1 Allergy status to other antibiotic agents; Z88.2 Allergy status to sulfonamides; Z95.810 Presence of automatic (implantable) cardiac defibrillator; Z83.3 Family history of diabetes mellitus; Z82.49 Family history of ischemic heart disease and other diseases of the circulatory system
CPT/HCPCS: 36415; 70450; 71010; 80048; 81001; 81025; 82550; 82962; 83735; 84484; 84702; 85025; 85027; 85379; 85610; 87045; 87493; 88305; 88312; 88342; 93005; 93010; 96365; 96375; J1644; J1815; J2270; J2405; J2704; J3475; J3480; J7030; J7050

== ENCOUNTER 2016-10-25 22:19 | Emergency (ER) | payer SELFPAY ==
[2016-10-25] MEDS ORDERED: NACL 0.9% 1000 ML 1,000 ML IV ONE (23:13)
[2016-10-25] MEDS ORDERED: ZOFRAN IV ONE (23:13)
--- NOTE | 2016-10-25 23:19 | Emergency Department Report ---
- General Chief complaint: Weakness Stated complaint: NAUSEA AND VOMITING, SYNCOPAL EPISODE Time Seen by Provider: 10/25/16 22:52 Source: patient, EMS Mode of arrival: Stretcher Limitations: Physical Limitation - History of Present Illness Initial comments: Patient is a 46-year-old female with a history of diabetes, hypertension, CAD, kidney insufficiency presenting to the ER today for weakness, vomiting, syncopal episode. Patient reports she had 2 abscesses surgically opened at the end of September and ever since then she has been nauseous and vomiting every day. Patient reports she was diagnosed with gastroparesis and is following with her primary care. Patient now reports a worsening in her weakness and while interviewing to the bathroom today she felt lightheaded and then had a syncopal episode. She reports this is happened in the past. Otherwise no fevers, chills , chest pain, shortness of breath, trauma, travel, or sick contacts. MD Complaint: generalized weakness, lack of energy -: Gradual Location: generalized - Related Data Home Medications Medication Instructions Recorded Confirmed Last Taken metFORMIN [Glucophage] 1,000 mg PO BID 07/31/14 10/07/16 02/07/16 PARoxetine [Paxil] 40 mg PO DAILY 11/29/15 10/07/16 02/07/16 Previous Rx's Medication Instructions Recorded Last Taken Type Bacillus Coagulans [Probiotic] 1 each PO BID #30 capsule. 09/26/16 Unknown Rx Fluconazole [Diflucan TAB] 100 mg PO QDAY #4 tablet 10/11/16 Unknown Rx HYDROcodone/APAP 5-325 [[place] 1 each PO Q12H PRN #10 tablet 10/11/16 Unknown Rx 5-325 mg TAB] Ondansetron [Zofran TAB] 4 mg PO Q8HR PRN #12 tablet 10/11/16 Unknown Rx Pantoprazole [Protonix TAB] 40 mg PO QDAY #14 tablet 10/11/16 Unknown Rx Cephalexin [Keflex] 500 mg PO Q8HR 10 Days 10/26/16 Unknown Rx Famotidine [Pepcid] 20 mg PO BID #30 tablet 10/26/16 Unknown Rx Ondansetron [Zofran Odt] 4 mg PO Q8HR PRN #12 tab.rapdis 10/26/16 Unknown Rx Sucralfate [Carafate] 1 gm PO Q6HR #1 bottle 10/26/16 Unknown Rx Allergies Allergy/AdvReac Type Severity Reaction Status Date / Time Sulfa (Sulfonamide Allergy Anaphylaxis Verified 09/21/16 08:14 Antibiotics) vancomycin Allergy "SHUTS Verified 09/21/16 08:14 KIDNEYS DOWN" ED Review of Systems ROS: Stated complaint: NAUSEA AND VOMITING, SYNCOPAL EPISODE Other details as noted in HPI Comment: All other systems reviewed and negative ED Past Medical Hx - Past Medical History Hx Hypertension: Yes Hx Heart Attack/AMI: No Hx Congestive Heart Failure: Yes Hx Diabetes: Yes Hx Deep Vein Thrombosis: No Hx Pulmonary Embolism: No Hx Liver Disease: No Hx Renal Disease: No Hx Seizures: No Hx Asthma: No Hx COPD: No Hx Tuberculosis: No Hx HIV: No Additional medical history: pacemaker/defibrillator, chronic back pain, peripheral neuropathy - Surgical History Hx Coronary Stent: No Hx Open Heart Surgery: No Hx Pacemaker: Yes Hx Internal Defibrillator: Yes Hx Cholecystectomy: No Hx Appendectomy: No Hx Breast Surgery: Yes Additional Surgical History: breast surg x 2 - Social History Smoking Status: Former Smoker Substance Use Type: None - Medications Home Medications: Home Medications Medication Instructions Recorded Confirmed Last Taken Type metFORMIN [Glucophage] 1,000 mg PO BID 07/31/14 10/07/16 02/07/16 History PARoxetine [Paxil] 40 mg PO DAILY 11/29/15 10/07/16 02/07/16 History Bacillus Coagulans [Probiotic] 1 each PO BID #30 capsule. 09/26/16 10/07/16 Unknown Rx Fluconazole [Diflucan TAB] 100 mg PO QDAY #4 tablet 10/11/16 Unknown Rx HYDROcodone/APAP 5-325 [[place] 1 each PO Q12H PRN #10 tablet 10/11/16 Unknown Rx 5-325 mg TAB] Ondansetron [Zofran TAB] 4 mg PO Q8HR PRN #12 tablet 10/11/16 Unknown Rx Pantoprazole [Protonix TAB] 40 mg PO QDAY #14 tablet 10/11/16 Unknown Rx Cephalexin [Keflex] 500 mg PO Q8HR 10 Days 10/26/16 Unknown Rx Famotidine [Pepcid] 20 mg PO BID #30 tablet 10/26/16 Unknown Rx Ondansetron [Zofran Odt] 4 mg PO Q8HR PRN #12 tab.rapdis 10/26/16 Unknown Rx Sucralfate [Carafate] 1 gm PO Q6HR #1 bottle 10/26/16 Unknown Rx ED Physical Exam - General Limitations: Physical Limitation General appearance: alert, in no apparent distress - Head Head exam: Present: atraumatic, normocephalic - Eye Eye exam: Present: normal appearance - ENT ENT exam: Present: mucous membranes moist - Neck Neck exam: Present: normal inspection - Respiratory Respiratory exam: Present: normal lung sounds bilaterally. Absent: respiratory distress - Cardiovascular Cardiovascular Exam: Present: tachycardia, normal heart sounds. Absent: irregular rhythm, systolic murmur, diastolic murmur, rubs, gallop - GI/Abdominal GI/Abdominal exam: Present: soft, tenderness (mild diffuse tenderness), normal bowel sounds. Absent: distended, guarding, rebound, rigid, hyperactive bowel sounds, pulsatile mass, hernia - Rectal Rectal exam: Present: normal rectal tone - External exam: Present: other (two draining surgical incisions. Purulent foul smelling green fluid from both abscess locations) - Extremities Exam Extremities exam: Present: normal inspection, normal capillary refill. Absent: tenderness, pedal edema - Back Exam Back exam: Present: normal inspection - Neurological Exam Neurological exam: Present: alert, oriented X3 - Psychiatric Psychiatric exam: Present: normal affect, normal mood - Skin Skin exam: Present: warm, dry, intact, normal color. Absent: rash ED Course Vital Signs 10/25/16 10/25/16 10/25/16 22:59 23:00 23:04 Temperature 97.5 F L Pulse Rate 152 H 115 H 112 H Respiratory 14 11 L Rate Blood Pressure 136/84 103/75 103/75 O2 Sat by Pulse 93 99 Oximetry 10/26/16 10/26/16 10/26/16 00:00 00:22 00:29 Temperature Pulse Rate 105 H Respiratory 9 L 20 20 Rate Blood Pressure 104/71 O2 Sat by Pulse 99 100 Oximetry 10/26/16 10/26/16 10/26/16 01:01 02:01 03:00 Temperature Pulse Rate 95 H 100 H 93 H Respiratory 11 L 11 L 9 L Rate Blood Pressure 104/71 104/71 102/60 O2 Sat by Pulse 100 99 99 Oximetry 10/26/16 03:30 Temperature Pulse Rate Respiratory 20 Rate Blood Pressure O2 Sat by Pulse Oximetry - I & D Right Buttocks Blade Size: Patient already had incised sites I & D Procedure: gauze wick placed Progress: Patient had iodoform placed and dry dressings ED Medical Decision Making - Lab Data Result diagrams: 10/26/16 00:06 10/26/16 00:06 - EKG Data -: EKG Interpreted by Me (2326 V paced rhythm) EKG shows normal: sinus rhythm, axis (LAD), ST-T waves ((-)ST T changes, no STEMI) Rate: tachycardia (106 bpm) - Radiology Data Radiology results: report reviewed There is no evidence of intestinal or urinary tract obstruction no ileus or enteritis. The appendix is normal there is thickening of the gastric wall involving the fundus in the body of the stomach, gastritis is possible. Further differentiation with endoscopy may be of benefit. - Medical Decision Making Medical records reviewed in patient's chart. Patient had extensive GI workup here thoughts for gastroparesis, patient to follow up as outpatient. Patient also had a endoscopy done and found to have erosive esophagitis and severe gastritis. I discussed this with the patient and she reports she is not currently on any medication for it. Critical care attestation.: If time is entered above; I have spent that time in minutes in the direct care of this critically ill patient, excluding procedure time. ED Disposition Clinical Impression: Abdominal pain, Gastritis, Abscess Disposition: DISCHARGED TO HOME OR SELFCARE Is pt being admited?: No Condition: Stable Instructions: Gastritis (ED), Abscess Incision and Drainage (ED), Abdominal Pain (ED) Prescriptions: Cephalexin [Keflex] 500 mg PO Q8HR 10 Days Famotidine [Pepcid] 20 mg PO BID #30 tablet Ondansetron [Zofran Odt] 4 mg PO Q8HR PRN #12 tab.rapdis PRN Reason: Nausea Sucralfate [Carafate] 1 gm PO Q6HR #1 bottle Referrals: PRIMARY CARE,MD [Primary Care Provider] - 3-5 Days
[2016-10-25] MEDS ORDERED: MORPHINE ONE (23:57)
[2016-10-26] MEDS: ZOSYN/NS 3.375GM/50ML 3.375 GM/50 ML BAG IV SCH ×2 (00:20→07:15)
[2016-10-26] MEDS ORDERED: MORPHINE IV ONE (00:21)
[2016-10-26 00:39] LABS: Basophils % (Auto) 0.2 % (0.0-1.8); Eosinophils % (Auto) 0.2 % (0.0-4.3); Hematocrit 26.5 % (30.3-42.9); Hemoglobin 8.8 gm/dl (10.1-14.3); Mean Corpuscular HGB Conc 33 % (30-34); Mean Corpuscular Hemoglobin 28 pg (28-32); Mean Corpuscular Volume 85 fl (79-97); Platelet Count 296 K/mm3 (140-440); Red Blood Count 3.12 M/mm3 (3.65-5.03); Red Cell Distribution Width 15.4 % (13.2-15.2); White Blood Count 15.8 K/mm3 (4.5-11.0)
[2016-10-26 00:40] LABS: Anion Gap 21 mmol/L; Blood Urea Nitrogen 19 mg/dL (7-17); Calcium 8.2 mg/dL (8.4-10.2); Carbon Dioxide 27 mmol/L (22-30); Chloride 90.4 mmol/L (98-107); Glucose 164 mg/dL (65-100); Sodium 135 mmol/L (137-145)
[2016-10-26 00:44] LABS: Albumin 2.6 g/dL (3.9-5); Albumin/Globulin Ratio 0.7 %; Bilirubin,Direct 0.3 mg/dL (0-0.2); Bilirubin,Indirect 0.6 mg/dL; Bilirubin,Total 0.9 mg/dL (0.1-1.2); Total Protein 6.2 g/dL (6.3-8.2)
[2016-10-26 00:52] LABS: INR 1.67 (0.87-1.13)
[2016-10-26 01:41] LABS: Potassium 2.9 mmol/L (3.6-5.0)
[2016-10-26] MEDS ORDERED: K-DUR PO ONE (01:42)
[2016-10-26] MEDS ORDERED: NACL 0.9% 500 ML 500 ML ONE (01:48)
[2016-10-26] MEDS: KCL 10MEQ/100ML 10 MEQ/100 ML BAG IV SCH ×4 (02:23→06:07)
[2016-10-26 02:48] LABS: Bilirubin,Urine MOD (Negative); Blood,Urine NEG (Negative); Granular Casts,Urine 1 /LPF; Ketones,Urine NEG (Negative); Leukocyte Esterase,Urine NEG (Negative); Mucus,Urine FEW /HPF; Nitrite,Urine NEG (Negative)
[2016-10-26] MEDS ORDERED: TORADOL IV ONE (02:52)
[2016-10-26] MEDS ORDERED: NACL ONE (03:13)
--- NOTE | 2016-10-26 04:06 | Cat Scan Report ---
FINAL REPORT PROCEDURE: CT ABDOMEN PELVIS W CON TECHNIQUE: Computerized axial tomography of the abdomen and pelvis was performed after the IV injection of iodinated nonionic contrast. HISTORY: Abdominal Pain COMPARISON: 09/01/2013 FINDINGS: Visualized lower thorax: No significant abnormality. Liver: Normal size and attenuation. Spleen: Normal size and attenuation. Gallbladder and biliary system: Normal. Pancreas: Normal. Adrenals: Normal. Kidneys: Both kidneys have normal size. No hydronephrosis. No hydroureter. No renal stones. Small 5 millimeter area of hypoattenuation off the medial right renal cortex most consistent with a cyst.. GI tract: There is thickening of the gastric wall involving the fundus and body of the stomach. Gastritis is suspected.. The small bowel has a normal caliber. No obstruction, ileus or enteritis. The cecum, appendix and colon are normal.. Lymph nodes and mesentery: Normal. Vasculature: Normal. Bladder: Normal. Reproductive organs: Normal. Peritoneum: No free fluid. Musculoskeletal structures: No significant abnormality. Other: None. IMPRESSION: There is no evidence of intestinal or urinary tract obstruction. No ileus or enteritis. The appendix is normal. There is thickening of the gastric wall involving the fundus and body of the stomach, gastritis is possible. Further differentiation with endoscopy may be of benefit.
[2016-10-26 08:01] VITALS: BP 96/77
== END 2016-10-26 08:00 | disposition home or self-care (01) ==
LOC: ED 22:19
DX: K29.70 Gastritis, unspecified, without bleeding (principal); R10.84 Generalized abdominal pain; L02.31 Cutaneous abscess of buttock; I10 Essential (primary) hypertension; E11.9 Type 2 diabetes mellitus without complications; I50.9 Heart failure, unspecified; Z95.810 Presence of automatic (implantable) cardiac defibrillator; Z95.818 Presence of other cardiac implants and grafts; G89.29 Other chronic pain; Z88.2 Allergy status to sulfonamides; Z88.8 Allergy status to other drugs, medicaments and biological substances
CPT/HCPCS: 36415; 74177; 80048; 80074; 81001; 81025; 83690; 85025; 85610; 87040; 87116; 93005; 93010; 96361; 96365; 96375; 99285; J1885; J2270; J2405; J2543; J3480; J7030; J7040; Q9967; 87076; 87186

== ENCOUNTER 2016-11-03 21:48 | Inpatient (IN) | payer OTHER ==
[2016-11-03] MEDS ORDERED: NACL 0.9% 500 ML 500 ML IV ONE (22:15)
[2016-11-03 22:48] LABS: Basophils % (Auto) 0.6 % (0.0-1.8); Eosinophils % (Auto) 0.3 % (0.0-4.3); Hematocrit 26.3 % (30.3-42.9); Hemoglobin 8.5 gm/dl (10.1-14.3); Mean Corpuscular HGB Conc 32 % (30-34); Mean Corpuscular Hemoglobin 28 pg (28-32); Mean Corpuscular Volume 86 fl (79-97); Red Blood Count 3.05 M/mm3 (3.65-5.03); Red Cell Distribution Width 16.1 % (13.2-15.2)
[2016-11-03 22:49] LABS: Platelet Count 227 K/mm3 (140-440)
[2016-11-03 22:58] LABS: INR 1.47 (0.87-1.13)
[2016-11-03 23:05] LABS: Urine Drugs of Abuse Note Disclamer
[2016-11-03 23:11] LABS: Alanine Aminotransferase 8 units/L (7-56); Albumin 2.8 g/dL (3.9-5); Albumin/Globulin Ratio 0.7 %; Alkaline Phosphatase 125 units/L (35-129); Anion Gap 26 mmol/L; Blood Urea Nitrogen 16 mg/dL (7-17); Calcium 8.8 mg/dL (8.4-10.2); Carbon Dioxide 24 mmol/L (22-30); Chloride 94.8 mmol/L (98-107); Glucose 170 mg/dL (65-100); Sodium 142 mmol/L (137-145); Total Protein 6.8 g/dL (6.3-8.2)
[2016-11-03 23:16] LABS: Bacteria,Urine 1+ /HPF (Negative); Bilirubin,Urine SM (Negative); Blood,Urine NEG (Negative); Ketones,Urine TR mg/dL (Negative); Leukocyte Esterase,Urine NEG (Negative); Nitrite,Urine NEG (Negative); WBC,Urine < 1.0 /HPF (0.0-6.0)
[2016-11-03 23:21] LABS: Potassium 2.8 mmol/L (3.6-5.0)
[2016-11-03] MEDS ORDERED: MAGNESIUM SULFATE 2GM/50ML 2 GM/50 ML BAG IV ONE (23:30)
--- NOTE | 2016-11-03 23:48 | Emergency Department Report ---
ED Altered Mental Status HPI - General Chief Complaint: Altered Mental Status Stated Complaint: AMS Time Seen by Provider: 11/03/16 22:47 Source: EMS Mode of arrival: Stretcher Limitations: Altered Mental Status - History of Present Illness Initial Comments: 46-year-old female presents to the emergency department for evaluation of altered mental status. Patient is complaining of nausea, vomiting, and diarrhea for the past 12 days. She states her symptoms started after she had a cyst removed from her left buttock. She is complaining of neck pain and abdominal pain. There are no other complaints. MD Complaint: confusion -: unknown Severity: mild Consistency of Symptoms: constant Context: unknown Associated Symptoms: nausea/vomiting - Related Data Home Medications Medication Instructions Recorded Confirmed Last Taken metFORMIN [Glucophage] 1,000 mg PO BID 07/31/14 10/07/16 02/07/16 PARoxetine [Paxil] 40 mg PO DAILY 11/29/15 10/07/16 02/07/16 Previous Rx's Medication Instructions Recorded Last Taken Type Bacillus Coagulans [Probiotic] 1 each PO BID #30 capsule. 09/26/16 Unknown Rx Fluconazole [Diflucan TAB] 100 mg PO QDAY #4 tablet 10/11/16 Unknown Rx HYDROcodone/APAP 5-325 [[place] 1 each PO Q12H PRN #10 tablet 10/11/16 Unknown Rx 5-325 mg TAB] Ondansetron [Zofran TAB] 4 mg PO Q8HR PRN #12 tablet 10/11/16 Unknown Rx Pantoprazole [Protonix TAB] 40 mg PO QDAY #14 tablet 10/11/16 Unknown Rx Cephalexin [Keflex] 500 mg PO Q8HR 10 Days 10/26/16 Unknown Rx Famotidine [Pepcid] 20 mg PO BID #30 tablet 10/26/16 Unknown Rx Ondansetron [Zofran Odt] 4 mg PO Q8HR PRN #12 tab.rapdis 10/26/16 Unknown Rx Sucralfate [Carafate] 1 gm PO Q6HR #1 bottle 10/26/16 Unknown Rx Allergies Allergy/AdvReac Type Severity Reaction Status Date / Time Sulfa (Sulfonamide Allergy Anaphylaxis Verified 09/21/16 08:14 Antibiotics) vancomycin Allergy "SHUTS Verified 09/21/16 08:14 KIDNEYS DOWN" ED Review of Systems ROS: Stated complaint: AMS Other details as noted in HPI Comment: All other systems reviewed and negative Gastrointestinal: abdominal pain, nausea, vomiting, diarrhea Musculoskeletal: back pain ED Past Medical Hx - Past Medical History Previous Medical History?: Yes Hx Hypertension: Yes Hx Heart Attack/AMI: No Hx Congestive Heart Failure: Yes Hx Diabetes: Yes Hx Deep Vein Thrombosis: No Hx Pulmonary Embolism: No Hx Liver Disease: No Hx Renal Disease: No Hx Seizures: No Hx Asthma: No Hx COPD: No Hx Tuberculosis: No Hx HIV: No Additional medical history: pacemaker/defibrillator, chronic back pain, peripheral neuropathy - Surgical History Past Surgical History?: Yes Hx Coronary Stent: No Hx Open Heart Surgery: No Hx Pacemaker: Yes Hx Internal Defibrillator: Yes Hx Cholecystectomy: No Hx Appendectomy: No Hx Breast Surgery: Yes Additional Surgical History: breast surg x 2 - Family History Family history: no significant - Social History Smoking Status: Current Every Day Smoker Substance Use Type: None - Medications Home Medications: Home Medications Medication Instructions Recorded Confirmed Last Taken Type metFORMIN [Glucophage] 1,000 mg PO BID 07/31/14 10/07/16 02/07/16 History PARoxetine [Paxil] 40 mg PO DAILY 11/29/15 10/07/16 02/07/16 History Bacillus Coagulans [Probiotic] 1 each PO BID #30 capsule. 09/26/16 10/07/16 Unknown Rx Fluconazole [Diflucan TAB] 100 mg PO QDAY #4 tablet 10/11/16 Unknown Rx HYDROcodone/APAP 5-325 [[place] 1 each PO Q12H PRN #10 tablet 10/11/16 Unknown Rx 5-325 mg TAB] Ondansetron [Zofran TAB] 4 mg PO Q8HR PRN #12 tablet 10/11/16 Unknown Rx Pantoprazole [Protonix TAB] 40 mg PO QDAY #14 tablet 10/11/16 Unknown Rx Cephalexin [Keflex] 500 mg PO Q8HR 10 Days 10/26/16 Unknown Rx Famotidine [Pepcid] 20 mg PO BID #30 tablet 10/26/16 Unknown Rx Ondansetron [Zofran Odt] 4 mg PO Q8HR PRN #12 tab.rapdis 10/26/16 Unknown Rx Sucralfate [Carafate] 1 gm PO Q6HR #1 bottle 10/26/16 Unknown Rx ED Physical Exam - General Limitations: Altered Mental Status General appearance: alert, in no apparent distress - Head Head exam: Present: atraumatic, normocephalic - Eye Eye exam: Present: normal appearance, PERRL, EOMI - ENT ENT exam: Present: normal exam, normal orophraynx, mucous membranes dry - Neck Neck exam: Present: normal inspection, full ROM. Absent: tenderness - Respiratory Respiratory exam: Present: normal lung sounds bilaterally. Absent: respiratory distress - Cardiovascular Cardiovascular Exam: Present: normal rhythm, tachycardia, normal heart sounds - GI/Abdominal GI/Abdominal exam: Present: soft, tenderness (mild generalized tenderness to palpation), normal bowel sounds. Absent: distended, guarding, rebound - Extremities Exam Extremities exam: Present: normal inspection, full ROM. Absent: tenderness - Back Exam Back exam: Present: normal inspection, full ROM. Absent: tenderness - Neurological Exam Neurological exam: Present: alert, oriented X3, other (patient is slow to respond to questions. Her memory appears to be slightly impaired. For example , when asked about past medical history the patient's only response was " dumping syndrome".) - Skin Skin exam: Present: warm, dry, other (open wound noted to the left buttock. Site is draining brownish, purulent material. Base of the wound appears clean without granulation tissue. There is no surrounding erythema.) ED Course Vital Signs 11/03/16 11/03/16 22:21 23:01 Temperature 98.2 F Pulse Rate 109 H Respiratory 14 14 Rate Blood Pressure 102/67 [Left] O2 Sat by Pulse 97 97 Oximetry - Lab Data Result diagrams: 11/03/16 22:25 11/03/16 22:25 Lab Results 11/03/16 11/03/16 11/03/16 Range/Units 22:25 22:25 22:25 WBC 12.0 H (4.5-11.0) K/mm3 RBC 3.05 L (3.65-5.03) M/mm3 Hgb 8.5 L (10.1-14.3) gm/dl Hct 26.3 L (30.3-42.9) % MCV 86 (79-97) fl MCH 28 (28-32) pg MCHC 32 (30-34) % RDW 16.1 H (13.2-15.2) % Plt Count 227 (140-440) K/mm3 Lymph % (Auto) 22.6 (13.4-35.0) % Andrews % (Auto) 5.3 (0.0-7.3) % Eos % (Auto) 0.3 (0.0-4.3) % Baso % (Auto) 0.6 (0.0-1.8) % Lymph # 2.7 (1.2-5.4) K/mm3 Andrews # 0.6 (0.0-0.8) K/mm3 Eos # 0.0 (0.0-0.4) K/mm3 Baso # 0.1 (0.0-0.1) K/mm3 Seg Neutrophils % 71.2 H (40.0-70.0) % Seg Neutrophils # 8.5 H (1.8-7.7) K/mm3 PT 17.8 H (12.2-14.9) Sec. INR 1.47 H (0.87-1.13) VBG pH (7.320-7.420) Sodium 142 (137-145) mmol/L Potassium 2.8 L* (3.6-5.0) mmol/L Chloride 94.8 L (98-107) mmol/L Carbon Dioxide 24 (22-30) mmol/L Anion Gap 26 mmol/L BUN 16 (7-17) mg/dL Creatinine 0.5 L (0.7-1.2) mg/dL Estimated GFR > 60 ml/min BUN/Creatinine Ratio 32.00 % Glucose 170 H (65-100) mg/dL Lactic Acid (0.7-2.0) mmol/L Calcium 8.8 (8.4-10.2) mg/dL Magnesium 1.60 L (1.7-2.3) mg/dL Total Bilirubin 1.50 H (0.1-1.2) mg/dL AST 9 (5-40) units/L ALT 8 (7-56) units/L Alkaline Phosphatase 125 (35-129) units/L Total Protein 6.8 (6.3-8.2) g/dL Albumin 2.8 L (3.9-5) g/dL Albumin/Globulin Ratio 0.7 % TSH (0.270-4.200) mlU/mL Urine Color (Yellow) Urine Turbidity (Clear) Urine pH (5.0-7.0) Ur Specific [place] (1.003-1.030) Urine Protein (Negative) mg/dL Urine Glucose (UA) (Negative) mg/dL Urine Ketones (Negative) mg/dL Urine Blood (Negative) Urine Nitrite (Negative) Urine Bilirubin (Negative) Urine Ictotest (Negative) Urine Urobilinogen (<2.0) mg/dL Ur Leukocyte Esterase (Negative) Urine WBC (Auto) (0.0-6.0) /HPF Urine RBC (Auto) (0.0-6.0) /HPF Urine Bacteria (Auto) (Negative) /HPF Urine Yeast (Budding) /HPF Urine HCG, Qual (Negative) Urine Opiates Screen Urine Methadone Screen Ur Barbiturates Screen Ur Phencyclidine Scrn Ur Amphetamines Screen U Benzodiazepines Scrn Urine Cocaine Screen U Marijuana (THC) Screen Drugs of Abuse Note 11/03/16 11/03/16 11/03/16 Range/Units 22:25 22:25 22:25 WBC (4.5-11.0) K/mm3 RBC (3.65-5.03) M/mm3 Hgb (10.1-14.3) gm/dl Hct (30.3-42.9) % MCV (79-97) fl MCH (28-32) pg MCHC (30-34) % RDW (13.2-15.2) % Plt Count (140-440) K/mm3 Lymph % (Auto) (13.4-35.0) % Andrews % (Auto) (0.0-7.3) % Eos % (Auto) (0.0-4.3) % Baso % (Auto) (0.0-1.8) % Lymph # (1.2-5.4) K/mm3 Andrews # (0.0-0.8) K/mm3 Eos # (0.0-0.4) K/mm3 Baso # (0.0-0.1) K/mm3 Seg Neutrophils % (40.0-70.0) % Seg Neutrophils # (1.8-7.7) K/mm3 PT (12.2-14.9) Sec. INR (0.87-1.13) VBG pH 7.438 H (7.320-7.420) Sodium (137-145) mmol/L Potassium (3.6-5.0) mmol/L Chloride (98-107) mmol/L Carbon Dioxide (22-30) mmol/L Anion Gap mmol/L BUN (7-17) mg/dL Creatinine (0.7-1.2) mg/dL Estimated GFR ml/min BUN/Creatinine Ratio % Glucose (65-100) mg/dL Lactic Acid 1.5 (0.7-2.0) mmol/L Calcium (8.4-10.2) mg/dL Magnesium (1.7-2.3) mg/dL Total Bilirubin (0.1-1.2) mg/dL AST (5-40) units/L ALT (7-56) units/L Alkaline Phosphatase (35-129) units/L Total Protein (6.3-8.2) g/dL Albumin (3.9-5) g/dL Albumin/Globulin Ratio % TSH 0.398 (0.270-4.200) mlU/mL Urine Color (Yellow) Urine Turbidity (Clear) Urine pH (5.0-7.0) Ur Specific [place] (1.003-1.030) Urine Protein (Negative) mg/dL Urine Glucose (UA) (Negative) mg/dL Urine Ketones (Negative) mg/dL Urine Blood (Negative) Urine Nitrite (Negative) Urine Bilirubin (Negative) Urine Ictotest (Negative) Urine Urobilinogen (<2.0) mg/dL Ur Leukocyte Esterase (Negative) Urine WBC (Auto) (0.0-6.0) /HPF Urine RBC (Auto) (0.0-6.0) /HPF Urine Bacteria (Auto) (Negative) /HPF Urine Yeast (Budding) /HPF Urine HCG, Qual (Negative) Urine Opiates Screen Urine Methadone Screen Ur Barbiturates Screen Ur Phencyclidine Scrn Ur Amphetamines Screen U Benzodiazepines Scrn Urine Cocaine Screen U Marijuana (THC) Screen Drugs of Abuse Note 11/03/16 11/03/16 Range/Units 22:59 22:59 WBC (4.5-11.0) K/mm3 RBC (3.65-5.03) M/mm3 Hgb (10.1-14.3) gm/dl Hct (30.3-42.9) % MCV (79-97) fl MCH (28-32) pg MCHC (30-34) % RDW (13.2-15.2) % Plt Count (140-440) K/mm3 Lymph % (Auto) (13.4-35.0) % Andrews % (Auto) (0.0-7.3) % Eos % (Auto) (0.0-4.3) % Baso % (Auto) (0.0-1.8) % Lymph # (1.2-5.4) K/mm3 Andrews # (0.0-0.8) K/mm3 Eos # (0.0-0.4) K/mm3 Baso # (0.0-0.1) K/mm3 Seg Neutrophils % (40.0-70.0) % Seg Neutrophils # (1.8-7.7) K/mm3 PT (12.2-14.9) Sec. INR (0.87-1.13) VBG pH (7.320-7.420) Sodium (137-145) mmol/L Potassium (3.6-5.0) mmol/L Chloride (98-107) mmol/L Carbon Dioxide (22-30) mmol/L Anion Gap mmol/L BUN (7-17) mg/dL Creatinine (0.7-1.2) mg/dL Estimated GFR ml/min BUN/Creatinine Ratio % Glucose (65-100) mg/dL Lactic Acid (0.7-2.0) mmol/L Calcium (8.4-10.2) mg/dL Magnesium (1.7-2.3) mg/dL Total Bilirubin (0.1-1.2) mg/dL AST (5-40) units/L ALT (7-56) units/L Alkaline Phosphatase (35-129) units/L Total Protein (6.3-8.2) g/dL Albumin (3.9-5) g/dL Albumin/Globulin Ratio % TSH (0.270-4.200) mlU/mL Urine Color [place] (Yellow) Urine Turbidity Clear (Clear) Urine pH 6.0 (5.0-7.0) Ur Specific [place] 1.023 (1.003-1.030) Urine Protein 30 mg/dl (Negative) mg/dL Urine Glucose (UA) Neg (Negative) mg/dL Urine Ketones Tr (Negative) mg/dL Urine Blood Neg (Negative) Urine Nitrite Neg (Negative) Urine Bilirubin Sm (Negative) Urine Ictotest Negative (Negative) Urine Urobilinogen 4.0 (<2.0) mg/dL Ur Leukocyte Esterase Neg (Negative) Urine WBC (Auto) < 1.0 (0.0-6.0) /HPF Urine RBC (Auto) 4.0 (0.0-6.0) /HPF Urine Bacteria (Auto) 1+ (Negative) /HPF Urine Yeast (Budding) 1+ /HPF Urine HCG, Qual Negative (Negative) Urine Opiates Screen Presumptive positive Urine Methadone Screen Presumptive negative Ur Barbiturates Screen Presumptive negative Ur Phencyclidine Scrn Presumptive negative Ur Amphetamines Screen Presumptive negative U Benzodiazepines Scrn Presumptive negative Urine Cocaine Screen Presumptive negative U Marijuana (THC) Screen Presumptive negative Drugs of Abuse Note Disclamer - EKG Data -: EKG Interpreted by Me EKG shows normal: intervals Rate: tachycardia When compared to previous EKG there are: previous EKG unavailable Interpretation: other (electronic ventricular pacemaker) - Radiology Data Radiology results: image reviewed interpreted by me: Chest x-ray shows no acute cardiopulmonary abnormality. - Medical Decision Making Lab and imaging results reviewed and discussed with the patient. Obtaining head CT. Replacing magnesium and potassium intravenously. Patient is to be admitted by the hospitalist. - Differential Diagnosis sepsis, dehydration, electrolyte abnormality Critical care attestation.: If time is entered above; I have spent that time in minutes in the direct care of this critically ill patient, excluding procedure time. ED Disposition Clinical Impression: Hypokalemia, Hypomagnesemia Altered mental status Qualifiers: Altered mental status type: stupor Qualified Code(s): R40.1 - Stupor Open wound of buttock without complication Qualifiers: Encounter type: initial encounter Laterality: left Qualified Code(s): S31.829A - Unspecified open wound of left buttock, initial encounter Disposition: OP ADMITTED IP TO THIS HOSP Is pt being admited?: Yes Condition: Stable Referrals: PRIMARY CARE,MD [Primary Care Provider] - 3-5 Days Time of Disposition: 23:34
[2016-11-03] MEDS: KCL 10MEQ/100ML 10 MEQ/100 ML BAG IV SCH (23:50)
[2016-11-04] MEDS ORDERED: POTASSIUM CHLORIDE FEEDTUBE ONE (00:31)
[2016-11-04] MEDS: KCL 10MEQ/100ML 10 MEQ/100 ML BAG IV SCH ×2 (01:30→08:39)
[2016-11-04] MEDS ORDERED: DULCOLAX PR PRN (01:35)
[2016-11-04] MEDS ORDERED: ZOFRAN IV PRN (01:35)
[2016-11-04] MEDS ORDERED: MILK OF MAGNESIA PO PRN (01:35)
[2016-11-04] MEDS ORDERED: D50W (25GM) IV PRN (01:35)
--- NOTE | 2016-11-04 01:38 | History and Physical Report ---
History of Present Illness Date of examination: 11/04/16 History of present illness: 46-year-old man with a history of hypertension, diabetes complicated by gastroparesis, CHF was brought to the emergency room for altered mental status. She has a history of abscess removal from the buttock in September, status post antibiotic. Nurse state that the patient wounds were dirty, yellow-green discharge . Admits to nausea, vomiting, diarrhea. Patient was worked up for this on the recent admission Review of systems difficult to obtain secondary to accident and waning of mental status PAST SURGICAL HISTORY: AICD SOCIAL HISTORY: Tobacco pack a day, no alcohol or drug FAMILY HISTORY: Hypertension Medications and Allergies Allergies Allergy/AdvReac Type Severity Reaction Status Date / Time Sulfa (Sulfonamide Allergy Anaphylaxis Verified 09/21/16 08:14 Antibiotics) vancomycin Allergy "SHUTS Verified 09/21/16 08:14 KIDNEYS DOWN" Home Medications Medication Instructions Recorded Confirmed Last Taken Type metFORMIN [Glucophage] 1,000 mg PO BID 07/31/14 10/07/16 02/07/16 History PARoxetine [Paxil] 40 mg PO DAILY 11/29/15 10/07/16 02/07/16 History Bacillus Coagulans [Probiotic] 1 each PO BID #30 capsule.dr 09/26/16 10/07/16 Unknown Rx Fluconazole [Diflucan TAB] 100 mg PO QDAY #4 tablet 10/11/16 Unknown Rx HYDROcodone/APAP 5-325 [[place] 1 each PO Q12H PRN #10 tablet 10/11/16 Unknown Rx 5-325 mg TAB] Ondansetron [Zofran TAB] 4 mg PO Q8HR PRN #12 tablet 10/11/16 Unknown Rx Pantoprazole [Protonix TAB] 40 mg PO QDAY #14 tablet 10/11/16 Unknown Rx Cephalexin [Keflex] 500 mg PO Q8HR 10 Days 10/26/16 Unknown Rx Famotidine [Pepcid] 20 mg PO BID #30 tablet 10/26/16 Unknown Rx Ondansetron [Zofran Odt] 4 mg PO Q8HR PRN #12 tab.rapdis 10/26/16 Unknown Rx Sucralfate [Carafate] 1 gm PO Q6HR #1 bottle 10/26/16 Unknown Rx Active Meds: Active Medications Potassium Chloride (Kcl 10meq/100ml) 10 meq in 100 mls @ 100 mls/hr IV Q1H MARLO Stop: 11/04/16 03:44 Last Admin: 11/03/16 23:50 Dose: 100 mls/hr Exam - Physical Exam Narrative exam: Gen. appearance: Patient lying in bed, no apparent distress HEENT: Normocephalic, atraumatic, pupils equally round and reactive to light, extraocular movement intact, and no sclericterus,. No JVD or thyromegaly or nodule,neck supple, no carotid bruit ,mucous membranes moist, no exudate or erythema Heart: S1, S2, regular rate and rhythm Lungs: Clear to auscultation bilaterally, breathing comfortable Abdomen: Positive bowel sounds, nontender, nondistended, no organomegaly Extremity: Vital:, No surrounding erythema No edema, cyanosis, clubbing Skin: No rash, nodules, warm, dry Neuro: cranial nerves II-12 intact, speech is fluent, motor and sensory intact - Constitutional Vitals: Temp Pulse Resp BP Pulse Ox 98.2 F 84 12 113/69 97 11/03/16 22:21 11/04/16 00:23 11/04/16 00:23 11/04/16 00:23 11/04/16 00:23 Results - Labs CBC & Chem 7: 11/03/16 22:25 11/03/16 22:25 Labs: Abnormal lab results 11/03/16 11/03/16 11/03/16 Range/Units 22:25 22:25 22:25 WBC 12.0 H (4.5-11.0) K/mm3 RBC 3.05 L (3.65-5.03) M/mm3 Hgb 8.5 L (10.1-14.3) gm/dl Hct 26.3 L (30.3-42.9) % RDW 16.1 H (13.2-15.2) % Seg Neutrophils % 71.2 H (40.0-70.0) % Seg Neutrophils # 8.5 H (1.8-7.7) K/mm3 PT 17.8 H (12.2-14.9) Sec. INR 1.47 H (0.87-1.13) VBG pH (7.320-7.420) Potassium 2.8 L* (3.6-5.0) mmol/L Chloride 94.8 L (98-107) mmol/L Creatinine 0.5 L (0.7-1.2) mg/dL Glucose 170 H (65-100) mg/dL Magnesium 1.60 L (1.7-2.3) mg/dL Total Bilirubin 1.50 H (0.1-1.2) mg/dL Total Creatine Kinase (30-135) units/L Albumin 2.8 L (3.9-5) g/dL 11/03/16 11/03/16 Range/Units 22:25 22:25 WBC (4.5-11.0) K/mm3 RBC (3.65-5.03) M/mm3 Hgb (10.1-14.3) gm/dl Hct (30.3-42.9) % RDW (13.2-15.2) % Seg Neutrophils % (40.0-70.0) % Seg Neutrophils # (1.8-7.7) K/mm3 PT (12.2-14.9) Sec. INR (0.87-1.13) VBG pH 7.438 H (7.320-7.420) Potassium (3.6-5.0) mmol/L Chloride (98-107) mmol/L Creatinine (0.7-1.2) mg/dL Glucose (65-100) mg/dL Magnesium (1.7-2.3) mg/dL Total Bilirubin (0.1-1.2) mg/dL Total Creatine Kinase 13 L (30-135) units/L Albumin (3.9-5) g/dL - Imaging and Cardiology CT Scan - head: report reviewed Assessment and Plan Altered mental status Buttock wound Hypokalemia Hypertension Diabetes type 2 CHF, stable Admits medicine Start empiric IV antibiotic, replete potassium Obtain wound culture, start outpatient medication, start dvt prophylaxis Fingersticks and initiate insulin sliding scale
--- NOTE | 2016-11-04 02:05 | Cat Scan Report ---
FINAL REPORT PROCEDURE: CT HEAD/BRAIN WO CON TECHNIQUE: Computerized tomography of the head was performed without contrast material. HISTORY: Acute mental status change. New onset confusion COMPARISON: No prior studies are available for comparison. FINDINGS: Skull and scalp: Normal. Paranasal sinuses: Normal. Ventricles and subarachnoid spaces: Normal. Cerebrum: No evidence of hemorrhage, acute infarction or mass . Cerebellum and brainstem: No evidence of hemorrhage, acute infarction or mass. Vasculature: Normal. Comments: None. IMPRESSION: Normal Examination
[2016-11-04] MEDS: ROCEPHIN/NS 1 GM/50 ML 1 GM/50 ML BAG IV SCH (03:00)
[2016-11-04] MEDS: TYLENOL PO PRN (07:09)
[2016-11-04] MEDS: NOVOLOG SUB-Q SCH ×4 (08:39→23:04)
--- NOTE | 2016-11-04 09:46 | XRay Report ---
AP CHEST: HISTORY: Sepsis AP view of the chest demonstrates a normal mediastinal and cardiac contour with clear lungs and normal bony and soft tissue structures. 3-lead pacemaker devices unchanged since 10/07/16. IMPRESSION: Unremarkable AP chest.
[2016-11-04] MEDS: NACL 0.9% 1000 ML 1,000 ML IV SCH ×2 (13:58→23:03)
[2016-11-05] MEDS: ROCEPHIN/NS 1 GM/50 ML 1 GM/50 ML BAG IV SCH (01:48)
--- NOTE | 2016-11-05 03:35 | Admit Criteria Form ---
Admission Criteria Documentation: MENTAL STATUS CHANGE Clinical Indications for Inpatient Care (Place 'X' for any and all applicable criteria): Ongoing inpatient care may be needed for 1 or more of the following(1)(2)(3)(5)( 6): [ ]I. Suspected serious etiology (eg, medical disorder, RETAIL GREETER event) of altered mental status [ ]II. Danger to self or others not manageable at lower level of care [ ]III. Grave disability (eg, inability to perform self care necessary at lower level of care) [ ]IV. Agitation or inappropriate behavior interfering with care for primary condition (eg, attempting to discontinue lines or drains prematurely, unable to cooperate with respiratory care) [ ]V. Delirium [A] [D][E] as described by 1 or more of the following(26): [ ]a) Delirium due to alcohol or sedative [F] withdrawal [ ]b) Delirium of uncertain etiology that has not responded to appropriate empiric treatment [ ]c) Delirium that prevents performance of a life-sustaining function (eg, feeding or hydrating oneself) [ X]. General contraindications and/or Inappropriate clinical situations for Observational Care in patients with Mental Status Change, when ANY ONE of the following is required: [ X]a) Prediction of prolongation of LOS based on ANY ONE of the following may be considered as a contraindication for observational care 2, 3, 4, 5, 6, 7, 8, 9, 10, 11 [ ]i) Age > 65 yrs. [ ]ii) Patient arriving by ambulance [ ]iii) Patient with high acuity [ ]iv) Patient requiring vital sign monitoring [ X]v) Patient on IV medication [ ]b) Systolic blood pressures greater than or equal to 180mmHg 3, 12 [ ]c) Patient with altered mental status including delirium and other alteration of consciousness, (3) [ ]d) Patient whose discharge disposition will be to a residential home or rehabilitation home should not be managed in Emergency Department Observation Unit. CMS rule requires 3 days hospital stay before such placement.3,13 [ ]e) Patient with failure to thrive due to broad array of etiologies 3,16,17 [ ]f) Inability to ambulate 3,14 Extended stay beyond goal length of stay for the primary condition may be needed until ALL of the following are present(3)(5): [ ]a) Underlying medical etiology of mental status change is absent, or has been established and adequately treated [ ]b) Danger to self or others is absent or manageable at lower level of care. [ ]c) Behavior crisis management, including physical or chemical restraints, is not required or available at lower level of car [ ]d) Substance or alcohol withdrawal is absent or manageable at lower level of care. [ ]e) Behavioral symptoms (eg, agitation, somnolence, inappropriate behavior) are absent, or are manageable at lower level of care. The original [facility] content created by [facility] has been revised. The portions of the content which have been revised are identified through the use of italic text or in bold, and [facility] has neither reviewed nor approved the modified material. All other unmodified content is copyright [facility]. Please see references footnoted in the original [facility] edition 2016 Admission Criteria Met: Yes
[2016-11-05 05:38] LABS: Basophils % (Auto) 0.4 % (0.0-1.8); Eosinophils % (Auto) 0.9 % (0.0-4.3); Hematocrit 22.8 % (30.3-42.9); Hemoglobin 7.3 gm/dl (10.1-14.3); Mean Corpuscular HGB Conc 32 % (30-34); Mean Corpuscular Hemoglobin 28 pg (28-32); Mean Corpuscular Volume 86 fl (79-97); Platelet Count 250 K/mm3 (140-440); Red Blood Count 2.64 M/mm3 (3.65-5.03); Red Cell Distribution Width 15.6 % (13.2-15.2); White Blood Count 8.1 K/mm3 (4.5-11.0)
[2016-11-05 05:57] LABS: Anion Gap 21 mmol/L; Blood Urea Nitrogen 12 mg/dL (7-17); Carbon Dioxide 25 mmol/L (22-30); Chloride 103.1 mmol/L (98-107); Glucose 104 mg/dL (65-100); Sodium 146 mmol/L (137-145)
[2016-11-05 06:03] LABS: Potassium 2.6 mmol/L (3.6-5.0)
[2016-11-05] MEDS ORDERED: K-DUR PO ONE ×2 (06:30→10:00)
[2016-11-05] MEDS: KCL 10MEQ/100ML 10 MEQ/100 ML BAG IV SCH ×4 (06:43→14:10)
[2016-11-05] MEDS: NOVOLOG SUB-Q SCH ×4 (08:49→22:49)
[2016-11-05] MEDS: NACL 0.9% 1000 ML 1,000 ML IV SCH (14:10)
[2016-11-05] MEDS: TYLENOL PO PRN (14:14)
--- NOTE | 2016-11-05 18:42 | Progress Note ---
Assessment and Plan Assessment and plan: 1. Acute toxic metabolic encephalopathy Secondary to infection/electrolytes abnormalities Treating underlying conditions 2. Sepsis Status post buttock abscess I&D last month; completed antibiotic course, but still has open wound with drainage per her report; wound culture with GNR and GPC UA positive for yeast, obtain urine culture As she presented for diarrhea, will check C. difficile Consult wound care nurse Continue antibiotics and IV fluids 3. Hypokalemia Supplement IV and po Recheck in a.m. 4. Anemia Normocytic anemia Almost 1 g drop Possible anemia of chronic inflammation/nutritional deficiencies/malnutrition Check iron, B12, folate Monitor H&H 5. Malnutrition Consult dietitian for supplementation 6. Diabetes With gastroparesis per history Metformin on hold Accu-Cheks and SSI 7. Heart failure status post AICD placement Not on any medications at home Will check records 8. Psychiatric disorder Resume Paxil 9. DVT prophylaxis SCDs. Hold anticoagulation given anemia History Interval history: Talking and responding very slow, no specific complaints Hospitalist Physical - Constitutional Vitals: Temp Pulse Resp BP Pulse Ox 98.3 F 82 16 110/60 98 11/05/16 16:30 11/05/16 16:30 11/05/16 16:30 11/05/16 16:30 11/05/16 09:36 General appearance: Present: no acute distress - EENT Eyes: Present: PERRL, EOM intact. Absent: scleral icterus, conjunctival injection - Neck Neck: Present: supple. Absent: enlarged thyroid, masses or JVD - Respiratory Respiratory effort: normal Respiratory: bilateral: CTA, negative: rales, rhonchi, wheezing - Cardiovascular Rhythm: regular Heart Sounds: Present: S1 & S2. Absent: systolic murmur - Extremities Extremities: no ischemia - Abdominal General gastrointestinal: soft, non-tender, non-distended, normal bowel sounds - Psychiatric Psychiatric: other (flat affect, slow speech) - Neurologic Neurologic: no focal deficits Results - Labs CBC & Chem 7: 11/06/16 05:15 11/06/16 05:15 Labs: Laboratory Last Values WBC 8.1 K/mm3 (4.5-11.0) 11/05/16 04:22 RBC 2.64 M/mm3 (3.65-5.03) L 11/05/16 04:22 Hgb 7.3 gm/dl (10.1-14.3) L 11/05/16 04:22 Hct 22.8 % (30.3-42.9) L 11/05/16 04:22 MCV 86 fl (79-97) 11/05/16 04:22 MCH 28 pg (28-32) 11/05/16 04:22 MCHC 32 % (30-34) 11/05/16 04:22 RDW 15.6 % (13.2-15.2) H 11/05/16 04:22 Plt Count 250 K/mm3 (140-440) 11/05/16 04:22 Lymph % (Auto) 36.3 % (13.4-35.0) H 11/05/16 04:22 [place] % (Auto) 4.8 % (0.0-7.3) 11/05/16 04:22 Eos % (Auto) 0.9 % (0.0-4.3) 11/05/16 04:22 Baso % (Auto) 0.4 % (0.0-1.8) 11/05/16 04:22 Lymph # 2.9 K/mm3 (1.2-5.4) 11/05/16 04:22 [place] # 0.4 K/mm3 (0.0-0.8) 11/05/16 04:22 Eos # 0.1 K/mm3 (0.0-0.4) 11/05/16 04:22 Baso # 0.0 K/mm3 (0.0-0.1) 11/05/16 04:22 Seg Neutrophils % 57.6 % (40.0-70.0) 11/05/16 04:22 Seg Neutrophils # 4.7 K/mm3 (1.8-7.7) 11/05/16 04:22 PT 17.8 Sec. (12.2-14.9) H 11/03/16 22:25 INR 1.47 (0.87-1.13) H 11/03/16 22:25 VBG pH 7.438 (7.320-7.420) H 11/03/16 22:25 Sodium 146 mmol/L (137-145) H 11/05/16 04:22 Potassium 2.6 mmol/L (3.6-5.0) L* 11/05/16 04:22 Chloride 103.1 mmol/L (98-107) 11/05/16 04:22 Carbon Dioxide 25 mmol/L (22-30) 11/05/16 04:22 Anion Gap 21 mmol/L 11/05/16 04:22 BUN 12 mg/dL (7-17) 11/05/16 04:22 Creatinine 0.4 mg/dL (0.7-1.2) L 11/05/16 04:22 Estimated GFR > 60 ml/min 11/05/16 04:22 BUN/Creatinine Ratio 30.00 % 11/05/16 04:22 Glucose 104 mg/dL (65-100) H 11/05/16 04:22 POC Glucose 100 (70-105) 11/05/16 16:37 Lactic Acid 1.3 mmol/L (0.7-2.0) 11/04/16 01:07 Calcium 8.0 mg/dL (8.4-10.2) L 11/05/16 04:22 Magnesium 1.60 mg/dL (1.7-2.3) L 11/03/16 22:25 Total Bilirubin 1.50 mg/dL (0.1-1.2) H 11/03/16 22:25 AST 9 units/L (5-40) 11/03/16 22:25 ALT 8 units/L (7-56) 11/03/16 22:25 Alkaline Phosphatase 125 units/L (35-129) 11/03/16 22:25 Total Creatine Kinase 13 units/L (30-135) L 11/03/16 22:25 Total Protein 6.8 g/dL (6.3-8.2) 11/03/16 22:25 Albumin 2.8 g/dL (3.9-5) L 11/03/16 22:25 Albumin/Globulin Ratio 0.7 % 11/03/16 22:25 TSH 0.398 mlU/mL (0.270-4.200) 11/03/16 22:25 Urine Color Barbara (Yellow) 11/03/16 22:59 Urine Turbidity Clear (Clear) 11/03/16 22:59 Urine pH 6.0 (5.0-7.0) 11/03/16 22:59 Ur Specific [place] 1.023 (1.003-1.030) 11/03/16 22:59 Urine Protein 30 mg/dl mg/dL (Negative) 11/03/16 22:59 Urine Glucose (UA) Neg mg/dL (Negative) 11/03/16 22:59 Urine Ketones Tr mg/dL (Negative) 11/03/16 22:59 Urine Blood Neg (Negative) 11/03/16 22:59 Urine Nitrite Neg (Negative) 11/03/16 22:59 Urine Bilirubin Sm (Negative) 11/03/16 22:59 Urine Ictotest Negative (Negative) 11/03/16 22:59 Urine Urobilinogen 4.0 mg/dL (<2.0) 11/03/16 22:59 Ur Leukocyte Esterase Neg (Negative) 11/03/16 22:59 Urine WBC (Auto) < 1.0 /HPF (0.0-6.0) 11/03/16 22:59 Urine RBC (Auto) 4.0 /HPF (0.0-6.0) 11/03/16 22:59 Urine Bacteria (Auto) 1+ /HPF (Negative) 11/03/16 22:59 Urine Yeast (Budding) 1+ /HPF 11/03/16 22:59 Urine HCG, Qual Negative (Negative) 11/03/16 22:59 Urine Opiates Screen Presumptive positive 11/03/16 22:59 Urine Methadone Screen Presumptive negative 11/03/16 22:59 Ur Barbiturates Screen Presumptive negative 11/03/16 22:59 Ur Phencyclidine Scrn Presumptive negative 11/03/16 22:59 Ur Amphetamines Screen Presumptive negative 11/03/16 22:59 U Benzodiazepines Scrn Presumptive negative 11/03/16 22:59 Urine Cocaine Screen Presumptive negative 11/03/16 22:59 U Marijuana (THC) Screen Presumptive negative 11/03/16 22:59 Drugs of Abuse Note Disclamer 11/03/16 22:59
[2016-11-06] MEDS: NACL 0.9% 1000 ML 1,000 ML IV SCH (00:45)
[2016-11-06] MEDS: ROCEPHIN/NS 1 GM/50 ML 1 GM/50 ML BAG IV SCH (01:24)
[2016-11-06 01:57] LABS: Mucus,Urine 3+ /HPF
[2016-11-06 07:23] LABS: Basophils % (Auto) 0.5 % (0.0-1.8); Eosinophils % (Auto) 2.6 % (0.0-4.3); Hemoglobin 7.2 gm/dl (10.1-14.3); Mean Corpuscular HGB Conc 33 % (30-34); Mean Corpuscular Hemoglobin 28 pg (28-32); Mean Corpuscular Volume 86 fl (79-97); Platelet Count 265 K/mm3 (140-440); Red Blood Count 2.56 M/mm3 (3.65-5.03); Red Cell Distribution Width 17.1 % (13.2-15.2); White Blood Count 8.8 K/mm3 (4.5-11.0)
[2016-11-06 07:45] LABS: Anion Gap 19 mmol/L; BUN/Creatinine Ratio 26.66; Blood Urea Nitrogen 8 mg/dL (7-17); Calcium 7.6 mg/dL (8.4-10.2); Carbon Dioxide 23 mmol/L (22-30); Chloride 107.4 mmol/L (98-107); Glucose 85 mg/dL (65-100); Potassium 3.6 mmol/L (3.6-5.0); Sodium 146 mmol/L (137-145)
[2016-11-06] MEDS: NOVOLOG SUB-Q SCH ×4 (08:00→21:42)
[2016-11-06 08:06] LABS: Iron 52 ug/dL (37-170); Total Iron Binding Capacity 102 mcg/dL (250-450)
[2016-11-06] MEDS: TYLENOL PO PRN (16:35)
--- NOTE | 2016-11-06 19:15 | Progress Note ---
Assessment and Plan Assessment and plan: 1. Acute toxic metabolic encephalopathy Secondary to infection/electrolytes abnormalities Treating underlying conditions 2. Sepsis Status post buttock abscess I&D last month; completed antibiotic course, but still has open wound with drainage per her report; evaluated by wound care nurse today and there are 2 attack incisions noncommunicating between them, with no drainage and no other; wound culture growing 2 different GNR's UA positive for yeast, urine culture obtained, results pending As she presented for diarrhea, C. difficile checked and negative Continue antibiotics, unique treatment based on cultures results 3. Hypokalemia Repleted, continue to monitor 4. Anemia Normocytic anemia - anemia of chronic inflammation/nutritional deficiencies/ malnutrition Iron the lower limit of normal, folate decreased and B12 within normal limits Monitor H&H Start folic acid supplementation, plan to start iron after infection cleared 5. Malnutrition Dietitian consulted for supplementation 6. Diabetes With gastroparesis per history Metformin on hold Accu-Cheks and SSI 7. Heart failure status post AICD placement Not on any medications at home Trying to obtain records 8. Psychiatric disorder Paxil resumed 9. DVT prophylaxis SCDs. Hold anticoagulation given anemia History Interval history: No events overnight, no complaints this morning, mentally still very slow; wound cleaned and packed by wound care nurse Hospitalist Physical - Constitutional Vitals: Temp Pulse Resp BP Pulse Ox 99.4 F 109 H 20 115/72 100 11/06/16 15:10 11/06/16 15:10 11/06/16 15:10 11/06/16 15:10 11/06/16 11:20 General appearance: Present: no acute distress - EENT Eyes: Present: PERRL, EOM intact. Absent: scleral icterus, conjunctival injection - Neck Neck: Present: supple, normal ROM. Absent: masses or JVD - Respiratory Respiratory effort: normal Respiratory: bilateral: CTA, negative: rhonchi, wheezing - Cardiovascular Rhythm: regular Heart Sounds: Present: S1 & S2. Absent: systolic murmur - Extremities Extremities: no ischemia - Abdominal General gastrointestinal: soft, non-tender, non-distended, normal bowel sounds - Psychiatric Psychiatric: other (flat affect, slow thinking, forgetful) - Neurologic Neurologic: moves all extremities - Additional findings Additional findings: Buttock with 2 incisions, no draining, no odor Results - Labs CBC & Chem 7: 11/06/16 05:15 11/06/16 05:15 Labs: Laboratory Last Values WBC 8.8 K/mm3 (4.5-11.0) 11/06/16 05:15 RBC 2.56 M/mm3 (3.65-5.03) L 11/06/16 05:15 Hgb 7.2 gm/dl (10.1-14.3) L 11/06/16 05:15 Hct 22.0 % (30.3-42.9) L 11/06/16 05:15 MCV 86 fl (79-97) 11/06/16 05:15 MCH 28 pg (28-32) 11/06/16 05:15 MCHC 33 % (30-34) 11/06/16 05:15 RDW 17.1 % (13.2-15.2) H 11/06/16 05:15 Plt Count 265 K/mm3 (140-440) 11/06/16 05:15 Lymph % (Auto) 31.6 % (13.4-35.0) 11/06/16 05:15 [place] % (Auto) 4.6 % (0.0-7.3) 11/06/16 05:15 Eos % (Auto) 2.6 % (0.0-4.3) 11/06/16 05:15 Baso % (Auto) 0.5 % (0.0-1.8) 11/06/16 05:15 Lymph # 2.8 K/mm3 (1.2-5.4) 11/06/16 05:15 [place] # 0.4 K/mm3 (0.0-0.8) 11/06/16 05:15 Eos # 0.2 K/mm3 (0.0-0.4) 11/06/16 05:15 Baso # 0.0 K/mm3 (0.0-0.1) 11/06/16 05:15 Seg Neutrophils % 60.7 % (40.0-70.0) 11/06/16 05:15 Seg Neutrophils # 5.3 K/mm3 (1.8-7.7) 11/06/16 05:15 PT 17.8 Sec. (12.2-14.9) H 11/03/16 22:25 INR 1.47 (0.87-1.13) H 11/03/16 22:25 VBG pH 7.438 (7.320-7.420) H 11/03/16 22:25 Sodium 146 mmol/L (137-145) H 11/06/16 05:15 Potassium 3.6 mmol/L (3.6-5.0) 11/06/16 05:15 Chloride 107.4 mmol/L (98-107) H 11/06/16 05:15 Carbon Dioxide 23 mmol/L (22-30) 11/06/16 05:15 Anion Gap 19 mmol/L 11/06/16 05:15 BUN 8 mg/dL (7-17) 11/06/16 05:15 Creatinine 0.3 mg/dL (0.7-1.2) L 11/06/16 05:15 Estimated GFR > 60 ml/min 11/06/16 05:15 BUN/Creatinine Ratio 26.66 % 11/06/16 05:15 Glucose 85 mg/dL (65-100) 11/06/16 05:15 POC Glucose 94 (70-105) 11/06/16 11:05 Lactic Acid 1.3 mmol/L (0.7-2.0) 11/04/16 01:07 Calcium 7.6 mg/dL (8.4-10.2) L 11/06/16 05:15 Magnesium 1.60 mg/dL (1.7-2.3) L 11/03/16 22:25 Iron 52 ug/dL (37-170) 11/06/16 05:15 TIBC 102 mcg/dL (250-450) L 11/06/16 05:15 Total Bilirubin 1.50 mg/dL (0.1-1.2) H 11/03/16 22:25 AST 9 units/L (5-40) 11/03/16 22:25 ALT 8 units/L (7-56) 11/03/16 22:25 Alkaline Phosphatase 125 units/L (35-129) 11/03/16 22:25 Total Creatine Kinase 13 units/L (30-135) L 11/03/16 22:25 Total Protein 6.8 g/dL (6.3-8.2) 11/03/16 22:25 Albumin 2.8 g/dL (3.9-5) L 11/03/16 22:25 Albumin/Globulin Ratio 0.7 % 11/03/16 22:25 Vitamin B12 484.7 pg/mL (211-911) 11/06/16 05:15 Folate 5.82 ng/mL (7.3-26.0) L 11/06/16 05:15 TSH 0.398 mlU/mL (0.270-4.200) 11/03/16 22:25 Urine Color [place] (Yellow) 11/03/16 22:59 Urine Turbidity Clear (Clear) 11/03/16 22:59 Urine pH 6.0 (5.0-7.0) 11/03/16 22:59 Ur Specific [place] 1.023 (1.003-1.030) 11/03/16 22:59 Urine Protein 30 mg/dl mg/dL (Negative) 11/03/16 22:59 Urine Glucose (UA) Neg mg/dL (Negative) 11/03/16 22:59 Urine Ketones Tr mg/dL (Negative) 11/03/16 22:59 Urine Blood Neg (Negative) 11/03/16 22:59 Urine Nitrite Neg (Negative) 11/03/16 22:59 Urine Bilirubin Sm (Negative) 11/03/16 22:59 Urine Ictotest Negative (Negative) 11/03/16 22:59 Urine Urobilinogen 4.0 mg/dL (<2.0) 11/03/16 22:59 Ur Leukocyte Esterase Neg (Negative) 11/03/16 22:59 Urine WBC (Auto) 21.0 /HPF (0.0-6.0) H 11/06/16 Unknown Urine RBC (Auto) 96.0 /HPF (0.0-6.0) 11/06/16 Unknown U Epithel Cells (Auto) 2.0 /HPF (0-13.0) 11/06/16 Unknown Urine Bacteria (Auto) 1+ /HPF (Negative) 11/03/16 22:59 Hyaline Casts 3 /LPF 11/06/16 Unknown Urine Mucus 3+ /HPF 11/06/16 Unknown Urine Yeast (Budding) 3+ /HPF 11/06/16 Unknown Urine HCG, Qual Negative (Negative) 11/03/16 22:59 Urine Opiates Screen Presumptive positive 11/03/16 22:59 Urine Methadone Screen Presumptive negative 11/03/16 22:59 Ur Barbiturates Screen Presumptive negative 11/03/16 22:59 Ur Phencyclidine Scrn Presumptive negative 11/03/16 22:59 Ur Amphetamines Screen Presumptive negative 11/03/16 22:59 U Benzodiazepines Scrn Presumptive negative 11/03/16 22:59 Urine Cocaine Screen Presumptive negative 11/03/16 22:59 U Marijuana (THC) Screen Presumptive negative 11/03/16 22:59 Drugs of Abuse Note Disclamer 11/03/16 22:59
[2016-11-07] MEDS: ROCEPHIN/NS 1 GM/50 ML 1 GM/50 ML BAG IV SCH (01:49)
[2016-11-07] MEDS: NOVOLOG SUB-Q SCH ×3 (08:24→17:57)
[2016-11-07] MEDS: PAXIL PO SCH (10:26)
[2016-11-07] MEDS: NACL 0.9% 1000 ML 1,000 ML IV SCH ×2 (10:37→22:05)
--- NOTE | 2016-11-07 13:48 | Discharge Summary ---
Providers - Providers Date of Admission: 11/04/16 01:35 Date of discharge: 11/07/16 Attending physician: FLORESITA KELLY 11/04/16 02:53 Consult to Wound/ET Nurse [CONS] Routine Reason For Exam: wound eval Primary care physician: SLP TEACHER Hospitalization Reason for admission: unhealing wound Condition: Stable Pertinent studies: CXR CT head Hospital course: She should 89 years old female with nonischemic cardiomyopathy, diabetes, infected buttock cyst status post I&D during previous hospitalization, for which she completed antibiotic course, who returned to the hospital c/o unhealing open wound with foul smelling drainage. Started on iv antibiotics and wound care nurse consulted - assessment revealed 2 healing surgical sites with no drainage or odor, granulating tissue. Her UA was sugestive of UTI, so urine culture obtained. Electrolytes imbalances treating accordingly. She will be discharged home on antibiotics that will cover both UTI/wound infection, will have 3 visits per week to wound care center, as well as, home health. She will need psychiatry evaluation and clearance prior to discharge due to her change in mental status/slow mentation. Discharge diagnosis: 1. Acute toxic metabolic encephalopathy 2. Sepsis 3. Hypokalemia 4. Anemia of chronic inflammation/nutritional deficiencies 5. Malnutrition 6. Diabetes 7. Nonischemic cardiomyopathy s/p AICD placement 8. Psychiatric disorder Disposition: DC/[place] HOME UNDER HOME HEALTH Time spent for discharge: 35 min Core Measure Documentation - Palliative Care Palliative Care/ Comfort Measures: Not Applicable - Core Measures Any of the following diagnoses?: none Exam - Physical Exam Narrative exam: Patient seen and examined: - Constitutional Vitals: Temp Pulse Resp BP Pulse Ox 98.2 F 101 H 16 119/72 100 11/07/16 06:45 11/07/16 06:45 11/07/16 06:45 11/07/16 06:45 11/07/16 06:45 General appearance: Present: no acute distress - EENT Eyes: Present: PERRL, EOM intact - Neck Neck: Present: supple. Absent: enlarged thyroid, masses or JVD - Respiratory Respiratory effort: normal Respiratory: bilateral: CTA, negative: rhonchi, wheezing - Cardiovascular Rhythm: other (tachycardic) Heart Sounds: Present: S1 & S2. Absent: systolic murmur - Extremities Extremities: no ischemia - Abdominal General gastrointestinal: Present: soft, non-tender, non-distended, normal bowel sounds - Integumentary Integumentary: Present: warm, dry. Absent: jaundice, rash - Musculoskeletal Musculoskeletal: generalized weakness - Psychiatric Psychiatric: no intact judgment & insight, other (flat affect, slow mentation) - Neurologic Neurologic: moves all extremities Plan Activity: advance as tolerated, fall precautions Diet: low cholesterol, low salt Special Instructions: home health RN Additional Instructions: Wound care center as scheduled; follow up culture results Follow up with: PRIMARY CARE, [Primary Care Provider] - 3-5 Days (recheck BMP) Prescriptions: Acetaminophen [Acetaminophen TAB] 650 mg PO Q4H PRN #30 tablet PRN Reason: Pain MILD(1-3)/Fever >100.5/BAL Ciprofloxacin/Ciprofloxa HCl [Cipro XR TAB] 500 mg PO BID #14 tbmp.24hr Pending Studies pending psyc evaluation and clearance
[2016-11-07 15:05] LABS: Hematocrit 24.8 % (30.3-42.9); Hemoglobin 8.1 gm/dl (10.1-14.3)
[2016-11-08] MEDS: NOVOLOG SUB-Q SCH ×5 (00:42→22:00)
[2016-11-08] MEDS: ROCEPHIN/NS 1 GM/50 ML 1 GM/50 ML BAG IV SCH (01:50)
[2016-11-08] MEDS: NACL 0.9% 1000 ML 1,000 ML IV SCH (08:03)
[2016-11-08] MEDS: TYLENOL PO PRN ×2 (08:04→13:18)
[2016-11-08] MEDS: PAXIL PO SCH (12:48)
--- NOTE | 2016-11-08 13:36 | Consultation ---
History of Present Illness - Reason for Consult Consult date: 11/08/16 Reason for consult: psychiatric evaluation - Chief Complaint Chief complaint: "I guess I'm depressed" 46-year-old female seen on the medical floor for psychiatric evaluation. We're consulted by the hospitalist for concerns of depression and the Paxil is not benefiting her. Upon evaluation she is confused and has difficulty answering most questions in a logical manner. Psychomotor retardation is present, speech is slow and slurred at times. She describes her thoughts are slow at times and incomplete at times. When answering questions she would begin to make a statement and then stop. She was unable to continue answering the question and had to be prompted again. She was unable to complete the Mini-Mental status exam. She is alert to person. She was unable to state the time and date. She is unable to state the town or Hospital but was at least in the vicinity in naming the location, [place]. She is not eating. Therefore she cannot complete a gastric emptying test. There is concern that his depression is affecting her appetite. Patient is unable to tell me how long she has not had an appetite. She does report problems with gastric emptying in the past. She describes herself to be in active at home. She lives with her brother. She acknowledges this and describes her living situation as safe. Physical therapy saw her today and she was only able to sit on the edge of the bed, per collateral from the nurse. She was unable to complete the interview. Unable to determine suicidal or homicidal thoughts. Unable to determine auditory or visual hallucinations. Patient did appear to have trouble visually tracking and was restless. She complained of pain in her abdomen. Medications and Allergies Allergies Allergy/AdvReac Type Severity Reaction Status Date / Time Sulfa (Sulfonamide Allergy Anaphylaxis Verified 09/21/16 08:14 Antibiotics) vancomycin Allergy "SHUTS Verified 09/21/16 08:14 KIDNEYS DOWN" Home Medications Medication Instructions Recorded Confirmed Last Taken Type metFORMIN [Glucophage] 1,000 mg PO BID 07/31/14 10/07/16 02/07/16 History PARoxetine [Paxil] 40 mg PO DAILY 11/29/15 10/07/16 02/07/16 History Bacillus Coagulans [Probiotic] 1 each PO BID #30 capsule. 09/26/16 10/07/16 Unknown Rx Famotidine [Pepcid] 20 mg PO BID #30 tablet 10/26/16 Unknown Rx Ondansetron [Zofran ODT TAB] 4 mg PO Q8HR PRN #12 tab.rapdis 10/26/16 Unknown Rx Sucralfate [Carafate] 1 gm PO Q6HR #1 bottle 10/26/16 Unknown Rx Acetaminophen [Acetaminophen TAB] 650 mg PO Q4H PRN #30 tablet 11/07/16 Unknown Rx Ciprofloxacin/Ciprofloxa HCl 500 mg PO BID #14 tbmp.24hr 11/07/16 Unknown Rx [Cipro XR TAB] Folic Acid/Vit Bcomp,C [B-Complex 400 mcg PO DAILY #30 tablet 11/07/16 Unknown Rx with Vit C Tablet] Active Meds: Active Medications Acetaminophen (Tylenol) 650 mg PO Q4H PRN PRN Reason: Pain MILD(1-3)/Fever >100.5/BAL Last Admin: 11/08/16 13:18 Dose: 650 mg Bisacodyl (Dulcolax) 10 mg [place] QDAY PRN PRN Reason: Constipation unrelieved by MOM Dextrose (D50w (25gm)) 50 ml IV PRN PRN PRN Reason: Hypoglycemia Ceftriaxone Sodium (Rocephin/Ns 1 Gm/50 Ml) 1 gm in 50 mls @ 100 mls/hr IV Q24H [facility] Last Admin: 11/08/16 01:50 Dose: 100 mls/hr Sodium Chloride (Nacl 0.9% 1000 Ml) 1,000 mls @ 125 mls/hr IV DIRECT [facility] Last Admin: 11/08/16 08:03 Dose: 125 mls/hr Insulin Aspart (Novolog) 0 units SUB-Q ACHS MARLO PRN Reason: Protocol Last Admin: 11/08/16 12:48 Dose: Not Given Magnesium Hydroxide (Milk Of Magnesia) 30 ml PO Q4H PRN PRN Reason: Constipation Ondansetron HCl (Zofran) 4 mg IV Q8H PRN PRN Reason: N/V unrelieved by Reglan Last Admin: 11/05/16 09:06 Dose: 4 mg Paroxetine HCl (Paxil) 40 mg PO DAILY [facility] Last Admin: 11/08/16 12:48 Dose: 40 mg Past psychiatric history - Past Medical History Past Medical History: diabetes Past Surgical History: Other (see medical H&P) - past Psychiatric treatment and history Psych: Depression psychiatric treatment history: She denies currently being connected with psychiatry but reports seeing one in the past. - Social History Social history: lives with family, other (denies illicit drug or alcohol use. drug screen positive for opiates) Mental Status Exam - Vital signs Last Vital Signs Temp 98.3 F 11/08/16 07:15 Pulse 91 H 11/08/16 07:15 Resp 18 11/08/16 07:15 BP 149/85 11/08/16 07:15 Pulse Ox 99 11/08/16 07:15 - Exam Orientation: person Affect: flat, depressed Mood: congruent with affect Thought content: other (unable to determine) Thought Process: Disoriented Perceptions: other (unable to assess) Speech: minimal response (slow and slurred at times) Concentration: unable to pay attention Motor activity: restless Level of consciousness: confused Memory: Recent Impaired Appetite: decreased Interaction: other (she attempted to be cooperative) Results Result Diagrams: 11/07/16 14:29 11/06/16 05:15 Abnormal lab results 11/07/16 11/07/16 11/08/16 Range/Units 14:29 21:32 12:21 Hgb 8.1 L (10.1-14.3) gm/dl Hct 24.8 L (30.3-42.9) % POC Glucose 122 H 109 H (70-105) All other labs normal. Assessment and Plan Assessment and plan: Impression: Altered mental status Given the inability to assess her gastric emptying (unable to complete the study ) and her complaints of abdominal pain, it is unclear if the depression is definitively attributing to her loss of appetite. Delirium/Acute toxic encephalopathy Major depressive disorder Recommendations: Evaluating the severity of the depression is difficult since she is experiencing altered mental status Changing her antidepressant at this time would likely not change her current presentation. Delirium should resolve as the underlying medical conditions are addressed Paxil at 40mg daily may actually be complicating her presentation-Recommend decreasing it to 20mg daily - continue medical management to treat underlying conditions such as infection, to help resolve the delirium - Frequently reorient patient and involve her in their care (simple explanations of procedures, tests, medications). - Lights on and shades open during daytime hours. - Write date and goals of care in a visible place. - Try to avoid unnecessary interruptions to sleep during nighttime hours. - Obtain glasses, hearing aids from home if patient uses these at baseline. - Avoid medications that may exacerbate delirium (especially narcotics, benzodiazepines, barbiturates, ambien, lunesta, and medications with excessive anticholinergic properties) The patient does not have the capacity to leave against medical advice. The patient has not been able to demonstrate ability to care for self and should be maintained in a structured environment. Given her lack of capacity to make a decision, a surrogate decision maker should be named to make medical, placement , and discharge decisions. Should the patient try to leave, they should not be allowed unless the surrogate decision maker has agreed. The risk, benefits, and alternative options to holding the patient for placement should be discussed with the surrogate, and he/she must also demonstrate understanding of these principles. If a surrogate decision maker has not been identified, the hospital should act in the patients best interest until one can be identified or a guardian established. At this time, we feel it is in the patients best interest to remain at [facility] in a structured environment with adequate support for daily living until she is able to return home or another placement. The patient does not meet criteria for a 1013 or any other psychiatric legal hold.
--- NOTE | 2016-11-08 14:44 | Progress Note ---
Assessment and Plan Assessment and plan: 1. Acute toxic metabolic encephalopathy Secondary to infection/electrolytes abnormalities/severe deppression with severe malnutrition and nutritional deficiencies 2. Sepsis Status post buttock abscess I&D last month; completed antibiotic course, but still has open wound with drainage per her report; evaluated by wound care nurse today and there are 2 attack incisions noncommunicating between them, with no drainage and no other; wound culture grew enterococcus, Enterobacter, Klebsiella UA positive for yeast, urine culture obtained, result with usual skin shadi; no mention about yeast As she presented for diarrhea, C. difficile checked and negative Organisms sensitive to Bactrim, but unable to take by mouth Continue IV antibiotic and add Diflucan 3. Hypokalemia Repleted, continue to monitor 4. Anemia Normocytic anemia - anemia of chronic inflammation/nutritional deficiencies/ malnutrition Iron the lower limit of normal, folate decreased and B12 within normal limits Monitor H&H Folic acid and iron supplementation; will give Fe iv as not taking po 5. Malnutrition Dietitian consulted for supplementation 6. Diabetes With gastroparesis per history; NM gastric emptying ordered, but unobtainable as she is not eating/swallowing Metformin on hold Accu-Cheks and SSI 7. Heart failure status post AICD placement Not on any medications at home Trying to obtain records 8. Psychiatric disorder On Paxil Psychiatry consulted for further recommendations as she has severe depression and this may be the reason she is not eating 9. DVT prophylaxis SCDs. Hold anticoagulation given anemia History Interval history: not eating at all, NM gastric emptying study unable to be obtained; extremely weak, unable to perform any daily living activity Hospitalist Physical - Constitutional Vitals: Temp Pulse Resp BP Pulse Ox 98.3 F 91 H 18 149/85 99 11/08/16 07:15 11/08/16 07:15 11/08/16 07:15 11/08/16 07:15 11/08/16 07:15 General appearance: Present: no acute distress - EENT Eyes: Present: PERRL, EOM intact - Neck Neck: Present: supple. Absent: enlarged thyroid, masses or JVD - Respiratory Respiratory effort: normal Respiratory: bilateral: CTA, negative: rhonchi, wheezing - Cardiovascular Rhythm: other (tachycardic) Heart Sounds: Present: S1 & S2. Absent: systolic murmur - Extremities Extremities: no ischemia - Abdominal General gastrointestinal: soft, non-tender, non-distended, normal bowel sounds - Integumentary Integumentary: Present: warm, pale, decreased turgor. Absent: jaundice, rash - Psychiatric Psychiatric: no appropriate mood/affect, no intact judgment & insight, depressed Results - Labs CBC & Chem 7: 11/07/16 14:29 11/06/16 05:15 Labs: Laboratory Last Values WBC 8.8 K/mm3 (4.5-11.0) 11/06/16 05:15 RBC 2.56 M/mm3 (3.65-5.03) L 11/06/16 05:15 Hgb 8.1 gm/dl (10.1-14.3) L 11/07/16 14:29 Hct 24.8 % (30.3-42.9) L 11/07/16 14:29 MCV 86 fl (79-97) 11/06/16 05:15 MCH 28 pg (28-32) 11/06/16 05:15 MCHC 33 % (30-34) 11/06/16 05:15 RDW 17.1 % (13.2-15.2) H 11/06/16 05:15 Plt Count 265 K/mm3 (140-440) 11/06/16 05:15 Lymph % (Auto) 31.6 % (13.4-35.0) 11/06/16 05:15 Hayes % (Auto) 4.6 % (0.0-7.3) 11/06/16 05:15 Eos % (Auto) 2.6 % (0.0-4.3) 11/06/16 05:15 Baso % (Auto) 0.5 % (0.0-1.8) 11/06/16 05:15 Lymph # 2.8 K/mm3 (1.2-5.4) 11/06/16 05:15 Hayes # 0.4 K/mm3 (0.0-0.8) 11/06/16 05:15 Eos # 0.2 K/mm3 (0.0-0.4) 11/06/16 05:15 Baso # 0.0 K/mm3 (0.0-0.1) 11/06/16 05:15 Seg Neutrophils % 60.7 % (40.0-70.0) 11/06/16 05:15 Seg Neutrophils # 5.3 K/mm3 (1.8-7.7) 11/06/16 05:15 PT 17.8 Sec. (12.2-14.9) H 11/03/16 22:25 INR 1.47 (0.87-1.13) H 11/03/16 22:25 VBG pH 7.438 (7.320-7.420) H 11/03/16 22:25 Sodium 146 mmol/L (137-145) H 11/06/16 05:15 Potassium 3.6 mmol/L (3.6-5.0) 11/06/16 05:15 Chloride 107.4 mmol/L (98-107) H 11/06/16 05:15 Carbon Dioxide 23 mmol/L (22-30) 11/06/16 05:15 Anion Gap 19 mmol/L 11/06/16 05:15 BUN 8 mg/dL (7-17) 11/06/16 05:15 Creatinine 0.3 mg/dL (0.7-1.2) L 11/06/16 05:15 Estimated GFR > 60 ml/min 11/06/16 05:15 BUN/Creatinine Ratio 26.66 % 11/06/16 05:15 Glucose 85 mg/dL (65-100) 11/06/16 05:15 POC Glucose 109 (70-105) H 11/08/16 12:21 Lactic Acid 1.3 mmol/L (0.7-2.0) 11/04/16 01:07 Calcium 7.6 mg/dL (8.4-10.2) L 11/06/16 05:15 Magnesium 1.60 mg/dL (1.7-2.3) L 11/03/16 22:25 Iron 52 ug/dL (37-170) 11/06/16 05:15 TIBC 102 mcg/dL (250-450) L 11/06/16 05:15 Total Bilirubin 1.50 mg/dL (0.1-1.2) H 11/03/16 22:25 AST 9 units/L (5-40) 11/03/16 22:25 ALT 8 units/L (7-56) 11/03/16 22:25 Alkaline Phosphatase 125 units/L (35-129) 11/03/16 22:25 Total Creatine Kinase 13 units/L (30-135) L 11/03/16 22:25 Total Protein 6.8 g/dL (6.3-8.2) 11/03/16 22:25 Albumin 2.8 g/dL (3.9-5) L 11/03/16 22:25 Albumin/Globulin Ratio 0.7 % 11/03/16 22:25 Vitamin B12 484.7 pg/mL (211-911) 11/06/16 05:15 Folate 5.82 ng/mL (7.3-26.0) L 11/06/16 05:15 TSH 0.398 mlU/mL (0.270-4.200) 11/03/16 22:25 Urine Color Barbara (Yellow) 11/03/16 22:59 Urine Turbidity Clear (Clear) 11/03/16 22:59 Urine pH 6.0 (5.0-7.0) 11/03/16 22:59 Ur Specific [place] 1.023 (1.003-1.030) 11/03/16 22:59 Urine Protein 30 mg/dl mg/dL (Negative) 11/03/16 22:59 Urine Glucose (UA) Neg mg/dL (Negative) 11/03/16 22:59 Urine Ketones Tr mg/dL (Negative) 11/03/16 22:59 Urine Blood Neg (Negative) 11/03/16 22:59 Urine Nitrite Neg (Negative) 11/03/16 22:59 Urine Bilirubin Sm (Negative) 11/03/16 22:59 Urine Ictotest Negative (Negative) 11/03/16 22:59 Urine Urobilinogen 4.0 mg/dL (<2.0) 11/03/16 22:59 Ur Leukocyte Esterase Neg (Negative) 11/03/16 22:59 Urine WBC (Auto) 21.0 /HPF (0.0-6.0) H 11/06/16 Unknown Urine RBC (Auto) 96.0 /HPF (0.0-6.0) 11/06/16 Unknown U Epithel Cells (Auto) 2.0 /HPF (0-13.0) 11/06/16 Unknown Urine Bacteria (Auto) 1+ /HPF (Negative) 11/03/16 22:59 Hyaline Casts 3 /LPF 11/06/16 Unknown Urine Mucus 3+ /HPF 11/06/16 Unknown Urine Yeast (Budding) 3+ /HPF 11/06/16 Unknown Urine HCG, Qual Negative (Negative) 11/03/16 22:59 Urine Opiates Screen Presumptive positive 11/03/16 22:59 Urine Methadone Screen Presumptive negative 11/03/16 22:59 Ur Barbiturates Screen Presumptive negative 11/03/16 22:59 Ur Phencyclidine Scrn Presumptive negative 11/03/16 22:59 Ur Amphetamines Screen Presumptive negative 11/03/16 22:59 U Benzodiazepines Scrn Presumptive negative 11/03/16 22:59 Urine Cocaine Screen Presumptive negative 11/03/16 22:59 U Marijuana (THC) Screen Presumptive negative 11/03/16 22:59 Drugs of Abuse Note Disclamer 11/03/16 22:59
[2016-11-08] MEDS: D5NS 1,000 ML IV SCH (15:17)
[2016-11-08] MEDS ORDERED: VENOFER 100 MG in NACL 0.9% 50 ML IV ONE (15:51)
[2016-11-08] MEDS: DIFLUCAN/NS 100 MG/50 ML 100 MG/50 ML BAG IV SCH (17:31)
[2016-11-09] MEDS: ROCEPHIN/NS 1 GM/50 ML 1 GM/50 ML BAG IV SCH (02:20)
[2016-11-09 04:27] LABS: Hemoglobin 7.3 gm/dl (10.1-14.3); Mean Corpuscular HGB Conc 32 % (30-34); Mean Corpuscular Hemoglobin 28 pg (28-32); Mean Corpuscular Volume 87 fl (79-97); Platelet Count 298 K/mm3 (140-440); Red Blood Count 2.64 M/mm3 (3.65-5.03); Red Cell Distribution Width 18.1 % (13.2-15.2)
[2016-11-09 04:30] LABS: Anion Gap 17 mmol/L; Blood Urea Nitrogen 5 mg/dL (7-17); Calcium 7.5 mg/dL (8.4-10.2); Carbon Dioxide 21 mmol/L (22-30); Chloride 106.6 mmol/L (98-107); Glucose 101 mg/dL (65-100); Sodium 142 mmol/L (137-145)
[2016-11-09 04:34] LABS: Potassium 2.9 mmol/L (3.6-5.0)
[2016-11-09 05:40] LABS: Anisocytosis 1+; Basophils % (Manual) 0 % (0.0-1.8); Blastocytes % (Manual) 0 %; Diff Status Complete; Elliptocytes Few; Macrocytosis Few; Polychromasia Rare
[2016-11-09] MEDS: D5NS 1,000 ML IV SCH (07:19)
[2016-11-09] MEDS: NOVOLOG SUB-Q SCH ×4 (08:49→23:17)
--- NOTE | 2016-11-09 11:16 | Progress Note ---
Subjective - Reason for Consult Consult date: 11/09/16 Reason for consult: Psychiatry Follow-up - Chief Complaint Chief complaint: Patient confused" 46-year-old female seen on the medical floor for psychiatric evaluation. Today patient is confused, but clam during assessment. Upon arrival to her room, she was resting but was easily aroused. When asked her location, she stated "[place]." I explained to her that she is located at [facility] and she stated "Oh really." She would answer questions with a delay or not answer at all. She could not tell me where she resides or if she feel depressed at this time. Patient would look off during discussion possibly responding to external stimuli. Per the staff, patient's appetite is poor. No gestures of SI/HI's and AVH's at this time. Unable to complete MMSE with patient. Mental Status Exam - Vital signs Last Vital Signs Temp 98.4 F 11/09/16 08:24 Pulse 104 H 11/09/16 08:24 Resp 18 11/09/16 08:24 BP 124/73 11/09/16 08:24 Pulse Ox 100 11/09/16 08:24 - Exam Narrative exam: MSE: Appearance: calm, cooperative Behavior: good eye contact Speech: low rate and and tone Mood: "I don't know" Affect: mood congruent Thought Process: disorganized Thought Content: denies SI/HI's and AVH's Motor Activity: lying in bed Cognition: alert to name Insight: impaired Judgment: impaired Assessment and Plan Impression: 46-year-old female seen on the medical floor for psychiatric evaluation. Today patient is confused, but clam during assessment. Upon arrival to her room, she was resting but was easily aroused. When asked her location, she stated "[place]." I explained to her that she is located at [facility] and she stated "Oh really." She would answer questions with a delay or not answer at all. No gestures of SI/HI's and AVH's. Hgb 7.3, K 2.9, creatinine 0.2 , calcium 7.5. Recommendation/Plan: Evaluating the severity of the depression is difficult since she is experiencing altered mental status. Changing her antidepressant at this time would likely not change her current presentation. Delirium should resolve as the underlying medical conditions are addressed. - Continue medical management to treat underlying conditions such as sepsis, to help resolve the delirium - Frequently reorient patient and involve her in their care (simple explanations of procedures, tests, medications). - Lights on and shades open during daytime hours. - Write date and goals of care in a visible place. - Try to avoid unnecessary interruptions to sleep during nighttime hours. - Obtain glasses, hearing aids from home if patient uses these at baseline. - Avoid medications that may exacerbate delirium (especially narcotics, benzodiazepines, barbiturates, ambien, lunesta, and medications with excessive anticholinergic properties) - D/C'd Paxil until delirium resolves. The patient does not have the capacity to leave against medical advice. The patient has not been able to demonstrate ability to care for self and should be maintained in a structured environment. Given her lack of capacity to make a decision, a surrogate decision maker should be named to make medical, placement , and discharge decisions. Should the patient try to leave, they should not be allowed unless the surrogate decision maker has agreed. The risk, benefits, and alternative options to holding the patient for placement should be discussed with the surrogate, and he/she must also demonstrate understanding of these principles. If a surrogate decision maker has not been identified, the hospital should act in the patients best interest until one can be identified or a guardian established. At this time, we feel it is in the patients best interest to remain at [facility] in a structured environment with adequate support for daily living until she is able to return home or another placement. The patient does not meet criteria for a 1013 or any other psychiatric legal hold.
[2016-11-09] MEDS: PAXIL PO SCH (11:41)
[2016-11-09] MEDS: K-DUR PO ONE ×2 (11:46→14:02)
[2016-11-09] MEDS ORDERED: K-DUR PO ONE (12:30)
[2016-11-09] MEDS: KCL 10MEQ/100ML 10 MEQ/100 ML BAG IV SCH ×4 (14:10→23:16)
[2016-11-09] MEDS: DIFLUCAN/NS 100 MG/50 ML 100 MG/50 ML BAG IV SCH (18:02)
--- NOTE | 2016-11-09 18:02 | Progress Note ---
Assessment and Plan Assessment and plan: 1. Acute toxic metabolic encephalopathy Secondary to infection/electrolytes abnormalities/severe deppression with severe malnutrition and nutritional deficiencies 2. Sepsis Status post buttock abscess I&D last month; completed antibiotic course, but still has open wound with drainage per her report; evaluated by wound care nurse today and there are 2 attack incisions noncommunicating between them, with no drainage and no other; wound culture grew enterococcus, Enterobacter, Klebsiella UA positive for yeast, urine culture obtained, result with usual skin shadi; no mention about yeast As she presented for diarrhea, C. difficile checked and negative Organisms sensitive to Bactrim, but unable to take by mouth Continue IV antibiotic and add Diflucan 3. Hypokalemia Replete, recheck in am 4. Anemia Normocytic anemia - anemia of chronic inflammation/nutritional deficiencies/ malnutrition Iron the lower limit of normal, folate decreased and B12 within normal limits Monitor H&H Folic acid and iron supplementation; will give Fe iv as not taking po 5. Malnutrition Dietitian consulted for supplementation 6. Diabetes With gastroparesis per history; NM gastric emptying ordered, but unobtainable as she is not eating/swallowing Metformin on hold Accu-Cheks and SSI 7. Ischemic cardiomyopathy status post AICD placement Not on any medications at home 8. Psychiatric disorder On Paxil Psychiatry consulted for further recommendations as she has severe depression and this may be the reason she is not eating (40 pounds weight loss in the last 3-4 months after her brother ) 9. DVT prophylaxis SCDs. Hold anticoagulation given anemia 10. New sacral decubitus ulcer Local wound care 11. Discharge planning Evaluated by hospice today, likely will be discharged on home hospice tomorrow History Interval history: not eating at all, NM gastric emptying study unable to be obtained; extremely weak, unable to perform any daily living activity; evaluated by hospice today Hospitalist Physical - Constitutional Vitals: Temp Pulse Resp BP Pulse Ox 98.9 F 104 H 20 107/75 99 11/09/16 15:33 11/09/16 15:33 11/09/16 15:33 11/09/16 15:33 11/09/16 15:33 General appearance: Present: no acute distress, cachectic - EENT Eyes: Present: PERRL, EOM intact - Neck Neck: Present: supple. Absent: enlarged thyroid, masses or JVD - Respiratory Respiratory effort: normal Respiratory: bilateral: CTA, negative: rhonchi, wheezing - Cardiovascular Rhythm: other (tachycardic) Heart Sounds: Present: S1 & S2. Absent: systolic murmur - Extremities Extremities: no ischemia - Abdominal General gastrointestinal: soft, non-tender, non-distended, normal bowel sounds - Integumentary Integumentary: Present: pale - Psychiatric Psychiatric: no appropriate mood/affect, no intact judgment & insight Results - Labs CBC & Chem 7: 11/09/16 03:54 11/09/16 03:54 Labs: Laboratory Last Values WBC 9.0 K/mm3 (4.5-11.0) 11/09/16 03:54 RBC 2.64 M/mm3 (3.65-5.03) L 11/09/16 03:54 Hgb 7.3 gm/dl (10.1-14.3) L 11/09/16 03:54 Hct 23.0 % (30.3-42.9) L 11/09/16 03:54 MCV 87 fl (79-97) 11/09/16 03:54 MCH 28 pg (28-32) 11/09/16 03:54 MCHC 32 % (30-34) 11/09/16 03:54 RDW 18.1 % (13.2-15.2) H 11/09/16 03:54 Plt Count 298 K/mm3 (140-440) 11/09/16 03:54 Lymph % (Auto) 31.6 % (13.4-35.0) 11/06/16 05:15 Harris % (Auto) 4.6 % (0.0-7.3) 11/06/16 05:15 Eos % (Auto) 2.6 % (0.0-4.3) 11/06/16 05:15 Baso % (Auto) 0.5 % (0.0-1.8) 11/06/16 05:15 Lymph # 2.8 K/mm3 (1.2-5.4) 11/06/16 05:15 Harris # 0.4 K/mm3 (0.0-0.8) 11/06/16 05:15 Eos # 0.2 K/mm3 (0.0-0.4) 11/06/16 05:15 Baso # 0.0 K/mm3 (0.0-0.1) 11/06/16 05:15 Add Manual Diff Complete 11/09/16 03:54 Total Counted 100 11/09/16 03:54 Seg Neutrophils % 60.7 % (40.0-70.0) 11/06/16 05:15 Seg Neuts % (Manual) 59.0 % (40.0-70.0) 11/09/16 03:54 Band Neutrophils % 0 % 11/09/16 03:54 Lymphocytes % (Manual) 38.0 % (13.4-35.0) H 11/09/16 03:54 Reactive Lymphs % (Man) 0 % 11/09/16 03:54 Monocytes % (Manual) 1.0 % (0.0-7.3) 11/09/16 03:54 Eosinophils % (Manual) 1.0 % (0.0-4.3) 11/09/16 03:54 Basophils % (Manual) 0 % (0.0-1.8) 11/09/16 03:54 Metamyelocytes % 0 % 11/09/16 03:54 Myelocytes % 1.0 % 11/09/16 03:54 Promyelocytes % 0 % 11/09/16 03:54 Blast Cells % 0 % 11/09/16 03:54 Nucleated RBC % 1.0 % (0.0-0.9) H 11/09/16 03:54 Seg Neutrophils # 5.3 K/mm3 (1.8-7.7) 11/06/16 05:15 Seg Neutrophils # Man 5.3 K/mm3 (1.8-7.7) 11/09/16 03:54 Band Neutrophils # 0.0 K/mm3 11/09/16 03:54 Lymphocytes # (Manual) 3.4 K/mm3 (1.2-5.4) 11/09/16 03:54 Abs React Lymphs (Man) 0.0 K/mm3 11/09/16 03:54 Monocytes # (Manual) 0.1 K/mm3 (0.0-0.8) 11/09/16 03:54 Eosinophils # (Manual) 0.1 K/mm3 (0.0-0.4) 11/09/16 03:54 Basophils # (Manual) 0.0 K/mm3 (0.0-0.1) 11/09/16 03:54 Metamyelocytes # 0.0 K/mm3 11/09/16 03:54 Myelocytes # 0.1 K/mm3 11/09/16 03:54 Promyelocytes # 0.0 K/mm3 11/09/16 03:54 Blast Cells # 0.0 K/mm3 11/09/16 03:54 WBC Morphology Not Reportable 11/09/16 03:54 Hypersegmented Neuts Not Reportable 11/09/16 03:54 Hyposegmented Neuts Not Reportable 11/09/16 03:54 Hypogranular Neuts Not Reportable 11/09/16 03:54 Smudge Cells Not Reportable 11/09/16 03:54 Toxic Granulation Not Reportable 11/09/16 03:54 Toxic Vacuolation Not Reportable 11/09/16 03:54 Dohle Bodies Not Reportable 11/09/16 03:54 Pelger-Huet Anomaly Not Reportable 11/09/16 03:54 Joel Rods Not Reportable 11/09/16 03:54 Platelet Estimate Appears normal 11/09/16 03:54 Clumped Platelets Not Reportable 11/09/16 03:54 Plt Clumps, EDTA Not Reportable 11/09/16 03:54 Large Platelets Not Reportable 11/09/16 03:54 Giant Platelets Not Reportable 11/09/16 03:54 Platelet Satelliting Not Reportable 11/09/16 03:54 Plt Morphology Comment Not Reportable 11/09/16 03:54 RBC Morphology Not Reportable 11/09/16 03:54 Dimorphic RBCs Not Reportable 11/09/16 03:54 Polychromasia Rare 11/09/16 03:54 Hypochromasia Not Reportable 11/09/16 03:54 Poikilocytosis Not Reportable 11/09/16 03:54 Anisocytosis 1+ 11/09/16 03:54 Microcytosis Not Reportable 11/09/16 03:54 Macrocytosis Few 11/09/16 03:54 Spherocytes Not Reportable 11/09/16 03:54 Pappenheimer Bodies Not Reportable 11/09/16 03:54 Sickle Cells Not Reportable 11/09/16 03:54 Target Cells Not Reportable 11/09/16 03:54 Tear Drop Cells Not Reportable 11/09/16 03:54 Ovalocytes Not Reportable 11/09/16 03:54 Helmet Cells Not Reportable 11/09/16 03:54 Felton-Matlock Bodies Not Reportable 11/09/16 03:54 [place] Rings Not Reportable 11/09/16 03:54 [place] Cells Not Reportable 11/09/16 03:54 Bite Cells Not Reportable 11/09/16 03:54 Crenated Cell Not Reportable 11/09/16 03:54 Elliptocytes Few 11/09/16 03:54 Acanthocytes (Spur) Not Reportable 11/09/16 03:54 Rouleaux Not Reportable 11/09/16 03:54 Hemoglobin C Crystals Not Reportable 11/09/16 03:54 Schistocytes Not Reportable 11/09/16 03:54 Malaria parasites Not Reportable 11/09/16 03:54 Prashant Bodies Not Reportable 11/09/16 03:54 Hem Pathologist Commnt No 11/09/16 03:54 PT 17.8 Sec. (12.2-14.9) H 11/03/16 22:25 INR 1.47 (0.87-1.13) H 11/03/16 22:25 VBG pH 7.438 (7.320-7.420) H 11/03/16 22:25 Sodium 142 mmol/L (137-145) 11/09/16 03:54 Potassium 2.9 mmol/L (3.6-5.0) L* 11/09/16 03:54 Chloride 106.6 mmol/L (98-107) 11/09/16 03:54 Carbon Dioxide 21 mmol/L (22-30) L 11/09/16 03:54 Anion Gap 17 mmol/L 11/09/16 03:54 BUN 5 mg/dL (7-17) L 11/09/16 03:54 Creatinine 0.2 mg/dL (0.7-1.2) L 11/09/16 03:54 Estimated GFR > 60 ml/min 11/09/16 03:54 BUN/Creatinine Ratio 25.00 % 11/09/16 03:54 Glucose 101 mg/dL (65-100) H 11/09/16 03:54 POC Glucose 117 (70-105) H 11/09/16 16:31 Lactic Acid 1.3 mmol/L (0.7-2.0) 11/04/16 01:07 Calcium 7.5 mg/dL (8.4-10.2) L 11/09/16 03:54 Magnesium 1.60 mg/dL (1.7-2.3) L 11/03/16 22:25 Iron 52 ug/dL (37-170) 11/06/16 05:15 TIBC 102 mcg/dL (250-450) L 11/06/16 05:15 Total Bilirubin 1.50 mg/dL (0.1-1.2) H 11/03/16 22:25 AST 9 units/L (5-40) 11/03/16 22:25 ALT 8 units/L (7-56) 11/03/16 22:25 Alkaline Phosphatase 125 units/L (35-129) 11/03/16 22:25 Total Creatine Kinase 13 units/L (30-135) L 11/03/16 22:25 Total Protein 6.8 g/dL (6.3-8.2) 11/03/16 22:25 Albumin 2.8 g/dL (3.9-5) L 11/03/16 22:25 Albumin/Globulin Ratio 0.7 % 11/03/16 22:25 Vitamin B12 484.7 pg/mL (211-911) 11/06/16 05:15 Folate 5.82 ng/mL (7.3-26.0) L 11/06/16 05:15 TSH 0.398 mlU/mL (0.270-4.200) 11/03/16 22:25 Urine Color Barbara (Yellow) 11/03/16 22:59 Urine Turbidity Clear (Clear) 11/03/16 22:59 Urine pH 6.0 (5.0-7.0) 11/03/16 22:59 Ur Specific [place] 1.023 (1.003-1.030) 11/03/16 22:59 Urine Protein 30 mg/dl mg/dL (Negative) 11/03/16 22:59 Urine Glucose (UA) Neg mg/dL (Negative) 11/03/16 22:59 Urine Ketones Tr mg/dL (Negative) 11/03/16 22:59 Urine Blood Neg (Negative) 11/03/16 22:59 Urine Nitrite Neg (Negative) 11/03/16 22:59 Urine Bilirubin Sm (Negative) 11/03/16 22:59 Urine Ictotest Negative (Negative) 11/03/16 22:59 Urine Urobilinogen 4.0 mg/dL (<2.0) 11/03/16 22:59 Ur Leukocyte Esterase Neg (Negative) 11/03/16 22:59 Urine WBC (Auto) 21.0 /HPF (0.0-6.0) H 11/06/16 Unknown Urine RBC (Auto) 96.0 /HPF (0.0-6.0) 11/06/16 Unknown U Epithel Cells (Auto) 2.0 /HPF (0-13.0) 11/06/16 Unknown Urine Bacteria (Auto) 1+ /HPF (Negative) 11/03/16 22:59 Hyaline Casts 3 /LPF 11/06/16 Unknown Urine Mucus 3+ /HPF 11/06/16 Unknown Urine Yeast (Budding) 3+ /HPF 11/06/16 Unknown Urine HCG, Qual Negative (Negative) 11/03/16 22:59 Urine Opiates Screen Presumptive positive 11/03/16 22:59 Urine Methadone Screen Presumptive negative 11/03/16 22:59 Ur Barbiturates Screen Presumptive negative 11/03/16 22:59 Ur Phencyclidine Scrn Presumptive negative 11/03/16 22:59 Ur Amphetamines Screen Presumptive negative 11/03/16 22:59 U Benzodiazepines Scrn Presumptive negative 11/03/16 22:59 Urine Cocaine Screen Presumptive negative 11/03/16 22:59 U Marijuana (THC) Screen Presumptive negative 11/03/16 22:59 Drugs of Abuse Note Disclamer 11/03/16 22:59
[2016-11-10] MEDS: ROCEPHIN/NS 1 GM/50 ML 1 GM/50 ML BAG IV SCH (03:03)
[2016-11-10] MEDS: D5NS 1,000 ML IV SCH (05:45)
[2016-11-10 05:46] LABS: Hematocrit 21.1 % (30.3-42.9); Hemoglobin 6.8 gm/dl (10.1-14.3)
[2016-11-10 06:30] LABS: BUN/Creatinine Ratio 16.66; Blood Urea Nitrogen 5 mg/dL (7-17); Calcium 8.1 mg/dL (8.4-10.2); Carbon Dioxide 20 mmol/L (22-30); Chloride 109.6 mmol/L (98-107); Glucose 108 mg/dL (65-100); Potassium 3.4 mmol/L (3.6-5.0); Sodium 146 mmol/L (137-145)
[2016-11-10 06:31] LABS: Anion Gap 20 mmol/L
[2016-11-10] MEDS: NOVOLOG SUB-Q SCH ×3 (09:25→18:04)
--- NOTE | 2016-11-10 10:00 | Discharge Summary ---
Providers - Providers Date of Admission: 11/04/16 01:35 Date of discharge: 11/10/16 Attending physician: FLORESITA KELLY 11/04/16 02:53 Consult to Wound/ET Nurse [CONS] Routine Reason For Exam: wound eval 11/07/16 13:54 Consult to Dietitian/Nutrition [CONS] Urgent Physician Instructions: Poor po intake Reason For Exam: Reason for Consult: Pt needs oral supplement 11/07/16 17:42 Physical Therapy Evaluation and Treat [CONS] Urgent Comment: Reason For Exam: debility 11/07/16 17:44 Consult to Mental Health [CONS] Urgent Reason For Exam: severe depression Place consult to:: Notified:: No Primary care physician: PU[employer] TRA[employer]ER Hospitalization Reason for admission: unhealing wound, generalized weakness Condition: Poor Pertinent studies: CXR CT head Hospital course: Patient is a 46 years old female with nonischemic cardiomyopathy, diabetes, infected buttock cyst status post I&D during previous hospitalization, for which she completed antibiotic course, who returned to the hospital c/o unhealing open wound with foul smelling drainage. Started on iv antibiotics and wound care nurse consulted - assessment revealed 2 healing surgical sites with no drainage or odor, granulating tissue. Her UA was sugestive of UTI, so urine culture obtained. She completed antibiotic course that covered both UTI/wound infection. He has extreme generalized weakness due to prolonged immobility and severe malnutrition/anemia as she was not eating at least for the last couple of months per her family report. It seems her decline started approximately 4 months ago after her brother's . Family is unable to care for her, and placement in a facility impossible, so she ended up being evaluated by hospice and accepted. She will be discharged on home hospice. Discharge diagnoses: 1. Acute toxic metabolic encephalopathy 2. Sepsis 3. Hypokalemia 4. Anemia of chronic inflammation/nutritional deficiencies 5. Malnutrition 6. Diabetes 7. Nonischemic cardiomyopathy s/p AICD placement 8. Psychiatric disorder 9. Debility Disposition: DC TO HOSPICE (HOME) Time spent for discharge: 35 min Core Measure Documentation - Palliative Care Palliative Care/ Comfort Measures: Hospice Care - Core Measures Any of the following diagnoses?: none Exam - Physical Exam Narrative exam: Patient seen and examined: - Constitutional Vitals: Temp Pulse Resp BP Pulse Ox 98.9 F 96 H 18 111/69 99 11/10/16 07:00 11/10/16 07:00 11/10/16 07:00 11/10/16 07:00 11/10/16 07:00 General appearance: Present: no acute distress, cachectic - EENT Eyes: Present: PERRL, EOM intact - Neck Neck: Absent: enlarged thyroid, masses or JVD, carotid bruits - Respiratory Respiratory effort: normal Respiratory: bilateral: diminished, negative: rhonchi, wheezing - Cardiovascular Rhythm: other (tachycardic) - Extremities Extremities: no ischemia - Abdominal General gastrointestinal: Present: soft, non-tender, non-distended, normal bowel sounds - Musculoskeletal Musculoskeletal: generalized weakness - Psychiatric Psychiatric: no appropriate mood/affect, no intact judgment & insight, depressed - Neurologic Neurologic: moves all extremities - Additional findings Additional findings: Buttock healing wounds, sacral decubitus Plan Activity: advance as tolerated, fall precautions Diet: regular Follow up with: PRIMARY CARE,MD [Primary Care Provider] - 3-5 Days (recheck BMP) Prescriptions: Acetaminophen [Acetaminophen TAB] 650 mg PO Q4H PRN #30 tablet PRN Reason: Pain MILD(1-3)/Fever >100.5/BAL Folic Acid/Vit Bcomp,C [B-Complex with Vit C Tablet] 400 mcg PO DAILY #30 tablet Pending Studies pending transfusion of 1 unit PRBC and iv K+ administration
[2016-11-10] MEDS: KCL 10MEQ/100ML 10 MEQ/100 ML BAG IV SCH ×2 (12:53→15:14)
[2016-11-10] MEDS ORDERED: NACL 0.9% 500 ML 500 ML IV ONE (13:00)
--- NOTE | 2016-11-10 14:55 | Progress Note ---
Subjective - Reason for Consult Consult date: 11/10/16 Reason for consult: psychiatric follow up - Chief Complaint Chief complaint: "uhh" 46-year-old female seen on the medical floor for psychiatric evaluation. Today patient is confused and made eye contact initially during assessment. Upon arrival to her room, she was resting but was easily aroused. She did not answer questions today. Unable to determine if she feels depressed at this time. Per the staff, patient's appetite is poor and she has to be fed. No gestures of SI/HI's and AVH's at this time. Unable to complete MMSE with patient. Mental Status Exam - Vital signs Last Vital Signs Temp 98.3 F 11/10/16 11:00 Pulse 107 H 11/10/16 11:00 Resp 18 11/10/16 11:00 BP 153/92 11/10/16 11:00 Pulse Ox 99 11/10/16 07:00 - Exam Narrative exam: Orientation: person Affect: flat, depressed Mood: congruent with affect Thought content: other (unable to determine) Thought Process: Disoriented Perceptions: other (unable to assess) Speech: minimal response (slow and slurred at times) Concentration: unable to pay attention Motor activity: restless Level of consciousness: confused Memory: Recent Impaired Appetite: decreased Interaction: other (she attempted to be cooperative) Assessment and Plan Impression: 46-year-old female seen on the medical floor for psychiatric evaluation. Today patient is confused and did answer questions. Unable to assess depression. Recommendation/Plan: Evaluating the severity of the depression is difficult since she is experiencing altered mental status. Changing her antidepressant at this time would likely not change her current presentation. Delirium should resolve as the underlying medical conditions are addressed. - Continue medical management to treat underlying conditions such as sepsis, to help resolve the delirium - Frequently reorient patient and involve her in their care (simple explanations of procedures, tests, medications). - Lights on and shades open during daytime hours. - Write date and goals of care in a visible place. - Try to avoid unnecessary interruptions to sleep during nighttime hours. - Obtain glasses, hearing aids from home if patient uses these at baseline. - Avoid medications that may exacerbate delirium (especially narcotics, benzodiazepines, barbiturates, ambien, lunesta, and medications with excessive anticholinergic properties) - D/C'd Paxil until delirium resolves. The patient does not have the capacity to leave against medical advice. The patient has not been able to demonstrate ability to care for self and should be maintained in a structured environment. Given her lack of capacity to make a decision, a surrogate decision maker should be named to make medical, placement , and discharge decisions. Should the patient try to leave, they should not be allowed unless the surrogate decision maker has agreed. The risk, benefits, and alternative options to holding the patient for placement should be discussed with the surrogate, and he/she must also demonstrate understanding of these principles. If a surrogate decision maker has not been identified, the hospital should act in the patients best interest until one can be identified or a guardian established. At this time, we feel it is in the patients best interest to remain at [facility] in a structured environment with adequate support for daily living until she is able to return home or another placement. The patient does not meet criteria for a 1013 or any other psychiatric legal hold. Patient likely being discharged to hospice per the record
[2016-11-10] MEDS: DIFLUCAN/NS 100 MG/50 ML 100 MG/50 ML BAG IV SCH (17:59)
[2016-11-10 20:00] VITALS: BP 158/83
== END 2016-11-10 19:00 | disposition hospice, home (50) | DRG 871 ==
LOC: ED 21:48 → 3A 11-04 01:35
PROVIDERS: ADMIT Internal Medicine; ATTEND Internal Medicine
PROC: 30233N1 Transfusion of Nonautologous Red Blood Cells into Peripheral Vein, Percutaneous Approach (ICD-10-PCS; principal; 2016-11-10)
DX: A41.9 Sepsis, unspecified organism (principal); G92 Toxic encephalopathy; E43 Unspecified severe protein-calorie malnutrition; N39.0 Urinary tract infection, site not specified; I42.9 Cardiomyopathy, unspecified; S31.809A Unspecified open wound of unspecified buttock, initial encounter; E11.43 Type 2 diabetes mellitus with diabetic autonomic (poly)neuropathy; K31.84 Gastroparesis; I11.0 Hypertensive heart disease with heart failure; I50.9 Heart failure, unspecified; F17.210 Nicotine dependence, cigarettes, uncomplicated; E87.6 Hypokalemia; F99 Mental disorder, not otherwise specified; E83.42 Hypomagnesemia; F32.9 Major depressive disorder, single episode, unspecified; R41.0 Disorientation, unspecified; L89.159 Pressure ulcer of sacral region, unspecified stage; D53.9 Nutritional anemia, unspecified; R53.1 Weakness; Z82.49 Family history of ischemic heart disease and other diseases of the circulatory system; Z68.23 Body mass index [BMI] 23.0-23.9, adult; Z95.810 Presence of automatic (implantable) cardiac defibrillator; Z88.1 Allergy status to other antibiotic agents; Z88.2 Allergy status to sulfonamides
CPT/HCPCS: 36415; 70450; 71010; 80048; 80053; 80307; 81001; 81015; 81025; 82140; 82550; 82607; 82747; 82805; 82962; 83550; 83735; 84132; 84443; 85007; 85014; 85018; 85025; 85610; 86850; 86900; 86901; 86920; 87040; 87076; 87086; 87116; 87186; 87493; 93005; 93010; 96365; 99406; J0696; J1450; J1756; J1815; J2405; J3475; J3480; J7030; J7040; J7042; P9016